=== PATIENT | female | born 1935 | race Caucasian/White ===

== ENCOUNTER 2017-06-10 17:16 | Inpatient (IN) | payer OTHER ==
[~2017-06-10] VITALS: Ht 152.4 cm; Wt 54.2 kg
[2017-06-10] VITALS (12 sets, daily range): BP systolic 97–134; BP diastolic 58–81; PULSE 54–106; TEMP 36.2–37.1; O2SAT 97–98; Ht 152.4 cm; Wt 54.2 kg
[2017-06-10] MEDS ORDERED: ALUMINUM/MAGNESIUM/SIMETH (MAALOX MAX) 30 ML UDC PO PRN (18:30)
[2017-06-10] MEDS ORDERED: OXYCODONE HCL IR 5 MG TAB (IMMEDIATE RELEASE) PO PRN (18:30)
[2017-06-10] MEDS ORDERED: ACETAMINOPHEN 325 MG TAB PO PRN (18:30)
[2017-06-10] MEDS ORDERED: NITROGLYCERIN 0.4 MG SL PER TAB CHARGE SL PRN (18:30)
[2017-06-10 19:19] LABS: HEMATOCRIT 32.4 % (37-47); HEMOGLOBIN 9.9 g/dL (12.0-16.0); MEAN CELL VOLUME 91.8 fL (80-100); MEAN CORPUSCULAR HGB CONC 30.6 g/dl (32-36); MEAN PLATELET VOLUME 11.1 fL (7.4-10.4); PLATELET COUNT 283 K/uL (130-400); RED CELL DISTRIBUTION WIDTH CV 23.9 % (11.5-14.5); RED CELL DISTRIBUTION WIDTH SD 79.6 fL (36.4-46.3); WHITE BLOOD COUNT 9.52 K/uL (4.8-10.8)
--- NOTE | 2017-06-10 19:28 | HISTORY & PHYSICAL EXAMINATION ---
DATE OF ADMISSION: 06/10/2017 CHIEF COMPLAINT: Not feeling well, end-stage renal disease requiring dialysis. HISTORY OF PRESENT ILLNESS: This is an 82-year-old female with past medical history significant for chronic kidney disease stage IV, paroxysmal atrial fibrillation, chronic combined systolic and diastolic heart failure, hypertension, history of branch retinal vein occlusion, history of anemia, GERD, history of malignant neoplasm of colon, iron deficiency anemia, mitral and aortic incompetence, history of neutropenia, history of peripheral vascular disease, history of restless leg syndrome, history of hypothyroidism, osteoporosis, hyperlipidemia who was directly admitted by nephrology for dialysis. The patient recently 3 weeks ago was in [facility] and had a tunneled catheter placed and had dialysis 2 sessions. After that, the tunneled catheter was removed. As per family and patient they do not know why the dialysis was stopped and after going home she was not feeling well, still weak and tired, poor appetite, not feeling well and nephrology again decided to restart the dialysis and the dialysis catheter was again replaced and she was directly admitted for reinitiating of dialysis. She also has a bruise in her left upper extremity from the recent fistula placement. The patient denies any headaches. No blurred visions, some dizziness. No nausea, no vomiting, no chest pain, no shortness of breath, no cough, no fever, no chills, no abdominal pain. Constipated. Otherwise, feeling weak and tired and not walking much at home because of weakness and she lives with her son and family. Currently resting comfortably . ALLERGIES: CLARITHROMYCIN, PENICILLIN, SULFA ANTIBIOTICS. PAST MEDICAL HISTORY: As mentioned above. PAST SURGICAL HISTORY: Biopsy of the breast, colonoscopy with biopsy, tunneled catheter insertion, laparoscopic cholecystectomy, partial removal of colon, removal of ruptured appendix, cataract surgery, left carotid endarterectomy, total hysterectomy. The patient also has a right axillary to right femoral bypass and fem-fem bypass surgery. MEDICATIONS: The patient is on Toprol-XL 50 mg b.i.d., Colace 100 mg p.o. b.i.d., oxycodone 5 mg every 4 hours p.r.n., Tylenol 325 mg as needed, potassium chloride 20 mEq p.o. daily, Bumex 2 mg p.o. b.i.d., multivitamin with minerals 1 tablet daily, ferrous sulfate 325 mg p.o. b.i.d., cholecalciferol 5000 units p.o. daily, nitroglycerin 0.4 mg sublingual p.r.n., levothyroxine 112 mcg p.o. daily, amiodarone 200 mg p.o. daily, Lipitor 80 mg p.o. daily, oxygen 1 liter as directed at bedtime, Eliquis 2.5 mg p.o. b.i.d., vitamin B6 250 mg p.o. daily, calcitetrol 0.25 mcg p.o. daily, Requip 0.5 mg p.o. at bedtime, aspirin 81 mg p.o. daily. FAMILY HISTORY: Significant for father had throat cancer. Mother had diabetes. Sister has breast cancer and leukemia. Brother had leukemia. SOCIAL HISTORY: . Former smoker, quit in 1992. No alcohol use. No drug use. Currently lives with her son and family. REVIEW OF SYMPTOMS: As per HPI. Rest of review of systems negative. PHYSICAL EXAMINATION: GENERAL: Old and frail, not in distress. The physical exam reveals alert and oriented x3, not in distress. VITAL SIGNS: Currently unavailable. HEENT: No pallor, no icterus. NECK: No JVD, no neck masses, no carotid bruits. CARDIOVASCULAR: S1, S2 heard, regular rate and rhythm, no murmur, no gallop. RESPIRATORY SYSTEM: Clear to auscultation bilaterally. No wheezing, mild bibasilar crackles. ABDOMEN: Soft, bowel sounds present. Nontender. No distention. CENTRAL NERVOUS SYSTEM: Cranial nerves II-XII grossly intact. Nonfocal. EXTREMITIES: Trace edema. No erythema seen. LABORATORIES: Unavailable at this time. ASSESSMENT AND PLAN: This is an 82-year-old female who presents with not feeling well and requiring dialysis. 1. Chronic end-stage renal disease requiring dialysis. The patient was recently in [place] for 2 session of dialysis, but tunneled catheter was removed and since discharged not feeling well, weak and tired, poor appetite . Nephrology direct admitted for reinitiating dialysis. The patient already had tunneled catheter replaced, has a fistula placed in the left upper extremity which is bruised. Plan is to reinitiate dialysis tonight. Follow the labs. As per nephrology to continue home medication of Bumex 2 mg b.i.d. and also potassium chloride 20 mEq p.o. daily and follow the labs . 2. History of atrial fibrillation, rate controlled. Continue Toprol-XL 50 mg p.o. b.i.d., amiodarone 200 mg p.o. daily and Eliquis 2.5 mg p.o. b.i.d. Monitor on tele floor. 3. History of hypertension. Continue Toprol-XL and diuretics. Monitor the blood pressure. 4. History of hyperlipidemia. Continue statin. 5. History of hypothyroidism. Continue Synthroid. 6. History of restless legs syndrome. Continue Requip. 7. History of chronic combined systolic and diastolic heart failure. The patient is on Bumex 2 mg b.i.d., which we will continue. The patient is also getting dialysis. We will consulted cardiology for further optimizing her medical management. 8. Gastroesophageal reflux disease, proton pump inhibitor. 9. Anemia most likely anemia of chronic kidney disease . on iron supplements. We will follow the labs. 10. Deep vein thrombosis prophylaxis, SCDs and TEDs and eliquis 11. Disposition: Close monitor in tele floor. PT and OT prior to discharge. Social service to help with discharge planning. Level 1 full code. MTDD
--- NOTE | 2017-06-10 19:31 | DIAGNOSTIC IMAGING REPORT ---
CHEST ONE VIEW PORTABLE CLINICAL HISTORY: sob COMPARISON STUDY: No previous studies for comparison. FINDINGS: The heart is enlarged. There is a right sided dual-lumen central venous catheter.[ There is radiographic evidence of congestive failure/fluid overload. There are bilateral pleural effusions right greater than left. Right basilar airspace opacities likely representing compressive atelectasis. IMPRESSION: Cardiomegaly and radiographic evidence of congestive failure/fluid overload. Bilateral pleural effusions right greater than left. Electronically signed by: Jayant Velarde M.D. 06/10/2017 7:29 PM Dictated Date/Time: 06/10/2017 7:28 PM
[2017-06-10 19:41] LABS: CALCIUM 8.8 mg/dl (8.5-10.1); CREATININE 2.2 mg/dl (0.60-1.20); POTASSIUM 3.7 mmol/L (3.5-5.1)
[2017-06-10] MEDS ORDERED: HEPARIN SOD 5000 UNIT/0.5 ML CARP SQ SCH (21:00)
[2017-06-10] MEDS: METOPROLOL SUCC 50MG EXT REL TAB PO SCH (22:19)
[2017-06-10] MEDS: APIXABAN 2.5 MG TAB PO SCH (22:19)
[2017-06-10] MEDS: ROPINIROLE HCL 0.25 MG TAB PO SCH (22:19)
[2017-06-11] VITALS (21 sets, daily range): BP systolic 84–112; BP diastolic 54–73; PULSE 51–75; TEMP 36.3–37; O2SAT 93–98
[2017-06-11 06:29] LABS: BASO % 0.5 %; BASO ABS # 0.04 K/uL (0-0.2); EOS % 2.6 %; EOS ABS # 0.19 K/uL (0-0.5); HEMATOCRIT 28.5 % (37-47); HEMOGLOBIN 8.7 g/dL (12.0-16.0); IG# 0.02 K/uL (0.00-0.02); LYMPH % 11.2 %; LYMPH ABS # 0.83 K/uL (1.2-3.4); MEAN CELL VOLUME 92.2 fL (80-100); MEAN CORPUSCULAR HEMOGLOBIN 28.2 pg (25-34); MEAN CORPUSCULAR HGB CONC 30.5 g/dl (32-36); MEAN PLATELET VOLUME 10.3 fL (7.4-10.4); MONO % 8.6 %; MONO ABS # 0.64 K/uL (0.11-0.59); NEUT % 76.8 %; NEUT ABS # 5.69 K/uL (1.4-6.5); PLATELET COUNT 197 K/uL (130-400); RED CELL DISTRIBUTION WIDTH CV 23.8 % (11.5-14.5); RED CELL DISTRIBUTION WIDTH SD 79.3 fL (36.4-46.3); WHITE BLOOD COUNT 7.41 K/uL (4.8-10.8)
[2017-06-11 06:57] LABS: CALCIUM 8.4 mg/dl (8.5-10.1); CREATININE 1.58 mg/dl (0.60-1.20); POTASSIUM 3.5 mmol/L (3.5-5.1)
[2017-06-11] MEDS: LEVOTHYROXINE 112 MCG TAB PO SCH (07:40)
[2017-06-11] MEDS: FERROUS SULFATE 325 MG TAB PO SCH ×2 (07:41→17:45)
--- NOTE | 2017-06-11 08:51 | Progress Note ---
Internal Med Progress Note Date of Service: Jun 11, 2017. Provider Documentation: SUBJECTIVE: Seen and examined at bedside Had dialysis yesterday and planned for dialysis today as well Denies chest pain, SOB, dizziness Nausea resolved BP on lower side this morning No other complaints OBJECTIVE: Vital Signs-as noted below Physical Exam: General Appearance:Moderately built and nourished, no apparent distress Head: normocephalic, Atraumatic Eyes: normal inspection, EOMI, PERRL Neck: supple, Trachea midline Respiratory/Chest: Normal breath sounds, CTA Cardiovascular: S1, S2, No murmur Abdomen/GI:Soft, Non tender, Bowel sounds present Extremities/Musculoskelatal:normal inspection, Trace edema Neurologic/Psych:AAOX3, grossly no focal neurological deficits Skin: normal color, warm Lab data as noted below. ASSESSMENT & PLAN: Patient is an 82-year-old female who presents with not feeling well and requiring dialysis. Patient is a direct admit on recommendations from Nephrology for reinitiation of Dialysis Chronic ESRD: Volume overload status: Dialysis as per Nephrology Continue Bumex 2 mg b.i.d, potassium chloride 20 mEq p.o. Monitor electrolytes Nephrology on board H/O atrial fibrillation: Sinus Bradycardia Rate controlled Continue amiodarone 200 mg daily Metoprolol on hold secondary to bradycardia On Eliquis for anticoagulation HTN: Continue diuretics Metoprolol on hold HLP: Continue statin. Hypothyroidism: Continue Synthroid Restless legs syndrome: Continue Requip H/O chronic combined systolic and diastolic heart failure: on Bumex Also volume status being managed through dialysis Cardiology consulted PVD Non specific ST-T wave changes Could not get cardiac cath in the past secondary to severe PVD Denies chest pain Continue ASA, stains GERD: Continue PPI Anemia OF chronic kidney disease: continue Iron supplements DVT Px: On eliquis Code Status: Full code Disposition: PT/OT Social service consulted Vital Signs: Date Time Temp Pulse Resp B/P (MAP) Pulse Ox O2 Delivery O2 Flow Rate FiO2 06/11/17 08:15 55 84/56 (65) 06/11/17 08:00 93 Nasal Cannula 1.0 06/11/17 07:07 36.7 53 16 93/57 (69) 96 Nasal Cannula 2.0 06/11/17 04:00 Nasal Cannula 2.0 06/11/17 03:58 36.4 51 17 99/62 (74) 97 Nasal Cannula 2.0 06/11/17 00:01 Nasal Cannula 2.0 06/11/17 00:00 36.6 51 16 90/54 (66) 98 Room Air 06/10/17 21:47 36.2 57 116/75 (89) 06/10/17 21:45 61 113/58 06/10/17 21:30 56 117/66 06/10/17 21:15 55 115/59 06/10/17 21:00 54 114/67 06/10/17 20:45 76 122/80 06/10/17 20:30 79 129/80 06/10/17 20:15 81 123/74 06/10/17 20:00 97 Nasal Cannula 2.0 06/10/17 20:00 75 111/63 06/10/17 19:44 36.6 76 134/81 (98) 06/10/17 19:18 36.6 74 22 106/72 (83) 97 Nasal Cannula 2.0 06/10/17 18:17 37.1 106 18 97/66 98 Nasal Cannula 2.0 Lab Results: Results Past 24 Hours Test 06/10/17 19:06 06/11/17 06:04 Range/Units White Blood Count 9.52 7.41 4.8-10.8 K/uL Red Blood Count 3.53 3.09 4.2-5.4 M/uL Hemoglobin 9.9 8.7 12.0-16.0 g/dL Hematocrit 32.4 28.5 37-47 % Mean Corpuscular Volume 91.8 92.2 80-100 fL Mean Corpuscular Hemoglobin 28.0 28.2 25-34 pg Mean Corpuscular Hemoglobin Concent 30.6 30.5 32-36 g/dl RDW Standard Deviation 79.6 79.3 36.4-46.3 fL RDW Coefficient of Variation 23.9 23.8 11.5-14.5 % Platelet Count 283 197 130-400 K/uL Mean Platelet Volume 11.1 10.3 7.4-10.4 fL Sodium Level 136 140 136-145 mmol/L Potassium Level 3.7 3.5 3.5-5.1 mmol/L Chloride Level 101 104 98-107 mmol/L Carbon Dioxide Level 27 27 21-32 mmol/L Anion Gap 8.0 9.0 3-11 mmol/L Blood Urea Nitrogen 42 28 7-18 mg/dl Creatinine 2.20 1.58 0.60-1.20 mg/dl Est Creatinine Clear Calc Drug Dose 16.0 22.1 ml/min Estimated GFR () 23.6 35.2 Estimated GFR (Non- 20.4 30.4 BUN/Creatinine Ratio 19.0 17.4 10-20 Random Glucose 102 80 70-99 mg/dl Calcium Level 8.8 8.4 8.5-10.1 mg/dl Chemistry Specimen Hemolysis Neutrophils (%) (Auto) 76.8 % Lymphocytes (%) (Auto) 11.2 % Monocytes (%) (Auto) 8.6 % Eosinophils (%) (Auto) 2.6 % Basophils (%) (Auto) 0.5 % Neutrophils # (Auto) 5.69 1.4-6.5 K/uL Lymphocytes # (Auto) 0.83 1.2-3.4 K/uL Monocytes # (Auto) 0.64 0.11-0.59 K/uL Eosinophils # (Auto) 0.19 0-0.5 K/uL Basophils # (Auto) 0.04 0-0.2 K/uL Immature Granulocyte % (Auto) 0.3 % Immature Granulocyte # (Auto) 0.02 0.00-0.02 K/uL Polychromasia 1+ Anisocytosis PRESENT Ovalocytes 1+ Schistocytes OCCASIONAL Magnesium Level 2.1 1.8-2.4 mg/dl
--- NOTE | 2017-06-11 09:49 | NEPHROLOGY CONSULTATION ---
DATE OF CONSULTATION: 06/11/2017 ATTENDING OF RECORD: Dr. Oakley. REASON FOR CONSULTATION: End-stage renal disease with volume overload. HISTORY OF PRESENT ILLNESS: This is an 82-year-old female who follows closely with [facility] Cardiology with paroxysmal aFib as well as systolic and diastolic heart failure who was recently admitted to [facility] and had 2 dialysis treatments and subsequently had the dialysis catheter removed and discharged. The patient after discharge slowly started to gain fluid, become more short of breath, was weak and tired with poor appetite. The patient was also having worsening pain with walking and there was a concern that her bypass to her legs may be compromised. Decided to start outpatient dialysis; however, given her rales at the right base and her propensity to become short of breath rather quickly, decided to bring her in to the hospital and started dialysis with fluid removal last night. The patient had her first 2-hour treatment last night with a low blood flow, catheter working well and tolerated the 500 mL fluid removal, currently getting her second dialysis treatment this morning, lying flat and is comfortable, going for 1 liter UF for this treatment. PAST MEDICAL HISTORY: CKD stage IV, paroxysmal aFib, systolic and diastolic heart failure, history of colon cancer, iron deficiency anemia, peripheral vascular disease, hypothyroidism, and hyperlipidemia. PAST SURGICAL HISTORY: Cholecystectomy, tunneled dialysis catheter, appendectomy, cataract surgery, left CEA, bypass to the legs, right femoral with fem-fem bypass surgery. MEDICATIONS: Reviewed. FAMILY HISTORY: Significant for cancer. SOCIAL HISTORY: No alcohol, no drugs. Former smoker, quit in 1992. Lives with family. REVIEW OF SYSTEMS: Positive fatigue, positive decreased appetite. Positive constipation. Positive shortness of breath. Positive 5-pound weight gain. No itching. No chest pain. Positive nausea, no vomiting. All other review of systems otherwise negative. PHYSICAL EXAMINATION: VITAL SIGNS: Temperature 36.7, pulse 55, respiratory rate 16, blood pressure 84/56, satting 93% on 1 liter. GENERAL: Awake, alert, oriented x3. EYES: No scleral icterus. ENT: Moist mucous membranes. NECK: Supple. PULMONARY: Right-sided rales. CARDIAC: Regular rate and rhythm. ABDOMEN: Bowel sounds positive, soft, nontender. EXTREMITIES: Mild edema. NEUROLOGICALLY: Nonfocal. DERM: No rash or ulcers noted. LABORATORY DATA: White count 7.4, H&H 8.7 and 28.5, platelet count is 197. Sodium level is 140, potassium 3.5, chloride is 104, bicarbonate is 27, BUN is 28, creatinine is 1.58, calcium is 8.4, mag is 2.1. IMAGING DATA: Chest x-ray shows cardiomegaly with radiographic evidence of congestive heart failure, fluid overload; bilateral pleural effusions, right greater than left. IMPRESSION AND PLAN: 1. Chronic kidney disease stage IV with recurrent recalcitrant volume overload, who started to develop uremic signs and symptoms despite creatinine in the low 2's. Given her propensity to become volume overloaded quickly and failing outpatient diuretic therapy multiple times, decided between her, her family and myself to initiate dialysis secondary to uremic symptoms and recalcitrant volume overload. Will attempt to control her volume status through a fluid restriction, Bumex and dialysis, currently on Bumex 2 mg p.o. b.i.d. Continues on the Potassium 20 mEq daily. 2. Anemia of renal failure. The patient does have significant iron deficiency anemia, not yet on Procrit. Will go ahead and give IV Venofer to help raise hemoglobin levels. 3. Renal osteodystrophy. We will follow phosphorous levels and consider initiating phosphate binders, if phosphorus levels are elevated. Continue the calcitriol and vitamin D for now. Appreciate consultation.
[2017-06-11] MEDS ORDERED: IRON SUCROSE INJ 100 MG in SYRINGE 0 ML IV SCH (10:15)
--- NOTE | 2017-06-11 11:44 | CARDIOLOGY CONSULTATION ---
DATE OF CONSULTATION: 06/11/2017 DATE OF CONSULTATION: 06/11/2017 REFERRING PHYSICIAN: Dr. Cartwright, Dr. Jones. INDICATIONS: Ongoing cardiac care. Acute renal failure. HISTORY OF PRESENT ILLNESS: The patient is an 82-year-old female with complex cardiac history issues as follows: 1. History of atherosclerotic peripheral vascular disease status post right axillary femoral bypass and fem-fem bypass surgery. 2. History of left carotid endarterectomy 2015. 3. Past paroxysmal, now persistent atrial fibrillation. 4. 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 5. Chronic/end-stage renal insufficiency with volume overload. 6. Hypertension. 7. Hyperlipidemia. The patient is referred now after hospitalization with progressive difficulties with acute volume overload with chronic systolic and diastolic heart failure, end-stage renal disease, inability to be managed with oral or IV medications. The patient had undergone prior transient dialysis in April at [facility] with improvement in symptoms. Attempts were made once again due to manage medically with once again lapse into acute volume overload and symptomatic diastolic heart failure. She is referred now for initiation of dialysis. The patient at the time of examination is currently undergoing dialysis, had received a course of dialysis evening prior with improvement in symptoms, feels less dyspneic, slept well last night. Notes no chest pains. Notes not tachypalpitations. Notes no dizziness or lightheadedness. Notes no overt bleeding difficulties other than mild hemorrhoidal irritation. The patient notes no dysuria with minimal urine outputs. Notes no headache or visual changes. Notes no acute neurologic deficits. Notes no worsening claudication. ALLERGIES: PENICILLIN. MEDICATIONS PRIOR TO HOSPITALIZATION: Amiodarone 200 mg p.o. daily, Eliquis 2.5 mg twice per day, aspirin 81 mg per day, atorvastatin 80 mg p.o. daily, Bumex 2 mg b.i.d., ferrous sulfate 325 b.i.d., levothyroxine 112 mcg p.o. daily, calcitriol and cholecalciferol supplements, Colace b.i.d., metoprolol succinate 50 mg b.i.d., multivitamin per day, oxycodone p.r.n. pain, potassium chloride 20 mEq daily, vitamin B6 and Requip 0.5 mg at bedtime. PAST SURGICAL HISTORY: Notable for AV access insertion 06/06/2017, prior past breast biopsy, laparoscopic cholecystectomy, partial colectomy for colon carcinoma, appendectomy, cataract extraction, left carotid endarterectomy in December 2015, remote hysterectomy, prior right axillary fem and fem-fem bypass graft 2012. FAMILY HISTORY: Noncontributory. SOCIAL HISTORY: The patient is a nonsmoker since 1992. Uses no significant alcoholic beverages. PHYSICAL EXAMINATION: GENERAL: The patient is currently on dialysis. VITAL SIGNS: During examination revealed a heart rate of 58, blood pressure 112/73. HEAD, EYES, EARS, NOSE, AND THROAT: Normocephalic, atraumatic. Nares without discharge. Throat was clear. NECK: Without distinct jugular venous distention. LUNGS: Reveal diminished breath sounds predominantly at the bases. CARDIOVASCULAR: Regular. There is no S3 gallop. ABDOMEN: Soft. EXTREMITIES: Reveal 1-2+ lower extremity edema. NEUROLOGIC: The patient is answering questions appropriately. LABORATORY DATA: White cell count 7.4, hemoglobin is 8.7. Platelet count 197. EKG on presentation revealed sinus rhythm with a rate of 74 with QT corrected of 521. IMPRESSION: An 82-year-old female with a history of diffuse vascular disease as outlined, presumed ischemic heart disease with the patient unable to undergo diagnostic cardiac catheterization due to lack of vascular access, mild left ventricular dysfunction, presents now with worsening end-stage renal disease and acute volume overload and unable to be managed without dialysis. The patient is initiating dialysis for management volume status and is tolerating well initially. We will repeat EKG today. Consideration will be made for reduction of amiodarone dosing in the future. This is being used for control of past paroxysmal atrial fibrillation with combination of metoprolol. QT was elevated on initial presentation. We will repeat study today. All other medications will be continued as planned. The patient on minimal antihypertensives with blood pressures sometimes marginal. Overall, patient appears to be tolerating dialysis well at current time. We will follow patient in the hospital.
[2017-06-11] MEDS: AMIODARONE 200 MG TAB PO SCH (13:24)
[2017-06-11] MEDS: CALCITRIOL 0.25 MCG CAP PO SCH (13:24)
[2017-06-11] MEDS: APIXABAN 2.5 MG TAB PO SCH ×2 (13:24→21:57)
[2017-06-11] MEDS: PYRIDOXINE HCL 50 MG TAB PO SCH (13:24)
[2017-06-11] MEDS: ASPIRIN 81 MG ECTAB PO SCH (13:24)
[2017-06-11] MEDS: CHOLECALCIFEROL 1000 INTER.UNIT TAB PO SCH (13:25)
[2017-06-11] MEDS: POTASSIUM CHLORIDE 20 MEQ TABCR PO SCH (13:26)
[2017-06-11] MEDS: ATORVASTATIN 40 MG TAB PO SCH (13:26)
[2017-06-11] MEDS: CEROVITE ADV FORMULA TAB PO SCH (13:26)
[2017-06-11] MEDS: BUMETANIDE 1 MG TAB PO SCH ×2 (13:27→17:45)
[2017-06-11] MEDS: METOPROLOL SUCC 50MG EXT REL TAB PO SCH ×2 (13:27→22:00)
[2017-06-11] MEDS: DOCUSATE SODIUM 100 MG CAP PO PRN ×2 (13:36→17:48)
[2017-06-11] MEDS: POLYETHYLENE (MIRALAX) 17 GM PACK PO PRN (13:37)
[2017-06-11] MEDS: ONDANSETRON INJ 2 MG/ML 2 ML VIAL IV PRN (17:49)
[2017-06-11] MEDS: ROPINIROLE HCL 0.25 MG TAB PO SCH (21:57)
[2017-06-12] VITALS (22 sets, daily range): BP systolic 84–116; BP diastolic 48–71; PULSE 52–73; TEMP 36.3–37.3; O2SAT 88–99
[2017-06-12] MEDS: LEVOTHYROXINE 112 MCG TAB PO SCH (06:11)
[2017-06-12 06:14] LABS: BASO % 0.5 %; BASO ABS # 0.04 K/uL (0-0.2); EOS % 1.3 %; EOS ABS # 0.11 K/uL (0-0.5); HEMATOCRIT 28.6 % (37-47); HEMOGLOBIN 8.7 g/dL (12.0-16.0); IG# 0.03 K/uL (0.00-0.02); LYMPH % 11.7 %; LYMPH ABS # 0.96 K/uL (1.2-3.4); MEAN CELL VOLUME 92.6 fL (80-100); MEAN CORPUSCULAR HEMOGLOBIN 28.2 pg (25-34); MEAN CORPUSCULAR HGB CONC 30.4 g/dl (32-36); MEAN PLATELET VOLUME 10.7 fL (7.4-10.4); MONO % 10.6 %; MONO ABS # 0.87 K/uL (0.11-0.59); NEUT % 75.5 %; NEUT ABS # 6.22 K/uL (1.4-6.5); NUCLEATED RED BLOOD CELL ABS 0.22 K/uL (0-0); PLATELET COUNT 198 K/uL (130-400); RED CELL DISTRIBUTION WIDTH CV 23.9 % (11.5-14.5); RED CELL DISTRIBUTION WIDTH SD 80.3 fL (36.4-46.3); WHITE BLOOD COUNT 8.23 K/uL (4.8-10.8)
[2017-06-12 06:47] LABS: CALCIUM 8.1 mg/dl (8.5-10.1); CREATININE 1.85 mg/dl (0.60-1.20)
[2017-06-12] MEDS: FERROUS SULFATE 325 MG TAB PO SCH ×2 (07:54→17:07)
[2017-06-12] MEDS: CALCITRIOL 0.25 MCG CAP PO SCH (07:54)
[2017-06-12] MEDS: CEROVITE ADV FORMULA TAB PO SCH (07:54)
[2017-06-12] MEDS: CHOLECALCIFEROL 1000 INTER.UNIT TAB PO SCH (07:54)
[2017-06-12] MEDS: ASPIRIN 81 MG ECTAB PO SCH (07:55)
[2017-06-12] MEDS: APIXABAN 2.5 MG TAB PO SCH ×2 (07:55→20:49)
[2017-06-12] MEDS: PYRIDOXINE HCL 50 MG TAB PO SCH (07:55)
[2017-06-12] MEDS: AMIODARONE 200 MG TAB PO SCH (07:55)
[2017-06-12] MEDS: ATORVASTATIN 40 MG TAB PO SCH (07:55)
[2017-06-12] MEDS: POTASSIUM CHLORIDE 20 MEQ TABCR PO SCH (07:55)
[2017-06-12] MEDS: METOPROLOL SUCC 50MG EXT REL TAB PO SCH (07:56)
[2017-06-12] MEDS ORDERED: IRON SUCROSE INJ 100 MG in SYRINGE 0 ML IV ONE (08:00)
[2017-06-12] MEDS: DOCUSATE SODIUM 100 MG CAP PO PRN (08:08)
--- NOTE | 2017-06-12 08:28 | Progress Note ---
Internal Med Progress Note Date of Service: Jun 12, 2017. Provider Documentation: SUBJECTIVE: Seen and examined at bedside Complains of LUE pain at the AV fistula site Planned for dialysis today Denies chest pain, SOB, dizziness No other complaints OBJECTIVE: Vital Signs-as noted below Physical Exam: General Appearance:Moderately built and nourished, no apparent distress Head: normocephalic, Atraumatic Eyes: normal inspection, EOMI, PERRL Neck: supple, Trachea midline Respiratory/Chest: Normal breath sounds, CTA Cardiovascular: S1, S2, No murmur Abdomen/GI:Soft, Non tender, Bowel sounds present Extremities/Musculoskelatal:normal inspection, Trace edema , LUE ecchymosis, AV fistula Neurologic/Psych:AAOX3, grossly no focal neurological deficits Skin: normal color, warm Lab data as noted below. ASSESSMENT & PLAN: Patient is an 82-year-old female who presents with not feeling well and requiring dialysis. Patient is a direct admit on recommendations from Nephrology for reinitiation of Dialysis Chronic ESRD: Volume overload status: Dialysis as per Nephrology Continue Bumex 2 mg b.i.d, potassium chloride 20 mEq daily Monitor electrolytes Appreciate Nephrology help Needs outpatient dialysis set up prior to discharge H/O atrial fibrillation: Sinus Bradycardia Rate controlled Continue amiodarone 200 mg daily Metoprolol dose decreased to 25mg BID secondary to bradycardia On Eliquis for anticoagulation Cardiology on board HTN: BP on lower side Continue diuretics, BB HLP: Continue statin. Hypothyroidism: Continue Synthroid Restless legs syndrome: Continue Requip H/O chronic combined systolic and diastolic heart failure: on Bumex Also volume status being managed through dialysis PVD Presumed Ischemic Heart disease Non specific ST-T wave changes Could not get cardiac cath in the past secondary to severe PVD Denies chest pain Continue ASA, stains, BB GERD: Continue PPI Anemia OF chronic kidney disease: continue Iron supplements Received IV Venofer DVT Px: On eliquis Code Status: Full code Disposition: PT/OT Social service consulted Vital Signs: Date Time Temp Pulse Resp B/P (MAP) Pulse Ox O2 Delivery O2 Flow Rate FiO2 06/12/17 07:49 36.3 56 16 88/56 (67) 98 Room Air 06/12/17 04:00 Nasal Cannula 1.0 06/12/17 03:39 37.3 53 16 99/63 (75) 97 06/12/17 00:01 Nasal Cannula 1.0 06/11/17 23:45 37.0 74 16 97/67 (77) 94 06/11/17 20:06 37.0 54 20 96/65 (75) 95 Nasal Cannula 1.0 06/11/17 20:00 Nasal Cannula 1.0 06/11/17 16:00 Nasal Cannula 1.0 06/11/17 15:44 36.9 67 22 102/70 (81) 94 Nasal Cannula 1.0 06/11/17 13:29 75 101/72 (82) 06/11/17 12:00 Nasal Cannula 1.0 06/11/17 11:46 59 110/72 06/11/17 11:43 36.3 59 110/72 (85) 06/11/17 11:15 60 108/68 06/11/17 11:01 58 96/62 06/11/17 10:46 58 112/73 06/11/17 10:32 57 108/70 06/11/17 10:15 57 102/68 06/11/17 10:00 56 104/63 06/11/17 09:45 54 100/59 Lab Results: Results Past 24 Hours Test 06/12/17 05:47 Range/Units White Blood Count 8.23 4.8-10.8 K/uL Red Blood Count 3.09 4.2-5.4 M/uL Hemoglobin 8.7 12.0-16.0 g/dL Hematocrit 28.6 37-47 % Mean Corpuscular Volume 92.6 80-100 fL Mean Corpuscular Hemoglobin 28.2 25-34 pg Mean Corpuscular Hemoglobin Concent 30.4 32-36 g/dl Platelet Count 198 130-400 K/uL Mean Platelet Volume 10.7 7.4-10.4 fL Neutrophils (%) (Auto) 75.5 % Lymphocytes (%) (Auto) 11.7 % Monocytes (%) (Auto) 10.6 % Eosinophils (%) (Auto) 1.3 % Basophils (%) (Auto) 0.5 % Neutrophils # (Auto) 6.22 1.4-6.5 K/uL Lymphocytes # (Auto) 0.96 1.2-3.4 K/uL Monocytes # (Auto) 0.87 0.11-0.59 K/uL Eosinophils # (Auto) 0.11 0-0.5 K/uL Basophils # (Auto) 0.04 0-0.2 K/uL RDW Standard Deviation 80.3 36.4-46.3 fL RDW Coefficient of Variation 23.9 11.5-14.5 % Immature Granulocyte % (Auto) 0.4 % Immature Granulocyte # (Auto) 0.03 0.00-0.02 K/uL Nucleated RBC Absolute Count (auto) 0.22 0-0 K/uL Nucleated Red Blood Cells % 2.7 % Polychromasia 1+ Anisocytosis PRESENT Sodium Level 135 136-145 mmol/L Potassium Level 4.0 3.5-5.1 mmol/L Chloride Level 103 98-107 mmol/L Carbon Dioxide Level 27 21-32 mmol/L Anion Gap 5.0 3-11 mmol/L Blood Urea Nitrogen 21 7-18 mg/dl Creatinine 1.85 0.60-1.20 mg/dl Est Creatinine Clear Calc Drug Dose 19.3 ml/min Estimated GFR () 29.1 Estimated GFR (Non- 25.1 BUN/Creatinine Ratio 11.4 10-20 Random Glucose 85 70-99 mg/dl Calcium Level 8.1 8.5-10.1 mg/dl Magnesium Level 2.0 1.8-2.4 mg/dl
[2017-06-12] MEDS: BUMETANIDE 1 MG TAB PO SCH ×2 (09:00→17:07)
--- NOTE | 2017-06-12 09:16 | Nephrology Progress Note ---
Nephrology Progress Note Date of Service: Jun 12, 2017. Subjective 82 yo female with recalcitrant volume overload requiring dialysis. removed 500cc the first treatment and 1 liter the second treatment. difficult with her bradycardia-not getting beta blockers and also with her low blood pressures. pt still tired with decreased appetite. feels better after having a bm. was constipated. Objective Date Time Temp Pulse Resp B/P (MAP) Pulse Ox O2 Delivery O2 Flow Rate FiO2 06/12/17 07:49 36.3 56 16 88/56 (67) 98 Room Air 06/12/17 04:00 Nasal Cannula 1.0 06/12/17 03:39 37.3 53 16 99/63 (75) 97 06/12/17 00:01 Nasal Cannula 1.0 06/11/17 23:45 37.0 74 16 97/67 (77) 94 06/11/17 20:06 37.0 54 20 96/65 (75) 95 Nasal Cannula 1.0 06/11/17 20:00 Nasal Cannula 1.0 06/11/17 16:00 Nasal Cannula 1.0 06/11/17 15:44 36.9 67 22 102/70 (81) 94 Nasal Cannula 1.0 06/11/17 13:29 75 101/72 (82) 06/11/17 12:00 Nasal Cannula 1.0 06/11/17 11:46 59 110/72 06/11/17 11:43 36.3 59 110/72 (85) 06/11/17 11:15 60 108/68 06/11/17 11:01 58 96/62 06/11/17 10:46 58 112/73 06/11/17 10:32 57 108/70 06/11/17 10:15 57 102/68 06/11/17 10:00 56 104/63 06/11/17 09:45 54 100/59 06/11/17 09:30 56 104/64 06/11/17 09:18 56 102/62 Physical Exam: General-aaox3 Eyes-no scleral icterus ENT-mmm Neck-supple Lungs-right basilar rales Heart-rrr Abdomen-bs+ s/nt/nd Extremities-no c/c/e Neuro-nonfocal Current Inpatient Medications Medications (Trade) Dose Ordered Sig/Lashae Route Start Time Stop Time Status Last Admin Dose Admin Acetaminophen (Tylenol Tab) 650 mg Q4H PRN PO 06/10/17 18:30 07/10/17 18:29 06/12/17 08:08 650 MG Al Hydrox/Mg Hydrox/Simethicone (Maalox Max Susp) 15 ml Q4H PRN PO 06/10/17 18:30 07/10/17 18:29 Ondansetron HCl (Zofran Inj) 4 mg Q6H PRN IV 06/10/17 18:30 07/10/17 18:29 06/11/17 17:49 4 MG Nitroglycerin (Nitrostat Tab) 0.4 mg UD PRN SL 06/10/17 18:30 07/10/17 18:29 Polyethylene (Miralax Powder Packet) 17 gm DAILY PRN PO 06/10/17 18:30 07/10/17 18:29 06/11/17 13:37 17 GM Metoprolol Succinate (Toprol Xl Tab) 50 mg BID PO 06/10/17 21:00 07/10/17 20:59 06/11/17 13:27 50 MG Docusate Sodium (coLACE CAP) 100 mg BID PRN PO 06/10/17 18:30 07/10/17 18:29 06/12/17 08:08 100 MG Oxycodone HCl (Roxicodone Immediate Rel Tab) 5 mg Q4 PRN PO 06/10/17 18:30 06/24/17 18:29 06/10/17 22:19 5 MG Bumetanide (Bumex Tab) 2 mg BID17 PO 06/11/17 09:00 07/11/17 08:59 06/11/17 17:45 2 MG Potassium Chloride (Klor-Con Tab) 20 meq QAM PO 06/11/17 09:00 07/11/17 08:59 06/12/17 07:55 20 MEQ Multivitamins/ Minerals (Multivitamin W/ Minerals Tab) 1 tab QAM PO 06/11/17 09:00 07/11/17 08:59 06/12/17 07:54 1 TAB Ferrous Sulfate (Feosol Tab) 325 mg BIDM PO 06/11/17 07:30 07/11/17 07:29 06/12/17 07:54 325 MG Cholecalciferol (Vitamin D Tab) 5,000 inter.unit QAM PO 06/11/17 09:00 07/11/17 08:59 06/12/17 07:54 5,000 INTER.UNIT Levothyroxine Sodium (Synthroid Tab) 112 mcg DAILYBB PO 06/11/17 06:00 07/11/17 05:59 06/12/17 06:11 112 MCG Amiodarone HCl (Cordarone Tab) 200 mg QAM PO 06/11/17 09:00 07/11/17 08:59 06/12/17 07:55 200 MG Atorvastatin Calcium (Lipitor Tab) 80 mg QAM PO 06/11/17 09:00 07/11/17 08:59 06/12/17 07:55 80 MG Apixaban (Eliquis Tab) 2.5 mg BID PO 06/10/17 21:00 07/10/17 20:59 06/12/17 07:55 2.5 MG Pyridoxine HCl (Vitamin B-6 Tab) 50 mg QAM PO 06/11/17 09:00 07/11/17 08:59 06/12/17 07:55 50 MG Calcitriol (Rocaltrol Cap) 0.25 mcg QAM PO 06/11/17 09:00 07/11/17 08:59 06/12/17 07:54 0.25 MCG Ropinirole HCl (Requip Tab) 0.5 mg HS PO 06/10/17 21:00 07/10/17 20:59 06/11/17 21:57 0.5 MG Aspirin (Ecotrin Tab) 81 mg QAM PO 06/11/17 09:00 07/11/17 08:59 06/12/17 07:55 81 MG Last 24 Hours Test 06/12/17 05:47 White Blood Count 8.23 K/uL Red Blood Count 3.09 M/uL Hemoglobin 8.7 g/dL Hematocrit 28.6 % Mean Corpuscular Volume 92.6 fL Mean Corpuscular Hemoglobin 28.2 pg Mean Corpuscular Hemoglobin Concent 30.4 g/dl Platelet Count 198 K/uL Mean Platelet Volume 10.7 fL Neutrophils (%) (Auto) 75.5 % Lymphocytes (%) (Auto) 11.7 % Monocytes (%) (Auto) 10.6 % Eosinophils (%) (Auto) 1.3 % Basophils (%) (Auto) 0.5 % Neutrophils # (Auto) 6.22 K/uL Lymphocytes # (Auto) 0.96 K/uL Monocytes # (Auto) 0.87 K/uL Eosinophils # (Auto) 0.11 K/uL Basophils # (Auto) 0.04 K/uL RDW Standard Deviation 80.3 fL RDW Coefficient of Variation 23.9 % Immature Granulocyte % (Auto) 0.4 % Immature Granulocyte # (Auto) 0.03 K/uL Nucleated RBC Absolute Count (auto) 0.22 K/uL Nucleated Red Blood Cells % 2.7 % Polychromasia 1+ Anisocytosis PRESENT Sodium Level 135 mmol/L Potassium Level 4.0 mmol/L Chloride Level 103 mmol/L Carbon Dioxide Level 27 mmol/L Anion Gap 5.0 mmol/L Blood Urea Nitrogen 21 mg/dl Creatinine 1.85 mg/dl Est Creatinine Clear Calc Drug Dose 19.3 ml/min Estimated GFR () 29.1 Estimated GFR (Non- 25.1 BUN/Creatinine Ratio 11.4 Random Glucose 85 mg/dl Calcium Level 8.1 mg/dl Magnesium Level 2.0 mg/dl Assessment & Plan CKD stage 4 who has now progressed to ESRD secondary to volume overload issues. continue dialysis and will attempt albumin with dialysis to see if able to remove fluid better. arranging for [facility] dialysis unit. Anemia-has significant iron deficiency and giving iv venofer prior to initiating procrit.
[2017-06-12] MEDS: ALBUMIN HUMAN 25% 12.5 GM/50 ML VIAL IV SCH ×2 (10:35→11:30)
--- NOTE | 2017-06-12 10:36 | Cardiology Follow-Up ---
Subjective General Date of Service: Jun 12, 2017. Chief Complaint: SOB Pt evaluation today including: conversation w/ patient, physical exam, chart review, lab review, review of studies, review of inpatient medication list History of Present Illness Patient currently getting dialysis. Having issues with asymptomatic hypotension. SOB improved this AM at rest. Still dyspneic with minimal exertion. No chest pain. No dizziness, syncope or near syncope. Allergies Coded Allergies: Penicillins (Verified Allergy, Intermediate, ARM EDEMA, 06/10/17) Social History Smoking Status: Former Smoker Hx Tobacco Use In Past Year?: No Hx Alcohol Use - Type And Amou: No Hx Substance Use - Type And Am: No Review of Systems Respiratory: + dyspnea on exertion, No cough, No wheezing, No dyspnea at rest, No hemoptysis Cardiac: No chest pain, No orthopnea, No PND, No edema, No palpitations Physical Exam Vital Signs Last Vital Signs Documentation Date Time Temp Pulse Resp B/P (MAP) Pulse Ox O2 Delivery O2 Flow Rate FiO2 06/12/17 07:49 36.3 56 16 88/56 (67) 98 Room Air 06/12/17 04:00 1.0 Physical Exam Constitutional: General Apperance: cachectic Level of Distress: NAD, acutely ill, chronically ill Psychiatric: Mental Status: active & alert Orientation: to time, to place, to person Head: normocephalic Eyes: Pupils: PERRLA Neck: supple Lungs: Auscultation: no rales/crackles, deminished air movement Cardiovascular: Heart Auscultation: RRR, no murmurs Abdomen: Bowel Sounds: normal Inspection & Palpation: soft Extremities: no edema Assessment and Plan Assessment and Plan 82 year old female 1. Acute on chronic systolic heart failure, complicated by chronic end stage renal disease -patient admitted to initiate chronic dialysis to aid with volume status. 2. Presumed ischemic cardiomyopathy with recent attempt at diagnostic cardiac cath was unable to be completed due to diffuse vascular disease 3. Paroxysmal atrial fib, currently maintaining NSR. On amiodarone. On Eliquis. Prolonged QT noted on admission EKG. Repeat. May need reduction in Amiodarone dose 4. Hypotension and bradycardia - metoprolol succinate reduced from 50 mg BID to 25 mg BID with change to holding parameters. -hold bumex Case discussed with Dr. De La Rosa. Will follow. Patient seen and examined assessment and plan as above discussed in detail Beta jess reduced as above to allow better BP but will require given past atrial arrhythmias -- poorly tolerated Justo De La Rosa MD. Justo De La Rosa MD Laboratory Results Last 24 Hours Test 06/12/17 05:47 White Blood Count 8.23 K/uL Red Blood Count 3.09 M/uL Hemoglobin 8.7 g/dL Hematocrit 28.6 % Mean Corpuscular Volume 92.6 fL Mean Corpuscular Hemoglobin 28.2 pg Mean Corpuscular Hemoglobin Concent 30.4 g/dl Platelet Count 198 K/uL Mean Platelet Volume 10.7 fL Neutrophils (%) (Auto) 75.5 % Lymphocytes (%) (Auto) 11.7 % Monocytes (%) (Auto) 10.6 % Eosinophils (%) (Auto) 1.3 % Basophils (%) (Auto) 0.5 % Neutrophils # (Auto) 6.22 K/uL Lymphocytes # (Auto) 0.96 K/uL Monocytes # (Auto) 0.87 K/uL Eosinophils # (Auto) 0.11 K/uL Basophils # (Auto) 0.04 K/uL RDW Standard Deviation 80.3 fL RDW Coefficient of Variation 23.9 % Immature Granulocyte % (Auto) 0.4 % Immature Granulocyte # (Auto) 0.03 K/uL Nucleated RBC Absolute Count (auto) 0.22 K/uL Nucleated Red Blood Cells % 2.7 % Polychromasia 1+ Anisocytosis PRESENT Sodium Level 135 mmol/L Potassium Level 4.0 mmol/L Chloride Level 103 mmol/L Carbon Dioxide Level 27 mmol/L Anion Gap 5.0 mmol/L Blood Urea Nitrogen 21 mg/dl Creatinine 1.85 mg/dl Est Creatinine Clear Calc Drug Dose 19.3 ml/min Estimated GFR () 29.1 Estimated GFR (Non- 25.1 BUN/Creatinine Ratio 11.4 Random Glucose 85 mg/dl Calcium Level 8.1 mg/dl Magnesium Level 2.0 mg/dl
[2017-06-12] MEDS: ONDANSETRON INJ 2 MG/ML 2 ML VIAL IV PRN (11:53)
[2017-06-12] MEDS: METOPROLOL SUCC 25MG EXT REL TAB PO SCH (20:49)
[2017-06-12] MEDS: ROPINIROLE HCL 0.25 MG TAB PO SCH (20:50)
[2017-06-13] VITALS (25 sets, daily range): BP systolic 85–125; BP diastolic 43–75; PULSE 54–66; TEMP 36.3–37; O2SAT 94–98
[2017-06-13] MEDS: LEVOTHYROXINE 112 MCG TAB PO SCH (05:31)
[2017-06-13 06:34] LABS: HEMATOCRIT 29.7 % (37-47); HEMOGLOBIN 8.9 g/dL (12.0-16.0); MEAN CELL VOLUME 93.1 fL (80-100); MEAN CORPUSCULAR HEMOGLOBIN 27.9 pg (25-34); NUCLEATED RED BLOOD CELL ABS 0.27 K/uL (0-0); PLATELET COUNT 200 K/uL (130-400); RED CELL DISTRIBUTION WIDTH CV 23.7 % (11.5-14.5); RED CELL DISTRIBUTION WIDTH SD 79.3 fL (36.4-46.3); WHITE BLOOD COUNT 8.83 K/uL (4.8-10.8)
[2017-06-13 07:08] LABS: CALCIUM 8.4 mg/dl (8.5-10.1); CREATININE 1.9 mg/dl (0.60-1.20); POTASSIUM 4.3 mmol/L (3.5-5.1)
[2017-06-13] MEDS: ONDANSETRON INJ 2 MG/ML 2 ML VIAL IV PRN (07:40)
[2017-06-13] MEDS: BUMETANIDE 1 MG TAB PO SCH ×2 (09:00→16:31)
[2017-06-13] MEDS: METOPROLOL SUCC 25MG EXT REL TAB PO SCH ×2 (09:00→20:51)
[2017-06-13] MEDS: FERROUS SULFATE 325 MG TAB PO SCH ×2 (09:07→16:31)
[2017-06-13] MEDS: AMIODARONE 200 MG TAB PO SCH (09:07)
[2017-06-13] MEDS: ATORVASTATIN 40 MG TAB PO SCH (09:07)
[2017-06-13] MEDS: APIXABAN 2.5 MG TAB PO SCH ×2 (09:07→20:51)
[2017-06-13] MEDS: ASPIRIN 81 MG ECTAB PO SCH (09:07)
[2017-06-13] MEDS: CEROVITE ADV FORMULA TAB PO SCH (09:07)
[2017-06-13] MEDS: CHOLECALCIFEROL 1000 INTER.UNIT TAB PO SCH (09:07)
[2017-06-13] MEDS: PYRIDOXINE HCL 50 MG TAB PO SCH (09:07)
[2017-06-13] MEDS: CALCITRIOL 0.25 MCG CAP PO SCH (09:07)
[2017-06-13] MEDS: POTASSIUM CHLORIDE 20 MEQ TABCR PO SCH (09:08)
[2017-06-13] MEDS ORDERED: IRON SUCROSE INJ 100 MG in SYRINGE 0 ML IV SCH (10:00)
[2017-06-13] MEDS ORDERED: ALBUMIN HUMAN 25% 12.5 GM/50 ML VIAL IV SCH (10:00)
--- NOTE | 2017-06-13 10:03 | Progress Note ---
Internal Med Progress Note Date of Service: Jun 13, 2017. Provider Documentation: SUBJECTIVE: Seen and examined at bedside Reports nausea this morning Planned for dialysis today LUE pain at the AV fistula site better Denies chest pain, SOB, dizziness No other complaints OBJECTIVE: Vital Signs-as noted below Physical Exam: General Appearance:Moderately built and nourished, no apparent distress Head: normocephalic, Atraumatic Eyes: normal inspection, EOMI, PERRL Neck: supple, Trachea midline Respiratory/Chest: Normal breath sounds, Basal Rales Cardiovascular: S1, S2, No murmur Abdomen/GI:Soft, Non tender, Bowel sounds present Extremities/Musculoskelatal:normal inspection, Trace edema , LUE ecchymosis, AV fistula Neurologic/Psych:AAOX3, grossly no focal neurological deficits Skin: normal color, warm Lab data as noted below. ASSESSMENT & PLAN: Patient is an 82-year-old female who presents with not feeling well and requiring dialysis. Patient is a direct admit on recommendations from Nephrology for reinitiation of Dialysis Chronic ESRD: Volume overload status: Dialysis as per Nephrology Continue Bumex 2 mg b.i.d, potassium chloride 20 mEq daily Monitor electrolytes Appreciate Nephrology help Needs outpatient dialysis set up prior to discharge Planned for dialysis today H/O atrial fibrillation: Sinus Bradycardia Rate controlled Continue amiodarone 200 mg daily Metoprolol dose decreased to 25mg BID secondary to bradycardia On Eliquis for anticoagulation Cardiology on board HTN: BP on lower side Continue diuretics, BB HLP: Continue statin. Hypothyroidism: Continue Synthroid Restless legs syndrome: Continue Requip H/O chronic combined systolic and diastolic heart failure: on Bumex Also volume status being managed through dialysis PVD Presumed Ischemic Heart disease Non specific ST-T wave changes Could not get cardiac cath in the past secondary to severe PVD Denies chest pain Continue ASA, stains, BB GERD: Continue PPI Anemia OF chronic kidney disease: continue Iron supplements Received IV Venofer DVT Px: On eliquis Code Status: Full code Disposition: PT/OT Social service consulted Vital Signs: Date Time Temp Pulse Resp B/P (MAP) Pulse Ox O2 Delivery O2 Flow Rate FiO2 06/13/17 11:05 36.5 61 16 96/66 (76) 96 Nasal Cannula 1.0 06/13/17 08:00 Room Air 06/13/17 07:43 36.5 61 18 91/67 (75) 94 Room Air 06/13/17 04:15 Nasal Cannula 1.0 06/13/17 03:17 36.5 54 18 110/75 (87) 98 06/13/17 00:30 Nasal Cannula 1.0 06/13/17 00:10 36.3 57 16 105/66 (79) 95 06/12/17 20:45 36.3 73 20 92/61 (71) 88 Room Air 06/12/17 20:00 Room Air 06/12/17 16:27 36.8 60 20 94/63 (73) 98 Nasal Cannula 1.0 06/12/17 16:00 98 Nasal Cannula 1.0 06/12/17 13:30 61 116/69 06/12/17 13:18 36.8 61 116/69 (85) 06/12/17 13:15 64 102/55 06/12/17 13:00 61 105/64 06/12/17 12:45 61 107/68 06/12/17 12:30 60 106/63 06/12/17 12:19 59 105/71 06/12/17 12:03 59 99/68 06/12/17 12:00 Room Air 06/12/17 12:00 59 100/67 06/12/17 11:52 36.7 57 18 94/64 (74) 99 Nasal Cannula 06/12/17 11:48 59 100/67 06/12/17 11:33 67 94/64 06/12/17 11:15 52 92/48 Lab Results: Results Past 24 Hours Test 06/13/17 06:03 Range/Units White Blood Count 8.83 4.8-10.8 K/uL Red Blood Count 3.19 4.2-5.4 M/uL Hemoglobin 8.9 12.0-16.0 g/dL Hematocrit 29.7 37-47 % Mean Corpuscular Volume 93.1 80-100 fL Mean Corpuscular Hemoglobin 27.9 25-34 pg Mean Corpuscular Hemoglobin Concent 30.0 32-36 g/dl RDW Standard Deviation 79.3 36.4-46.3 fL RDW Coefficient of Variation 23.7 11.5-14.5 % Platelet Count 200 130-400 K/uL Mean Platelet Volume 11.0 7.4-10.4 fL Nucleated RBC Absolute Count (auto) 0.27 0-0 K/uL Nucleated Red Blood Cells % 3.0 % Sodium Level 132 136-145 mmol/L Potassium Level 4.3 3.5-5.1 mmol/L Chloride Level 101 98-107 mmol/L Carbon Dioxide Level 25 21-32 mmol/L Anion Gap 6.0 3-11 mmol/L Blood Urea Nitrogen 14 7-18 mg/dl Creatinine 1.90 0.60-1.20 mg/dl Est Creatinine Clear Calc Drug Dose 18.5 ml/min Estimated GFR () 28.2 Estimated GFR (Non- 24.3 BUN/Creatinine Ratio 7.5 10-20 Random Glucose 88 70-99 mg/dl Calcium Level 8.4 8.5-10.1 mg/dl Magnesium Level 2.1 1.8-2.4 mg/dl
--- NOTE | 2017-06-13 10:46 | Cardiology Follow-Up ---
Subjective General Date of Service: Jun 13, 2017. Chief Complaint: SOB Pt evaluation today including: conversation w/ patient, physical exam, chart review, lab review, review of studies, review of inpatient medication list History of Present Illness Patient feeling poorly this AM. Noted significant nausea and dry heaving earlier today after breakfast. Symptoms improved with Zofran administration. No chest pain or SOB currently. Notes feeling significantly short of breath last night while trying to sleep. Reports "gasping for air". She did not report to nurse. No treatment provided. Symptoms currently at baseline. Allergies Coded Allergies: Penicillins (Verified Allergy, Intermediate, ARM EDEMA, 06/10/17) Social History Smoking Status: Former Smoker Hx Tobacco Use In Past Year?: No Hx Alcohol Use - Type And Amou: No Hx Substance Use - Type And Am: No Review of Systems Respiratory: + cough, + shortness of breath, + dyspnea on exertion, No sputum, No wheezing, No hemoptysis Cardiac: + orthopnea, No chest pain, No PND, No edema, No palpitations Physical Exam Vital Signs Last Vital Signs Documentation Date Time Temp Pulse Resp B/P (MAP) Pulse Ox O2 Delivery O2 Flow Rate FiO2 06/13/17 08:00 Room Air 06/13/17 07:43 36.5 61 18 91/67 (75) 94 06/13/17 04:15 1.0 Physical Exam Constitutional: General Apperance: cachectic Level of Distress: NAD, acutely ill, chronically ill Psychiatric: Mental Status: active & alert Orientation: to time, to place, to person Head: normocephalic Eyes: Pupils: PERRLA Neck: supple Lungs: Auscultation: deminished air movement, wet rales/crackles Cardiovascular: Heart Auscultation: RRR, no murmurs Abdomen: Bowel Sounds: normal Inspection & Palpation: soft Extremities: no edema Assessment and Plan Assessment and Plan 82 year old female 1. Acute on chronic systolic heart failure, complicated by chronic end stage renal disease -patient admitted to initiate chronic dialysis to aid with volume status. -Still receiving PO bumex intermittently. -plans to repeat dialysis today 2. Presumed ischemic cardiomyopathy with recent attempt at diagnostic cardiac cath was unable to be completed due to diffuse vascular disease 3. Paroxysmal atrial fib, currently maintaining NSR. On amiodarone. On Eliquis. Prolonged QT stable. Monitor. 4. Hypotension and bradycardia - metoprolol succinate reduced from 50 mg BID to 25 mg BID with change to holding parameters. -improved with reduction in beta jess. Case discussed with Dr. De La Rosa. Will follow. Patient seen and examined, better tolerance of dialysis today. No arrhythmias will continue current meds but reduce amiodarone to 100mg per day on discharge Justo De La Rosa md Laboratory Results Last 24 Hours Test 06/13/17 06:03 White Blood Count 8.83 K/uL Red Blood Count 3.19 M/uL Hemoglobin 8.9 g/dL Hematocrit 29.7 % Mean Corpuscular Volume 93.1 fL Mean Corpuscular Hemoglobin 27.9 pg Mean Corpuscular Hemoglobin Concent 30.0 g/dl RDW Standard Deviation 79.3 fL RDW Coefficient of Variation 23.7 % Platelet Count 200 K/uL Mean Platelet Volume 11.0 fL Nucleated RBC Absolute Count (auto) 0.27 K/uL Nucleated Red Blood Cells % 3.0 % Sodium Level 132 mmol/L Potassium Level 4.3 mmol/L Chloride Level 101 mmol/L Carbon Dioxide Level 25 mmol/L Anion Gap 6.0 mmol/L Blood Urea Nitrogen 14 mg/dl Creatinine 1.90 mg/dl Est Creatinine Clear Calc Drug Dose 18.5 ml/min Estimated GFR () 28.2 Estimated GFR (Non- 24.3 BUN/Creatinine Ratio 7.5 Random Glucose 88 mg/dl Calcium Level 8.4 mg/dl Magnesium Level 2.1 mg/dl
--- NOTE | 2017-06-13 13:50 | Dialysis Progress Note ---
Nephrology Dialysis Note Date of Service: Jun 13, 2017. Subjective 82 yo female with recalcitrant volume overload requiring dialysis. removing about a liter with each dialysis treatment. continues to have nausea and did have dry heaves this morning after eating dry cheerios. last night, pt had significant sob. seen on dialysis today. Objective Date Time Temp Pulse Resp B/P (MAP) Pulse Ox O2 Delivery O2 Flow Rate FiO2 06/13/17 13:30 61 120/72 06/13/17 13:17 61 113/72 06/13/17 13:05 61 108/60 06/13/17 12:45 61 110/54 06/13/17 12:30 62 107/66 06/13/17 12:15 63 125/74 06/13/17 12:06 60 121/70 06/13/17 12:00 Room Air 06/13/17 11:55 36.6 63 113/66 (82) 06/13/17 11:05 36.5 61 16 96/66 (76) 96 Nasal Cannula 1.0 06/13/17 08:00 Room Air 06/13/17 07:43 36.5 61 18 91/67 (75) 94 Room Air 06/13/17 04:15 Nasal Cannula 1.0 06/13/17 03:17 36.5 54 18 110/75 (87) 98 06/13/17 00:30 Nasal Cannula 1.0 06/13/17 00:10 36.3 57 16 105/66 (79) 95 06/12/17 20:45 36.3 73 20 92/61 (71) 88 Room Air 06/12/17 20:00 Room Air 06/12/17 16:27 36.8 60 20 94/63 (73) 98 Nasal Cannula 1.0 06/12/17 16:00 98 Nasal Cannula 1.0 Physical Exam: General-aaox3 Eyes-no scleral icterus ENT-mmm Neck-supple Lungs-decreased breath sounds at right base which appear better Heart-regular Abdomen-bs+ s/nt/nd Extremities-no c/c/e Neuro-nonfocal Current Inpatient Medications Medications (Trade) Dose Ordered Sig/Lashae Route Start Time Stop Time Status Last Admin Dose Admin Acetaminophen (Tylenol Tab) 650 mg Q4H PRN PO 06/10/17 18:30 07/10/17 18:29 06/12/17 08:08 650 MG Al Hydrox/Mg Hydrox/Simethicone (Maalox Max Susp) 15 ml Q4H PRN PO 06/10/17 18:30 07/10/17 18:29 Ondansetron HCl (Zofran Inj) 4 mg Q6H PRN IV 06/10/17 18:30 07/10/17 18:29 06/13/17 07:40 4 MG Nitroglycerin (Nitrostat Tab) 0.4 mg UD PRN SL 06/10/17 18:30 07/10/17 18:29 Polyethylene (Miralax Powder Packet) 17 gm DAILY PRN PO 06/10/17 18:30 07/10/17 18:29 06/11/17 13:37 17 GM Docusate Sodium (coLACE CAP) 100 mg BID PRN PO 06/10/17 18:30 07/10/17 18:29 06/12/17 08:08 100 MG Oxycodone HCl (Roxicodone Immediate Rel Tab) 5 mg Q4 PRN PO 06/10/17 18:30 06/24/17 18:29 06/10/17 22:19 5 MG Bumetanide (Bumex Tab) 2 mg BID17 PO 06/11/17 09:00 07/11/17 08:59 06/12/17 17:07 2 MG Potassium Chloride (Klor-Con Tab) 20 meq QAM PO 06/11/17 09:00 07/11/17 08:59 06/13/17 09:08 20 MEQ Multivitamins/ Minerals (Multivitamin W/ Minerals Tab) 1 tab QAM PO 06/11/17 09:00 07/11/17 08:59 06/13/17 09:07 1 TAB Ferrous Sulfate (Feosol Tab) 325 mg BIDM PO 06/11/17 07:30 07/11/17 07:29 06/13/17 09:07 325 MG Cholecalciferol (Vitamin D Tab) 5,000 inter.unit QAM PO 06/11/17 09:00 07/11/17 08:59 06/13/17 09:07 5,000 INTER.UNIT Levothyroxine Sodium (Synthroid Tab) 112 mcg DAILYBB PO 06/11/17 06:00 07/11/17 05:59 06/13/17 05:31 112 MCG Amiodarone HCl (Cordarone Tab) 200 mg QAM PO 06/11/17 09:00 07/11/17 08:59 06/13/17 09:07 200 MG Atorvastatin Calcium (Lipitor Tab) 80 mg QAM PO 06/11/17 09:00 07/11/17 08:59 06/13/17 09:07 80 MG Apixaban (Eliquis Tab) 2.5 mg BID PO 06/10/17 21:00 07/10/17 20:59 06/13/17 09:07 2.5 MG Pyridoxine HCl (Vitamin B-6 Tab) 50 mg QAM PO 06/11/17 09:00 07/11/17 08:59 06/13/17 09:07 50 MG Calcitriol (Rocaltrol Cap) 0.25 mcg QAM PO 06/11/17 09:00 07/11/17 08:59 06/13/17 09:07 0.25 MCG Ropinirole HCl (Requip Tab) 0.5 mg HS PO 06/10/17 21:00 07/10/17 20:59 06/12/17 20:50 0.5 MG Aspirin (Ecotrin Tab) 81 mg QAM PO 06/11/17 09:00 07/11/17 08:59 06/13/17 09:07 81 MG Metoprolol Succinate (Toprol Xl Tab) 25 mg BID PO 06/12/17 21:00 07/10/17 20:59 06/12/17 20:49 25 MG Albumin Human (Albumin 25%) 25 gm TODAY@1000 IV 06/13/17 10:00 06/13/17 23:59 06/13/17 12:40 25 GM Iron Sucrose 100 mg/Syringe 5 ml @ 1 mls/min TODAY@1000 IV 06/13/17 10:00 06/13/17 23:59 06/13/17 12:40 1 MLS/MIN Last 24 Hours Test 06/13/17 06:03 White Blood Count 8.83 K/uL Red Blood Count 3.19 M/uL Hemoglobin 8.9 g/dL Hematocrit 29.7 % Mean Corpuscular Volume 93.1 fL Mean Corpuscular Hemoglobin 27.9 pg Mean Corpuscular Hemoglobin Concent 30.0 g/dl RDW Standard Deviation 79.3 fL RDW Coefficient of Variation 23.7 % Platelet Count 200 K/uL Mean Platelet Volume 11.0 fL Nucleated RBC Absolute Count (auto) 0.27 K/uL Nucleated Red Blood Cells % 3.0 % Sodium Level 132 mmol/L Potassium Level 4.3 mmol/L Chloride Level 101 mmol/L Carbon Dioxide Level 25 mmol/L Anion Gap 6.0 mmol/L Blood Urea Nitrogen 14 mg/dl Creatinine 1.90 mg/dl Est Creatinine Clear Calc Drug Dose 18.5 ml/min Estimated GFR () 28.2 Estimated GFR (Non- 24.3 BUN/Creatinine Ratio 7.5 Random Glucose 88 mg/dl Calcium Level 8.4 mg/dl Magnesium Level 2.1 mg/dl Assessment & Plan CKD stage 4 who has now progressed to ESRD secondary to volume overload issues. seen on dialysis today. bp is very good today. using albumin to help optimize fluid removal. will plan on dialysis again tomorrow. hoping with dialysis to help optimize her pulmonary function. Anemia-has significant iron deficiency and giving iv venofer yesterday and again today. hg of 8.9.
[2017-06-13] MEDS: ROPINIROLE HCL 0.25 MG TAB PO SCH (20:52)
[2017-06-14] VITALS (19 sets, daily range): BP systolic 100–118; BP diastolic 61–76; PULSE 60–80; TEMP 36.3–36.9; O2SAT 93–97
[2017-06-14] MEDS: LEVOTHYROXINE 112 MCG TAB PO SCH (05:48)
[2017-06-14 06:13] LABS: HEMATOCRIT 28.3 % (37-47); HEMOGLOBIN 8.7 g/dL (12.0-16.0)
[2017-06-14 06:51] LABS: CALCIUM 8.6 mg/dl (8.5-10.1); CREATININE 1.95 mg/dl (0.60-1.20); POTASSIUM 3.9 mmol/L (3.5-5.1)
[2017-06-14] MEDS ORDERED: IRON SUCROSE INJ 100 MG in SYRINGE 0 ML IV SCH (07:00)
--- NOTE | 2017-06-14 07:13 | Nephrology Progress Note ---
Nephrology Progress Note Date of Service: Jun 14, 2017. Subjective 82 yo female with recalcitrant volume overload requiring dialysis. breathing better this morning. continues to have intermittent nausea but overall feeling better. Objective Date Time Temp Pulse Resp B/P (MAP) Pulse Ox O2 Delivery O2 Flow Rate FiO2 06/14/17 04:20 36.6 60 20 103/61 (75) 97 Nasal Cannula 1.0 06/14/17 04:03 Nasal Cannula 1.0 06/14/17 00:10 Nasal Cannula 1.0 06/13/17 23:16 36.3 58 20 99/60 (73) 97 Nasal Cannula 1.0 06/13/17 20:15 37.0 59 16 85/43 (57) 95 Nasal Cannula 06/13/17 20:00 95 Nasal Cannula 1.0 06/13/17 16:00 97 Nasal Cannula 1.0 06/13/17 15:54 36.8 66 16 94/57 (69) 97 Nasal Cannula 06/13/17 15:04 36.5 63 124/73 (90) 06/13/17 15:03 63 116/71 06/13/17 14:45 62 110/69 06/13/17 14:30 61 116/72 06/13/17 14:17 63 121/73 06/13/17 14:00 61 121/70 06/13/17 13:45 64 118/65 06/13/17 13:30 61 120/72 06/13/17 13:17 61 113/72 06/13/17 13:05 61 108/60 06/13/17 12:45 61 110/54 06/13/17 12:30 62 107/66 06/13/17 12:15 63 125/74 06/13/17 12:06 60 121/70 06/13/17 12:00 Room Air 06/13/17 11:55 36.6 63 113/66 (82) 06/13/17 11:05 36.5 61 16 96/66 (76) 96 Nasal Cannula 1.0 06/13/17 08:00 Room Air 06/13/17 07:43 36.5 61 18 91/67 (75) 94 Room Air Physical Exam: General-aaox3 Eyes-no scleral icterus ENT-mmm Neck-supple Lungs-more clear Heart-regular Abdomen-bs+ s/nt/nd Extremities-no c/c/e, left arm with significant swelling and bruising Neuro-nonfocal Current Inpatient Medications Medications (Trade) Dose Ordered Sig/Lashae Route Start Time Stop Time Status Last Admin Dose Admin Acetaminophen (Tylenol Tab) 650 mg Q4H PRN PO 06/10/17 18:30 07/10/17 18:29 06/12/17 08:08 650 MG Al Hydrox/Mg Hydrox/Simethicone (Maalox Max Susp) 15 ml Q4H PRN PO 06/10/17 18:30 07/10/17 18:29 Ondansetron HCl (Zofran Inj) 4 mg Q6H PRN IV 06/10/17 18:30 07/10/17 18:29 06/13/17 07:40 4 MG Nitroglycerin (Nitrostat Tab) 0.4 mg UD PRN SL 06/10/17 18:30 07/10/17 18:29 Polyethylene (Miralax Powder Packet) 17 gm DAILY PRN PO 06/10/17 18:30 07/10/17 18:29 06/11/17 13:37 17 GM Docusate Sodium (coLACE CAP) 100 mg BID PRN PO 06/10/17 18:30 07/10/17 18:29 06/12/17 08:08 100 MG Oxycodone HCl (Roxicodone Immediate Rel Tab) 5 mg Q4 PRN PO 06/10/17 18:30 06/24/17 18:29 06/10/17 22:19 5 MG Bumetanide (Bumex Tab) 2 mg BID17 PO 06/11/17 09:00 07/11/17 08:59 06/13/17 16:31 2 MG Potassium Chloride (Klor-Con Tab) 20 meq QAM PO 06/11/17 09:00 07/11/17 08:59 06/13/17 09:08 20 MEQ Multivitamins/ Minerals (Multivitamin W/ Minerals Tab) 1 tab QAM PO 06/11/17 09:00 07/11/17 08:59 06/13/17 09:07 1 TAB Ferrous Sulfate (Feosol Tab) 325 mg BIDM PO 06/11/17 07:30 07/11/17 07:29 06/13/17 16:31 325 MG Cholecalciferol (Vitamin D Tab) 5,000 inter.unit QAM PO 06/11/17 09:00 07/11/17 08:59 06/13/17 09:07 5,000 INTER.UNIT Levothyroxine Sodium (Synthroid Tab) 112 mcg DAILYBB PO 06/11/17 06:00 07/11/17 05:59 06/14/17 05:48 112 MCG Amiodarone HCl (Cordarone Tab) 200 mg QAM PO 06/11/17 09:00 07/11/17 08:59 06/13/17 09:07 200 MG Atorvastatin Calcium (Lipitor Tab) 80 mg QAM PO 06/11/17 09:00 07/11/17 08:59 06/13/17 09:07 80 MG Apixaban (Eliquis Tab) 2.5 mg BID PO 06/10/17 21:00 07/10/17 20:59 06/13/17 20:51 2.5 MG Pyridoxine HCl (Vitamin B-6 Tab) 50 mg QAM PO 06/11/17 09:00 07/11/17 08:59 06/13/17 09:07 50 MG Calcitriol (Rocaltrol Cap) 0.25 mcg QAM PO 06/11/17 09:00 07/11/17 08:59 06/13/17 09:07 0.25 MCG Ropinirole HCl (Requip Tab) 0.5 mg HS PO 06/10/17 21:00 07/10/17 20:59 06/13/17 20:52 0.5 MG Aspirin (Ecotrin Tab) 81 mg QAM PO 06/11/17 09:00 07/11/17 08:59 06/13/17 09:07 81 MG Metoprolol Succinate (Toprol Xl Tab) 25 mg BID PO 06/12/17 21:00 07/10/17 20:59 06/12/17 20:49 25 MG Iron Sucrose 100 mg/Syringe 5 ml @ 1 mls/min TODAY@0700 IV 06/14/17 07:00 06/14/17 23:59 Albumin Human (Albumin 25%) 25 gm TODAY@0600 IV 06/14/17 06:00 06/14/17 23:59 Last 24 Hours Test 06/14/17 06:02 Hemoglobin 8.7 g/dL Hematocrit 28.3 % Sodium Level 135 mmol/L Potassium Level 3.9 mmol/L Chloride Level 101 mmol/L Carbon Dioxide Level 29 mmol/L Anion Gap 5.0 mmol/L Blood Urea Nitrogen 11 mg/dl Creatinine 1.95 mg/dl Est Creatinine Clear Calc Drug Dose 17.7 ml/min Estimated GFR () 27.3 Estimated GFR (Non- 23.5 BUN/Creatinine Ratio 5.7 Random Glucose 81 mg/dl Calcium Level 8.6 mg/dl Assessment & Plan ESRD-for dialysis again today with albumin. trying to optimize lung function and improve volume status as bp tolerates. Anemia-has significant iron deficiency and giving iv venofer on dialysis to help improve hg levels. Access: pt with fistula recently placed, hard to hear bruit or thrill although significant swelling in arm. would like to obtain us of the vascular access to better assess the situation. may not be viable. for now, use the tunneled line.
[2017-06-14] MEDS: CEROVITE ADV FORMULA TAB PO SCH (08:42)
[2017-06-14] MEDS: CHOLECALCIFEROL 1000 INTER.UNIT TAB PO SCH (08:43)
[2017-06-14] MEDS: FERROUS SULFATE 325 MG TAB PO SCH ×2 (08:43→18:00)
[2017-06-14] MEDS: ASPIRIN 81 MG ECTAB PO SCH (08:43)
[2017-06-14] MEDS: ATORVASTATIN 40 MG TAB PO SCH (08:43)
[2017-06-14] MEDS: APIXABAN 2.5 MG TAB PO SCH ×2 (08:44→21:22)
[2017-06-14] MEDS: CALCITRIOL 0.25 MCG CAP PO SCH (08:44)
[2017-06-14] MEDS: PYRIDOXINE HCL 50 MG TAB PO SCH (08:44)
[2017-06-14] MEDS: BUMETANIDE 1 MG TAB PO SCH ×2 (08:44→18:00)
[2017-06-14] MEDS: METOPROLOL SUCC 25MG EXT REL TAB PO SCH ×2 (08:44→21:22)
[2017-06-14] MEDS: POTASSIUM CHLORIDE 20 MEQ TABCR PO SCH (08:44)
[2017-06-14] MEDS: AMIODARONE 200 MG TAB PO SCH (08:45)
[2017-06-14] MEDS: ALBUMIN HUMAN 25% 12.5 GM/50 ML VIAL IV SCH ×2 (10:25→11:28)
--- NOTE | 2017-06-14 12:12 | Cardiology Follow-Up ---
Subjective General Date of Service: Jun 14, 2017. Chief Complaint: SOB Pt evaluation today including: conversation w/ patient, physical exam, chart review, lab review, review of studies, review of inpatient medication list History of Present Illness Patient feeling better this AM. Less SOB. Cough improving. Denies chest pain. No dizziness. Tolerating dialysis. BP improved. Chronic orthopnea noted. No edema. Allergies Coded Allergies: Penicillins (Verified Allergy, Intermediate, ARM EDEMA, 06/10/17) Social History Smoking Status: Former Smoker Hx Tobacco Use In Past Year?: No Hx Alcohol Use - Type And Amou: No Hx Substance Use - Type And Am: No Review of Systems Respiratory: + shortness of breath, + dyspnea on exertion, No cough, No sputum , No wheezing, No dyspnea at rest Cardiac: + orthopnea, No chest pain, No PND, No edema, No palpitations Physical Exam Vital Signs Last Vital Signs Documentation Date Time Temp Pulse Resp B/P (MAP) Pulse Ox O2 Delivery O2 Flow Rate FiO2 06/14/17 11:30 69 111/72 06/14/17 09:50 36.5 06/14/17 08:00 Nasal Cannula 1.0 06/14/17 07:21 20 97 Physical Exam Constitutional: General Apperance: cachectic Level of Distress: NAD, acutely ill, chronically ill Psychiatric: Mental Status: active & alert Orientation: to time, to place, to person Head: normocephalic Eyes: Pupils: PERRLA Neck: supple Lungs: Auscultation: deminished air movement, wet rales/crackles Cardiovascular: Heart Auscultation: RRR, no murmurs Abdomen: Bowel Sounds: normal Inspection & Palpation: soft Extremities: no edema Assessment and Plan Assessment and Plan 82 year old female 1. Acute on chronic systolic heart failure, complicated by chronic end stage renal disease -patient admitted to initiate chronic dialysis to aid with volume status. -Still receiving PO bumex intermittently. -plans to repeat dialysis today 2. Presumed ischemic cardiomyopathy with recent attempt at diagnostic cardiac cath was unable to be completed due to diffuse vascular disease 3. Paroxysmal atrial fib, currently maintaining NSR. On amiodarone. On Eliquis. Prolonged QT stable. Monitor. 4. Hypotension and bradycardia - metoprolol succinate reduced from 50 mg BID to 25 mg BID with change to holding parameters. -improved with reduction in beta jess. Cardiac signs/symptoms improving. Continue current medications. Will sign off. Please notify iron setter provider with any additional questions or concerns. Case discussed with Dr. Florez. Laboratory Results Last 24 Hours Test 06/14/17 06:02 Hemoglobin 8.7 g/dL Hematocrit 28.3 % Sodium Level 135 mmol/L Potassium Level 3.9 mmol/L Chloride Level 101 mmol/L Carbon Dioxide Level 29 mmol/L Anion Gap 5.0 mmol/L Blood Urea Nitrogen 11 mg/dl Creatinine 1.95 mg/dl Est Creatinine Clear Calc Drug Dose 17.7 ml/min Estimated GFR () 27.3 Estimated GFR (Non- 23.5 BUN/Creatinine Ratio 5.7 Random Glucose 81 mg/dl Calcium Level 8.6 mg/dl
--- NOTE | 2017-06-14 16:46 | Progress Note ---
Internal Med Progress Note Date of Service: Jun 14, 2017. Provider Documentation: SUBJECTIVE: Seen and examined at bedside Feels today Got dialysis today LUE pain at the AV fistula site better Denies chest pain, SOB, dizziness No other complaints Family at bedside OBJECTIVE: Vital Signs-as noted below Physical Exam: General Appearance:Moderately built and nourished, no apparent distress Head: normocephalic, Atraumatic Eyes: normal inspection, EOMI, PERRL Neck: supple, Trachea midline Respiratory/Chest: Normal breath sounds, Basal Rales Cardiovascular: S1, S2, No murmur Abdomen/GI:Soft, Non tender, Bowel sounds present Extremities/Musculoskelatal:normal inspection, Trace edema , LUE ecchymosis, AV fistula Neurologic/Psych:AAOX3, grossly no focal neurological deficits Skin: normal color, warm Lab data as noted below. ASSESSMENT & PLAN: Patient is an 82-year-old female who presents with not feeling well and requiring dialysis. Patient is a direct admit on recommendations from Nephrology for reinitiation of Dialysis Chronic ESRD: Volume overload status: Dialysis as per Nephrology Continue Bumex 2 mg b.i.d, potassium chloride 20 mEq daily Monitor electrolytes Appreciate Nephrology help Needs outpatient dialysis set up prior to discharge Dialysis per Nephrology Left Upper Extremity Hematoma: At AV fistula site Likely present prior to admission Venous Doppler:No definite patent fistula identified. Large complex lesion of the left arm superficial to the brachial artery measures up to 6.1 cm suggesting hematoma. Patent brachial artery. Will discuss with Vascular Surgery Hb stable H/O atrial fibrillation: Sinus Bradycardia Rate controlled Continue amiodarone 200 mg daily Metoprolol dose decreased to 25mg BID secondary to bradycardia On Eliquis for anticoagulation Appreciate Cardiology Input HTN: Stable Continue diuretics, BB HLP: Continue statin. Hypothyroidism: Continue Synthroid Restless legs syndrome: Continue Requip H/O chronic combined systolic and diastolic heart failure: on Bumex Also volume status being managed through dialysis PVD Presumed Ischemic Heart disease Non specific ST-T wave changes Could not get cardiac cath in the past secondary to severe PVD Denies chest pain Continue ASA, stains, BB GERD: Continue PPI Anemia OF chronic kidney disease: continue Iron supplements Received IV Venofer DVT Px: On eliquis Code Status: Full code Disposition: PT/OT Social service consulted Vital Signs: Date Time Temp Pulse Resp B/P (MAP) Pulse Ox O2 Delivery O2 Flow Rate FiO2 06/14/17 16:14 36.7 72 18 100/68 (79) 93 Nasal Cannula 1.0 06/14/17 16:00 93 Nasal Cannula 1.0 06/14/17 13:25 36.9 74 16 112/74 (87) 96 Room Air 1.0 06/14/17 12:40 36.6 69 114/74 (87) 06/14/17 12:30 70 108/72 06/14/17 12:15 71 106/71 06/14/17 12:00 70 110/69 06/14/17 11:45 71 110/70 06/14/17 11:30 69 111/72 06/14/17 11:15 68 108/72 06/14/17 11:00 69 107/71 06/14/17 10:45 68 102/64 06/14/17 10:30 66 101/66 06/14/17 10:15 66 101/67 06/14/17 10:00 65 110/71 06/14/17 09:50 36.5 67 100/69 (79) 06/14/17 08:00 Nasal Cannula 1.0 06/14/17 07:21 36.9 64 20 118/76 (90) 97 Nasal Cannula 1.0 06/14/17 04:20 36.6 60 20 103/61 (75) 97 Nasal Cannula 1.0 06/14/17 04:03 Nasal Cannula 1.0 06/14/17 00:10 Nasal Cannula 1.0 06/13/17 23:16 36.3 58 20 99/60 (73) 97 Nasal Cannula 1.0 06/13/17 20:15 37.0 59 16 85/43 (57) 95 Nasal Cannula 06/13/17 20:00 95 Nasal Cannula 1.0 Lab Results: Results Past 24 Hours Test 06/14/17 06:02 Range/Units Hemoglobin 8.7 12.0-16.0 g/dL Hematocrit 28.3 37-47 % Sodium Level 135 136-145 mmol/L Potassium Level 3.9 3.5-5.1 mmol/L Chloride Level 101 98-107 mmol/L Carbon Dioxide Level 29 21-32 mmol/L Anion Gap 5.0 3-11 mmol/L Blood Urea Nitrogen 11 7-18 mg/dl Creatinine 1.95 0.60-1.20 mg/dl Est Creatinine Clear Calc Drug Dose 17.7 ml/min Estimated GFR () 27.3 Estimated GFR (Non- 23.5 BUN/Creatinine Ratio 5.7 10-20 Random Glucose 81 70-99 mg/dl Calcium Level 8.6 8.5-10.1 mg/dl
--- NOTE | 2017-06-14 18:44 | DIAGNOSTIC IMAGING REPORT ---
DUPLEX HEMODIALYSIS ACCESS HISTORY: 82 years-old Female no bruit or thrill end-stage renal disease with recent placement of a fistula within the left arm. Patient now presents with left arm swelling. COMPARISON: None available TECHNIQUE: Multiple real-time sonographic images of the left upper extremity vascular structures were obtained assessing grayscale appearance, color and spectral flow FINDINGS: The brachial artery is patent with normal phasic waveforms and normal velocities. Peak systolic velocity of the brachial artery measures 72 cm/s with triphasic waveforms. There is a heterogeneous ovoid complex lesion of the arm measuring 6.1 x 2.5 x 4.7 cm nicely seen on images 8 and 9 suggesting a hematoma superficial to the brachial artery. The radial and ulnar arteries are patent. Portions of the visualized basilic vein appear patent proximal to the large complex lesion as above. Visualized brachial vein also appears patent. No definite patent fistula identified. IMPRESSION: 1. No definite patent fistula identified. 2. Large complex lesion of the left arm superficial to the brachial artery measures up to 6.1 cm suggesting hematoma. 3. Patent brachial artery. The above report was generated using voice recognition software. It may contain grammatical, syntax or spelling errors. Electronically signed by: Fausto Copeland M.D. 06/14/2017 6:43 PM Dictated Date/Time: 06/14/2017 6:36 PM
[2017-06-14] MEDS: ROPINIROLE HCL 0.25 MG TAB PO SCH (21:22)
[2017-06-15] VITALS (20 sets, daily range): BP systolic 89–119; BP diastolic 56–74; PULSE 62–72; TEMP 36.3–36.9; O2SAT 94–97
[2017-06-15] MEDS: LEVOTHYROXINE 112 MCG TAB PO SCH (05:45)
[2017-06-15 06:56] LABS: HEMATOCRIT 28.6 % (37-47); HEMOGLOBIN 8.4 g/dL (12.0-16.0)
[2017-06-15 07:32] LABS: CREATININE 1.74 mg/dl (0.60-1.20)
[2017-06-15] MEDS: FERROUS SULFATE 325 MG TAB PO SCH ×2 (07:46→16:35)
[2017-06-15] MEDS: CEROVITE ADV FORMULA TAB PO SCH (07:46)
[2017-06-15] MEDS: ASPIRIN 81 MG ECTAB PO SCH ×2 (07:46→08:22)
[2017-06-15] MEDS: ATORVASTATIN 40 MG TAB PO SCH (07:47)
[2017-06-15] MEDS: CHOLECALCIFEROL 1000 INTER.UNIT TAB PO SCH (07:47)
[2017-06-15] MEDS: PYRIDOXINE HCL 50 MG TAB PO SCH (07:47)
[2017-06-15] MEDS: CALCITRIOL 0.25 MCG CAP PO SCH (07:47)
[2017-06-15] MEDS: POTASSIUM CHLORIDE 20 MEQ TABCR PO SCH (07:48)
[2017-06-15] MEDS: APIXABAN 2.5 MG TAB PO SCH ×3 (07:49→20:20)
[2017-06-15] MEDS: AMIODARONE 200 MG TAB PO SCH (07:49)
[2017-06-15] MEDS: BUMETANIDE 1 MG TAB PO SCH ×2 (09:00→16:36)
[2017-06-15] MEDS: METOPROLOL SUCC 25MG EXT REL TAB PO SCH ×2 (09:00→20:20)
--- NOTE | 2017-06-15 09:31 | Progress Note ---
Internal Med Progress Note Date of Service: Jun 15, 2017. Provider Documentation: SUBJECTIVE: Seen and examined at bedside Planned to get dialysis today LUE pain and swelling at the AV fistula site improving Denies chest pain, SOB, dizziness No other complaints OBJECTIVE: Vital Signs-as noted below Physical Exam: General Appearance:Moderately built and nourished, no apparent distress Head: normocephalic, Atraumatic Eyes: normal inspection, EOMI, PERRL Neck: supple, Trachea midline Respiratory/Chest: Decreased breath sounds, Basal Rales Cardiovascular: S1, S2, No murmur Abdomen/GI:Soft, Non tender, Bowel sounds present Extremities/Musculoskelatal:normal inspection, Trace edema , LUE ecchymosis, swelling, AV fistula Neurologic/Psych:AAOX3, grossly no focal neurological deficits Skin: normal color, warm Lab data as noted below. ASSESSMENT & PLAN: Patient is an 82-year-old female who presents with not feeling well and requiring dialysis. Patient is a direct admit on recommendations from Nephrology for reinitiation of Dialysis Chronic ESRD: Volume overload status: Chronic Oxygen dependency: on 1L at baseline Dialysis as per Nephrology Continue Bumex 2 mg b.i.d, potassium chloride 20 mEq daily Monitor electrolytes Appreciate Nephrology help Needs outpatient dialysis set up prior to discharge Dialysis per Nephrology Left Upper Extremity Hematoma: At AV fistula site Likely present prior to admission (Patient reports swelling about 8 days ago and feels swelling has improved) Venous Doppler:No definite patent fistula identified. Large complex lesion of the left arm superficial to the brachial artery measures up to 6.1 cm suggesting hematoma. Patent brachial artery. Discussed with patient regarding hematoma and being on Aspirin and eliquis Given her comorbidities and Hb being stable, will continue Aspirin, Eliquis for now Patient agreed on current management and is aware of risk for bleeding Closely monitor Hemoglobin Will discuss with Vascular Surgery Will plan to hold eliquis/Aspirin starting tomorrow for possible vascular intervention H/O atrial fibrillation: Bradycardia improved with BB adjustment Rate controlled Continue amiodarone 200 mg daily Metoprolol dose decreased to 25mg BID secondary to bradycardia On Eliquis for anticoagulation Appreciate Cardiology Input HTN: Stable Continue diuretics, BB HLP: Continue statin. Hypothyroidism: Continue Synthroid Restless legs syndrome: Continue Requip H/O chronic combined systolic and diastolic heart failure: on Bumex Also volume status being managed through dialysis PVD Presumed Ischemic Heart disease Non specific ST-T wave changes Could not get cardiac cath in the past secondary to severe PVD Denies chest pain Continue ASA, stains, BB GERD: Continue PPI Anemia OF chronic kidney disease: continue Iron supplements Received IV Venofer DVT Px: On eliquis Code Status: Full code Disposition: PT/OT Social service consulted Vital Signs: Date Time Temp Pulse Resp B/P (MAP) Pulse Ox O2 Delivery O2 Flow Rate FiO2 06/15/17 08:00 Nasal Cannula 1.0 06/15/17 07:05 36.5 62 20 108/70 (83) 97 Nasal Cannula 1.0 06/15/17 04:00 Nasal Cannula 1.0 06/15/17 03:23 36.3 62 16 97/60 (72) 97 06/15/17 00:18 36.5 65 16 99/65 (76) 95 06/15/17 00:00 Nasal Cannula 1.0 06/14/17 20:00 Nasal Cannula 1.0 06/14/17 19:15 36.3 80 18 101/69 (80) 93 Room Air 06/14/17 16:14 36.7 72 18 100/68 (79) 93 Nasal Cannula 1.0 06/14/17 16:00 93 Nasal Cannula 1.0 06/14/17 13:25 36.9 74 16 112/74 (87) 96 Room Air 1.0 06/14/17 12:40 36.6 69 114/74 (87) 06/14/17 12:30 70 108/72 06/14/17 12:15 71 106/71 06/14/17 12:00 70 110/69 06/14/17 11:45 71 110/70 06/14/17 11:30 69 111/72 06/14/17 11:15 68 108/72 06/14/17 11:00 69 107/71 06/14/17 10:45 68 102/64 06/14/17 10:30 66 101/66 06/14/17 10:15 66 101/67 06/14/17 10:00 65 110/71 06/14/17 09:50 36.5 67 100/69 (79) Lab Results: Results Past 24 Hours Test 06/15/17 06:07 Range/Units Hemoglobin 8.4 12.0-16.0 g/dL Hematocrit 28.6 37-47 % Sodium Level 137 136-145 mmol/L Potassium Level 4.0 3.5-5.1 mmol/L Chloride Level 102 98-107 mmol/L Carbon Dioxide Level 27 21-32 mmol/L Anion Gap 8.0 3-11 mmol/L Blood Urea Nitrogen 10 7-18 mg/dl Creatinine 1.74 0.60-1.20 mg/dl Est Creatinine Clear Calc Drug Dose 20.0 ml/min Estimated GFR () 31.3 Estimated GFR (Non- 27.0 BUN/Creatinine Ratio 5.8 10-20 Random Glucose 85 70-99 mg/dl Calcium Level 9.0 8.5-10.1 mg/dl
[2017-06-15] MEDS ORDERED: IRON SUCROSE INJ 100 MG in SYRINGE 0 ML IV SCH (10:00)
[2017-06-15] MEDS: ALBUMIN HUMAN 25% 12.5 GM/50 ML VIAL IV SCH ×2 (12:03→12:59)
--- NOTE | 2017-06-15 14:34 | Dialysis Progress Note ---
Nephrology Dialysis Note Date of Service: Jun 15, 2017. Subjective seen on rounds at 1410. 6th dialysis tx in a row; for another 1L UF; tolerating well so far. feels breathing at baseline (on 1L 02NC chronically ); no pain; no n/v/edema except LUE Objective Date Time Temp Pulse Resp B/P (MAP) Pulse Ox O2 Delivery O2 Flow Rate FiO2 06/15/17 14:15 70 111/68 06/15/17 14:00 71 106/65 06/15/17 13:45 70 112/69 06/15/17 13:30 69 109/71 06/15/17 13:15 69 102/65 06/15/17 13:00 68 111/64 06/15/17 12:45 68 106/67 06/15/17 12:30 67 101/68 06/15/17 12:15 67 103/67 06/15/17 12:00 68 105/65 06/15/17 11:49 36.9 72 108/69 (82) 06/15/17 11:40 Nasal Cannula 1.0 06/15/17 08:00 Nasal Cannula 1.0 06/15/17 07:05 36.5 62 20 108/70 (83) 97 Nasal Cannula 1.0 06/15/17 04:00 Nasal Cannula 1.0 06/15/17 03:23 36.3 62 16 97/60 (72) 97 06/15/17 00:18 36.5 65 16 99/65 (76) 95 06/15/17 00:00 Nasal Cannula 1.0 06/14/17 20:00 Nasal Cannula 1.0 06/14/17 19:15 36.3 80 18 101/69 (80) 93 Room Air 06/14/17 16:14 36.7 72 18 100/68 (79) 93 Nasal Cannula 1.0 06/14/17 16:00 93 Nasal Cannula 1.0 Physical Exam: General-aaox3, on 1L 02NC Eyes-no scleral icterus ENT-mmm Neck-supple Lungs-diminished but somewhat clear Heart-regular RR Abdomen-bs+ s/nt/nd Extremities-no c/c/e, left arm with extensive swelling and bruising, avf w/o t/b Neuro-tao, fluent speech Current Inpatient Medications Medications (Trade) Dose Ordered Sig/Lashae Route Start Time Stop Time Status Last Admin Dose Admin Acetaminophen (Tylenol Tab) 650 mg Q4H PRN PO 06/10/17 18:30 07/10/17 18:29 06/12/17 08:08 650 MG Al Hydrox/Mg Hydrox/Simethicone (Maalox Max Susp) 15 ml Q4H PRN PO 06/10/17 18:30 07/10/17 18:29 Ondansetron HCl (Zofran Inj) 4 mg Q6H PRN IV 06/10/17 18:30 07/10/17 18:29 06/13/17 07:40 4 MG Nitroglycerin (Nitrostat Tab) 0.4 mg UD PRN SL 06/10/17 18:30 07/10/17 18:29 Polyethylene (Miralax Powder Packet) 17 gm DAILY PRN PO 06/10/17 18:30 07/10/17 18:29 06/11/17 13:37 17 GM Docusate Sodium (coLACE CAP) 100 mg BID PRN PO 06/10/17 18:30 07/10/17 18:29 06/12/17 08:08 100 MG Oxycodone HCl (Roxicodone Immediate Rel Tab) 5 mg Q4 PRN PO 06/10/17 18:30 06/24/17 18:29 06/10/17 22:19 5 MG Bumetanide (Bumex Tab) 2 mg BID17 PO 06/11/17 09:00 07/11/17 08:59 06/14/17 18:00 2 MG Potassium Chloride (Klor-Con Tab) 20 meq QAM PO 06/11/17 09:00 07/11/17 08:59 06/15/17 07:48 20 MEQ Multivitamins/ Minerals (Multivitamin W/ Minerals Tab) 1 tab QAM PO 06/11/17 09:00 07/11/17 08:59 06/15/17 07:46 1 TAB Ferrous Sulfate (Feosol Tab) 325 mg BIDM PO 06/11/17 07:30 07/11/17 07:29 06/15/17 07:46 325 MG Cholecalciferol (Vitamin D Tab) 5,000 inter.unit QAM PO 06/11/17 09:00 07/11/17 08:59 06/15/17 07:47 5,000 INTER.UNIT Levothyroxine Sodium (Synthroid Tab) 112 mcg DAILYBB PO 06/11/17 06:00 07/11/17 05:59 06/15/17 05:45 112 MCG Amiodarone HCl (Cordarone Tab) 200 mg QAM PO 06/11/17 09:00 07/11/17 08:59 06/15/17 07:49 200 MG Atorvastatin Calcium (Lipitor Tab) 80 mg QAM PO 06/11/17 09:00 07/11/17 08:59 06/15/17 07:47 80 MG Apixaban (Eliquis Tab) 2.5 mg BID PO 06/10/17 21:00 07/10/17 20:59 06/15/17 08:22 2.5 MG Pyridoxine HCl (Vitamin B-6 Tab) 50 mg QAM PO 06/11/17 09:00 07/11/17 08:59 06/15/17 07:47 50 MG Calcitriol (Rocaltrol Cap) 0.25 mcg QAM PO 06/11/17 09:00 07/11/17 08:59 06/15/17 07:47 0.25 MCG Ropinirole HCl (Requip Tab) 0.5 mg HS PO 06/10/17 21:00 07/10/17 20:59 06/14/17 21:22 0.5 MG Aspirin (Ecotrin Tab) 81 mg QAM PO 06/11/17 09:00 07/11/17 08:59 06/15/17 08:22 81 MG Metoprolol Succinate (Toprol Xl Tab) 25 mg BID PO 06/12/17 21:00 07/10/17 20:59 06/14/17 21:22 25 MG Iron Sucrose 100 mg/Syringe 5 ml @ 1 mls/min TODAY@1000 IV 06/15/17 10:00 06/15/17 18:00 06/15/17 14:17 1 MLS/MIN Albumin Human (Albumin 25%) 12.5 gm 0800,0900 IV 06/15/17 08:00 06/15/17 18:00 06/15/17 12:59 12.5 GM Last 24 Hours Test 06/15/17 06:07 Hemoglobin 8.4 g/dL Hematocrit 28.6 % Sodium Level 137 mmol/L Potassium Level 4.0 mmol/L Chloride Level 102 mmol/L Carbon Dioxide Level 27 mmol/L Anion Gap 8.0 mmol/L Blood Urea Nitrogen 10 mg/dl Creatinine 1.74 mg/dl Est Creatinine Clear Calc Drug Dose 20.0 ml/min Estimated GFR () 31.3 Estimated GFR (Non- 27.0 BUN/Creatinine Ratio 5.8 Random Glucose 85 mg/dl Calcium Level 9.0 mg/dl Assessment & Plan 82 yo female with recalcitrant volume overload requiring daily dialysis and new AVF w/o t/b ESRD-for dialysis again today with albumin. trying to optimize lung function and improve volume status as bp tolerates. plan next HD tentatively for 06/17 Anemia-has significant iron deficiency and giving iv venofer on dialysis to help improve hg levels. will give epo w/ next tx Access: pt with fistula recently placed at [facility], hard to hear bruit or thrill although significant swelling in arm. u/s of vasc access shows no patency and 6 cm perifistular hematoma; will formally consult vascular on 06/17 (dr Moore already aware). use [facility] for HD access.
[2017-06-15 16:07] LABS: HEMATOCRIT 29.7 % (37-47); HEMOGLOBIN 8.8 g/dL (12.0-16.0)
[2017-06-15] MEDS: ROPINIROLE HCL 0.25 MG TAB PO SCH (20:20)
[2017-06-16 03:33] VITALS: BP 92/55; PULSE 58; TEMP 36.2; O2SAT 96
[2017-06-16] MEDS: LEVOTHYROXINE 112 MCG TAB PO SCH (05:56)
[2017-06-16 06:58] LABS: CALCIUM 8.9 mg/dl (8.5-10.1); CREATININE 1.92 mg/dl (0.60-1.20)
[2017-06-16 08:28] VITALS: BP 92/57; PULSE 64; TEMP 36.6; O2SAT 97
[2017-06-16 08:49] VITALS: BP 90/51; PULSE 63; TEMP 36.6; O2SAT 97
[2017-06-16] MEDS: METOPROLOL SUCC 25MG EXT REL TAB PO SCH ×2 (08:50→21:27)
[2017-06-16] MEDS: PYRIDOXINE HCL 50 MG TAB PO SCH (08:50)
[2017-06-16] MEDS: BUMETANIDE 1 MG TAB PO SCH ×2 (08:51→17:06)
[2017-06-16] MEDS: FERROUS SULFATE 325 MG TAB PO SCH ×2 (08:51→17:06)
[2017-06-16] MEDS: CEROVITE ADV FORMULA TAB PO SCH (08:51)
[2017-06-16] MEDS: CALCITRIOL 0.25 MCG CAP PO SCH (08:51)
[2017-06-16] MEDS: APIXABAN 2.5 MG TAB PO SCH (08:52)
[2017-06-16] MEDS: ASPIRIN 81 MG ECTAB PO SCH (08:52)
[2017-06-16] MEDS: CHOLECALCIFEROL 1000 INTER.UNIT TAB PO SCH (08:53)
[2017-06-16] MEDS: ATORVASTATIN 40 MG TAB PO SCH (08:53)
[2017-06-16] MEDS: AMIODARONE 200 MG TAB PO SCH ×2 (08:53→10:03)
[2017-06-16] MEDS: POTASSIUM CHLORIDE 20 MEQ TABCR PO SCH (08:53)
[2017-06-16] MEDS: DOCUSATE SODIUM 100 MG CAP PO PRN (09:01)
--- NOTE | 2017-06-16 10:33 | Progress Note ---
Internal Med Progress Note Date of Service: Jun 16, 2017. Provider Documentation: SUBJECTIVE: Seen and examined at bedside Planned to get dialysis tomorrow Doing well this morning LUE pain and swelling at the AV fistula site improving Denies chest pain, SOB, dizziness No new complaints Will hold eliquis tonight OBJECTIVE: Vital Signs-as noted below Physical Exam: General Appearance:Moderately built and nourished, no apparent distress Head: normocephalic, Atraumatic Eyes: normal inspection, EOMI, PERRL Neck: supple, Trachea midline Respiratory/Chest: Decreased breath sounds, Basal Rales Cardiovascular: S1, S2, No murmur Abdomen/GI:Soft, Non tender, Bowel sounds present Extremities/Musculoskelatal:normal inspection, Trace edema , LUE ecchymosis, swelling, AV fistula Neurologic/Psych:AAOX3, grossly no focal neurological deficits Skin: normal color, warm Lab data as noted below. ASSESSMENT & PLAN: Patient is an 82-year-old female who presents with not feeling well and requiring dialysis. Patient is a direct admit on recommendations from Nephrology for reinitiation of Dialysis Chronic ESRD: Volume overload status: Chronic Oxygen dependency: on 1L at baseline Dialysis as per Nephrology Continue Bumex 2 mg b.i.d, potassium chloride 20 mEq daily Monitor electrolytes Appreciate Nephrology help Needs outpatient dialysis set up prior to discharge Dialysis per Nephrology Left Upper Extremity Hematoma: At AV fistula site Likely present prior to admission (Patient reports swelling about 8 days ago and feels swelling has improved) Venous Doppler:No definite patent fistula identified. Large complex lesion of the left arm superficial to the brachial artery measures up to 6.1 cm suggesting hematoma. Patent brachial artery. Hold eliquis tonight Monitor Hb Consult Vascular Surgery H/O atrial fibrillation: Bradycardia improved with BB adjustment Rate controlled Continue amiodarone 200 mg daily Metoprolol dose decreased to 25mg BID secondary to bradycardia On Eliquis for anticoagulation Appreciate Cardiology Input HTN: Stable Continue diuretics, BB HLP: Continue statin. Hypothyroidism: Continue Synthroid Restless legs syndrome: Continue Requip H/O chronic combined systolic and diastolic heart failure: on Bumex Also volume status being managed through dialysis PVD Presumed Ischemic Heart disease Non specific ST-T wave changes Could not get cardiac cath in the past secondary to severe PVD Denies chest pain Continue ASA, stains, BB GERD: Continue PPI Anemia OF chronic kidney disease: continue Iron supplements Received IV Venofer DVT Px: On eliquis SCDs Code Status: Full code Disposition: PT/OT Social service consulted Vital Signs: Date Time Temp Pulse Resp B/P (MAP) Pulse Ox O2 Delivery O2 Flow Rate FiO2 06/16/17 08:49 36.6 63 16 90/51 (64) 97 Nasal Cannula 1.0 06/16/17 08:28 36.6 64 20 92/57 (69) 97 Nasal Cannula 1.0 06/16/17 08:00 Nasal Cannula 1.0 06/16/17 04:00 Nasal Cannula 1.0 06/16/17 03:33 36.2 58 16 92/55 (67) 96 06/16/17 00:00 Nasal Cannula 1.0 06/15/17 23:45 36.3 62 18 102/65 (77) 94 06/15/17 20:26 36.6 71 18 102/69 (80) 97 Nasal Cannula 1.0 06/15/17 20:00 Nasal Cannula 1.0 06/15/17 16:20 36.6 70 18 89/56 (67) 97 Nasal Cannula 1.0 06/15/17 16:00 Nasal Cannula 1.0 06/15/17 15:11 36.7 71 117/73 (88) 06/15/17 14:45 69 119/74 06/15/17 14:30 70 106/72 06/15/17 14:15 70 111/68 06/15/17 14:00 71 106/65 06/15/17 13:45 70 112/69 06/15/17 13:30 69 109/71 06/15/17 13:15 69 102/65 06/15/17 13:00 68 111/64 06/15/17 12:45 68 106/67 06/15/17 12:30 67 101/68 06/15/17 12:15 67 103/67 06/15/17 12:00 68 105/65 06/15/17 11:49 36.9 72 108/69 (82) 06/15/17 11:40 Nasal Cannula 1.0 Lab Results: Results Past 24 Hours Test 06/15/17 16:00 06/16/17 06:11 Range/Units Hemoglobin 8.8 12.0-16.0 g/dL Hematocrit 29.7 31.0 37-47 % Sodium Level 135 136-145 mmol/L Potassium Level 4.0 3.5-5.1 mmol/L Chloride Level 101 98-107 mmol/L Carbon Dioxide Level 28 21-32 mmol/L Anion Gap 6.0 3-11 mmol/L Blood Urea Nitrogen 10 7-18 mg/dl Creatinine 1.92 0.60-1.20 mg/dl Est Creatinine Clear Calc Drug Dose 17.9 ml/min Estimated GFR () 27.8 Estimated GFR (Non- 24.0 BUN/Creatinine Ratio 5.0 10-20 Random Glucose 101 70-99 mg/dl Calcium Level 8.9 8.5-10.1 mg/dl
[2017-06-16 11:28] VITALS: BP 112/75; PULSE 64; TEMP 36.5; O2SAT 97
[2017-06-16 14:49] LABS: HEMOGLOBIN 8.9 g/dL (12.0-16.0)
[2017-06-16 16:17] VITALS: BP 114/75; PULSE 64; TEMP 36.7; O2SAT 97
[2017-06-16 19:27] VITALS: BP 110/73; PULSE 64; TEMP 36.5; O2SAT 96
[2017-06-16] MEDS: ROPINIROLE HCL 0.25 MG TAB PO SCH (21:27)
[2017-06-17] VITALS (23 sets, daily range): BP systolic 81–122; BP diastolic 50–78; PULSE 59–72; TEMP 36.2–36.7; O2SAT 91–99
[2017-06-17] MEDS: LEVOTHYROXINE 112 MCG TAB PO SCH (06:25)
[2017-06-17 07:07] LABS: HEMATOCRIT 29.2 % (37-47); MEAN CORPUSCULAR HEMOGLOBIN 30.5 pg (25-34); MEAN CORPUSCULAR HGB CONC 30.8 g/dl (32-36); MEAN PLATELET VOLUME 10.9 fL (7.4-10.4); NUCLEATED RED BLOOD CELL ABS 0.04 K/uL (0-0); PLATELET COUNT 193 K/uL (130-400); RED CELL DISTRIBUTION WIDTH CV 26.6 % (11.5-14.5); RED CELL DISTRIBUTION WIDTH SD 84.4 fL (36.4-46.3); WHITE BLOOD COUNT 6.59 K/uL (4.8-10.8)
--- NOTE | 2017-06-17 07:33 | Nephrology Progress Note ---
Nephrology Progress Note Date of Service: Jun 17, 2017. Subjective 82 yo female with recalcitrant volume overload requiring dialysis. pts volume status has improved. has significant bruising from the fistula placement about ten days ago. us shows no patent fistula. Objective Date Time Temp Pulse Resp B/P (MAP) Pulse Ox O2 Delivery O2 Flow Rate FiO2 06/17/17 04:00 Nasal Cannula 1.0 06/17/17 03:42 36.2 59 18 105/62 (76) 94 06/17/17 00:14 36.3 63 16 93/60 (71) 91 Room Air 06/17/17 00:00 Nasal Cannula 1.0 06/16/17 20:00 Nasal Cannula 1.0 06/16/17 19:27 36.5 64 16 110/73 (85) 96 Nasal Cannula 1.0 06/16/17 16:17 36.7 64 18 114/75 (88) 97 Nasal Cannula 1.0 06/16/17 16:00 Nasal Cannula 1.0 06/16/17 12:00 Nasal Cannula 1.0 06/16/17 11:28 36.5 64 20 112/75 (87) 97 Nasal Cannula 1.0 06/16/17 08:49 36.6 63 16 90/51 (64) 97 Nasal Cannula 1.0 06/16/17 08:28 36.6 64 20 92/57 (69) 97 Nasal Cannula 1.0 06/16/17 08:00 Nasal Cannula 1.0 Physical Exam: General-aaox3 Eyes-no scleral icterus ENT-mmm Neck-supple Lungs-mild decrease at the right base Heart-regular Abdomen-bs+ s/nt/nd Extremities-no c/c/e, left arm with bruising-no bruit or thrill-hematoma resolving Neuro-nonfocal Current Inpatient Medications Medications (Trade) Dose Ordered Sig/Lashae Route Start Time Stop Time Status Last Admin Dose Admin Acetaminophen (Tylenol Tab) 650 mg Q4H PRN PO 06/10/17 18:30 07/10/17 18:29 06/12/17 08:08 650 MG Al Hydrox/Mg Hydrox/Simethicone (Maalox Max Susp) 15 ml Q4H PRN PO 06/10/17 18:30 07/10/17 18:29 Ondansetron HCl (Zofran Inj) 4 mg Q6H PRN IV 06/10/17 18:30 07/10/17 18:29 06/13/17 07:40 4 MG Nitroglycerin (Nitrostat Tab) 0.4 mg UD PRN SL 06/10/17 18:30 07/10/17 18:29 Polyethylene (Miralax Powder Packet) 17 gm DAILY PRN PO 06/10/17 18:30 07/10/17 18:29 06/11/17 13:37 17 GM Docusate Sodium (coLACE CAP) 100 mg BID PRN PO 06/10/17 18:30 07/10/17 18:29 06/16/17 09:01 100 MG Oxycodone HCl (Roxicodone Immediate Rel Tab) 5 mg Q4 PRN PO 06/10/17 18:30 06/24/17 18:29 06/10/17 22:19 5 MG Bumetanide (Bumex Tab) 2 mg BID17 PO 06/11/17 09:00 07/11/17 08:59 06/16/17 17:06 2 MG Potassium Chloride (Klor-Con Tab) 20 meq QAM PO 06/11/17 09:00 07/11/17 08:59 06/16/17 08:53 20 MEQ Multivitamins/ Minerals (Multivitamin W/ Minerals Tab) 1 tab QAM PO 06/11/17 09:00 07/11/17 08:59 06/16/17 08:51 1 TAB Ferrous Sulfate (Feosol Tab) 325 mg BIDM PO 06/11/17 07:30 07/11/17 07:29 06/16/17 17:06 325 MG Cholecalciferol (Vitamin D Tab) 5,000 inter.unit QAM PO 06/11/17 09:00 07/11/17 08:59 06/16/17 08:53 5,000 INTER.UNIT Levothyroxine Sodium (Synthroid Tab) 112 mcg DAILYBB PO 06/11/17 06:00 07/11/17 05:59 06/17/17 06:25 112 MCG Amiodarone HCl (Cordarone Tab) 200 mg QAM PO 06/11/17 09:00 07/11/17 08:59 06/16/17 10:03 200 MG Atorvastatin Calcium (Lipitor Tab) 80 mg QAM PO 06/11/17 09:00 2/15/18 08:59 06/16/17 08:53 80 MG Apixaban (Eliquis Tab) 2.5 mg BID PO 06/10/17 21:00 07/10/17 20:59 Future Hold 06/16/17 08:52 2.5 MG Pyridoxine HCl (Vitamin B-6 Tab) 50 mg QAM PO 06/11/17 09:00 07/11/17 08:59 06/16/17 08:50 50 MG Calcitriol (Rocaltrol Cap) 0.25 mcg QAM PO 06/11/17 09:00 07/11/17 08:59 06/16/17 08:51 0.25 MCG Ropinirole HCl (Requip Tab) 0.5 mg HS PO 06/10/17 21:00 07/10/17 20:59 06/16/17 21:27 0.5 MG Aspirin (Ecotrin Tab) 81 mg QAM PO 06/11/17 09:00 07/11/17 08:59 Future Hold 06/16/17 08:52 81 MG Metoprolol Succinate (Toprol Xl Tab) 25 mg BID PO 06/12/17 21:00 07/10/17 20:59 06/16/17 21:27 25 MG Heparin Sodium (Porcine) (Heparin Iv Bolus) 1,000 unit TODAY@0800 IV 06/17/17 08:00 06/17/17 18:00 Heparin Sodium (Porcine) (Heparin Iv Bolus) 400 unit TODAY@0800,0900,1000 IV 06/17/17 08:00 06/17/17 18:00 Iron Sucrose 100 mg/Syringe 5 ml @ 1 mls/min TODAY@0800 IV 06/17/17 08:00 06/17/17 18:00 Albumin Human (Albumin 25%) 12.5 gm TODAY@0800,0930 IV 06/17/17 08:00 06/17/17 18:00 Last 24 Hours Test 06/17/17 06:36 White Blood Count 6.59 K/uL Red Blood Count 2.95 M/uL Hemoglobin 9.0 g/dL Hematocrit 29.2 % Mean Corpuscular Volume 99.0 fL Mean Corpuscular Hemoglobin 30.5 pg Mean Corpuscular Hemoglobin Concent 30.8 g/dl RDW Standard Deviation 84.4 fL RDW Coefficient of Variation 26.6 % Platelet Count 193 K/uL Mean Platelet Volume 10.9 fL Nucleated RBC Absolute Count (auto) 0.04 K/uL Nucleated Red Blood Cells % 0.7 % Assessment & Plan ESRD-for dialysis again today with albumin. continue uf of about one liter per treatment. Anemia-has significant iron deficiency and giving iv venofer on dialysis to help improve hg levels. no procrit yet. Access: using tunneled line. us of fistula shows no patent fistula. will likely need new fistula placed. pt also with hx of bypasses to her legs and was having pain in her legs. outpt vascular surgeon was hoping to evaluate the bypasses for any stenoses. now that she is on dialysis, able to pursue further imaging if warranted. consulting irma for his expert opinion.
[2017-06-17 07:40] LABS: CALCIUM 9.4 mg/dl (8.5-10.1); CREATININE 2.87 mg/dl (0.60-1.20); POTASSIUM 4.3 mmol/L (3.5-5.1)
[2017-06-17] MEDS ORDERED: IRON SUCROSE INJ 100 MG in SYRINGE 0 ML IV SCH (08:00)
[2017-06-17] MEDS ORDERED: HEPARIN SOD (PORCINE) 1000 UNIT/ML 10 ML VIAL IV SCH (08:00)
[2017-06-17] MEDS: CALCITRIOL 0.25 MCG CAP PO SCH (08:13)
[2017-06-17] MEDS: PYRIDOXINE HCL 50 MG TAB PO SCH (08:14)
[2017-06-17] MEDS: ATORVASTATIN 40 MG TAB PO SCH (08:14)
[2017-06-17] MEDS: CEROVITE ADV FORMULA TAB PO SCH (08:14)
[2017-06-17] MEDS: AMIODARONE 200 MG TAB PO SCH (08:15)
[2017-06-17] MEDS: POTASSIUM CHLORIDE 20 MEQ TABCR PO SCH (08:16)
[2017-06-17] MEDS: CHOLECALCIFEROL 1000 INTER.UNIT TAB PO SCH (08:16)
[2017-06-17] MEDS: FERROUS SULFATE 325 MG TAB PO SCH ×2 (08:17→17:53)
[2017-06-17] MEDS: BUMETANIDE 1 MG TAB PO SCH ×2 (08:17→17:53)
[2017-06-17] MEDS: HEPARIN SOD (PORCINE) 1000 UNIT/ML 10 ML VIAL IV SCH ×3 (09:00→11:00)
[2017-06-17] MEDS: ALBUMIN HUMAN 25% 12.5 GM/50 ML VIAL IV SCH ×2 (09:08→10:20)
--- NOTE | 2017-06-17 09:54 | Progress Note ---
Internal Med Progress Note Date of Service: Jun 17, 2017. Provider Documentation: SUBJECTIVE: Seen and examined at bedside Currently getting dialysis Denies LUE pain Denies chest pain, SOB, dizziness No new complaints Discussed with Vascular surgery, plan to resume Aspirin, Eliquis OBJECTIVE: Vital Signs-as noted below Physical Exam: General Appearance:Moderately built and nourished, no apparent distress Head: normocephalic, Atraumatic Eyes: normal inspection, EOMI, PERRL Neck: supple, Trachea midline Respiratory/Chest: Decreased breath sounds, CTA Cardiovascular: S1, S2, No murmur Abdomen/GI:Soft, Non tender, Bowel sounds present Extremities/Musculoskelatal:normal inspection, Trace edema , LUE ecchymosis, swelling, AV fistula, decreased pedal pulses Neurologic/Psych:AAOX3, grossly no focal neurological deficits Skin: normal color, warm Lab data as noted below. ASSESSMENT & PLAN: Patient is an 82-year-old female who presents with not feeling well and requiring dialysis. Patient is a direct admit on recommendations from Nephrology for reinitiation of Dialysis Chronic ESRD: Volume overload status: Chronic Oxygen dependency: on 1L at baseline Dialysis as per Nephrology Continue Bumex 2 mg b.i.d, potassium chloride 20 mEq daily Monitor electrolytes Appreciate Nephrology help Needs outpatient dialysis set up prior to discharge Dialysis per Nephrology Left Upper Extremity Hematoma: At AV fistula site Likely present prior to admission (Patient reports swelling about 8 days ago and feels swelling/pain has improved) Venous Doppler:No definite patent fistula identified. Large complex lesion of the left arm superficial to the brachial artery measures up to 6.1 cm suggesting hematoma. Patent brachial artery. Resume eliquis as discussed with Vascular surgery, no plan for immediate intervention Planned for CTA today to assess bypasses of her legs for any stenoses Monitor Hb:9.0 today Consulted Vascular Surgery Need to hold eliquis, Aspirin if planned for intervention: either new AV fistula placement or intervention of Bypasses of legs H/O atrial fibrillation: Bradycardia improved with BB adjustment Rate controlled Continue amiodarone 200 mg daily Metoprolol dose decreased to 25mg BID secondary to bradycardia On Eliquis for anticoagulation Appreciate Cardiology Input HTN: Stable Continue diuretics, BB HLP: Continue statin. Hypothyroidism: Continue Synthroid Restless legs syndrome: Continue Requip H/O chronic combined systolic and diastolic heart failure: on Bumex Also volume status being managed through dialysis PVD Presumed Ischemic Heart disease Non specific ST-T wave changes Could not get cardiac cath in the past secondary to severe PVD Denies chest pain Continue ASA, stains, BB GERD: Continue PPI Anemia OF chronic kidney disease: continue Iron supplements Received IV Venofer DVT Px: On eliquis Code Status: Full code Disposition: PT/OT Social service consulted Vital Signs: Date Time Temp Pulse Resp B/P (MAP) Pulse Ox O2 Delivery O2 Flow Rate FiO2 06/17/17 09:30 63 93/61 06/17/17 09:15 61 81/50 06/17/17 09:00 62 96/63 06/17/17 08:43 36.5 72 95/62 (73) 06/17/17 07:08 36.4 62 20 116/74 (88) 98 Nasal Cannula 1.0 06/17/17 07:00 Nasal Cannula 1.0 06/17/17 04:00 Nasal Cannula 1.0 06/17/17 03:42 36.2 59 18 105/62 (76) 94 06/17/17 00:14 36.3 63 16 93/60 (71) 91 Room Air 06/17/17 00:00 Nasal Cannula 1.0 06/16/17 20:00 Nasal Cannula 1.0 06/16/17 19:27 36.5 64 16 110/73 (85) 96 Nasal Cannula 1.0 06/16/17 16:17 36.7 64 18 114/75 (88) 97 Nasal Cannula 1.0 06/16/17 16:00 Nasal Cannula 1.0 06/16/17 12:00 Nasal Cannula 1.0 06/16/17 11:28 36.5 64 20 112/75 (87) 97 Nasal Cannula 1.0 Lab Results: Results Past 24 Hours Test 06/17/17 06:36 06/17/17 10:00 Range/Units White Blood Count 6.59 4.8-10.8 K/uL Red Blood Count 2.95 4.2-5.4 M/uL Hemoglobin 9.0 12.0-16.0 g/dL Hematocrit 29.2 37-47 % Mean Corpuscular Volume 99.0 80-100 fL Mean Corpuscular Hemoglobin 30.5 25-34 pg Mean Corpuscular Hemoglobin Concent 30.8 32-36 g/dl RDW Standard Deviation 84.4 36.4-46.3 fL RDW Coefficient of Variation 26.6 11.5-14.5 % Platelet Count 193 130-400 K/uL Mean Platelet Volume 10.9 7.4-10.4 fL Nucleated RBC Absolute Count (auto) 0.04 0-0 K/uL Nucleated Red Blood Cells % 0.7 % Sodium Level 137 136-145 mmol/L Potassium Level 4.3 3.5-5.1 mmol/L Chloride Level 102 98-107 mmol/L Carbon Dioxide Level 30 21-32 mmol/L Anion Gap 5.0 3-11 mmol/L Blood Urea Nitrogen 17 7-18 mg/dl Creatinine 2.87 0.60-1.20 mg/dl Est Creatinine Clear Calc Drug Dose 12.0 ml/min Estimated GFR () 17.1 Estimated GFR (Non- 14.8 BUN/Creatinine Ratio 6.0 10-20 Random Glucose 87 70-99 mg/dl Calcium Level 9.4 8.5-10.1 mg/dl
[2017-06-17] MEDS ORDERED: APIXABAN 2.5 MG TAB PO ONE (10:30)
[2017-06-17] MEDS ORDERED: ASPIRIN 81 MG ECTAB PO ONE (10:30)
--- NOTE | 2017-06-17 10:53 | Surgery Consultation ---
Consultation Date of Service Jun 17, 2017. Chief Complaint LUE hematoma, BLE PAD History of Present Illness The patient is a 82 year old female with multiple medical problems, recently started on HD through R IJ permcath, seen in consultation today for LUE hematoma as well as hx of PAD. Pt underwent LUE AVF creation and permcath insertion at [facility] 10 days ago. Pt states her L arm became swollen shortly after and worsened for a few days before stabilizing. Per dialysis staff, no thrill or bruit noted. Imaging demonstrates large hematoma without active bleeding. Pt also with vascular surgical hx of R [place] [facility] [place] States she sees a [facility] surgeon, Dr Maynard, who advised her that there are concerns related to the inflow of her bypass and recommended she have angiography done, however, pt had severe CKD and wsa not yet on HD at the time. Pt and daughter in law state they were told that the pt' s bypass could "block up," so they are concerned about it. Pt admits some calf claudication, but denies rest pain or open wounds. Admits BLE numbness occasionally. Denies KAT, fever, chills, chest pain, SOB,abd pain, N/V, other complaints. Vitals Vital Signs Past 12 Hours Date Time Temp Pulse Resp B/P (MAP) Pulse Ox O2 Delivery O2 Flow Rate FiO2 06/17/17 10:30 63 113/72 06/17/17 10:15 64 117/75 06/17/17 10:00 65 119/70 06/17/17 09:45 69 103/53 06/17/17 09:30 63 93/61 06/17/17 09:15 61 81/50 06/17/17 09:00 62 96/63 06/17/17 08:43 36.5 72 95/62 (73) 06/17/17 07:08 36.4 62 20 116/74 (88) 98 Nasal Cannula 1.0 06/17/17 07:00 Nasal Cannula 1.0 06/17/17 04:00 Nasal Cannula 1.0 06/17/17 03:42 36.2 59 18 105/62 (76) 94 06/17/17 00:14 36.3 63 16 93/60 (71) 91 Room Air 06/17/17 00:00 Nasal Cannula 1.0 Allergies Coded Allergies: Penicillins (Verified Allergy, Intermediate, ARM EDEMA, 06/10/17) Problem List Medical Problems: (1) ESRD needing dialysis Surgical / Medical History Hx Cardiac Surgery: Yes (CARD CATH) Hx Abdominal Surgery: Yes (GREGORY,COLON,APPY,GB) Hx Cancer Surgery: Yes (COLON) Hx Thoracic Surgery: No Hx Orthopedic: Yes (BILATERAL WRIST) Hx Urinary Tract Surgery: No Past Medical/Surgical History: Cancer, Hypertension, Kidney Disease Family History + HTN Social History Smoking Status: Former Smoker Hx Tobacco Use In Past Year?: No Hx Alcohol Use - Type & Amnt: No Hx Substance Use -Type & Amnt: No Review of Systems Constitutional: + malaise, No chills, No fever Skin: No change in color Eyes: No visual changes ENMT: No sore throat Respiratory: No cough, No BERG, No hemoptysis, No short of breath Cardiovascular: + intermittent claudication, No chest pain, No palpitations, No syncope, No edema Gastrointestinal: No abdominal pain, No nausea, No vomiting Genitourinary - Female: No dysuria Neurologic: + numbness, No dizziness, No lethargy Physical Exam Constitutional: General Apperance: well-nourished, well-developed, cachectic Level of Distress: NAD, chronically ill Psychiatric: Mental Status: active & alert, normal mood, normal affect Orientation: to time, to place, to person Memory: recent memory normal (sometimes vague), remote memory normal Head: normocephalic, atraumatic Eyes: Pupils: PERRLA ENMT: hearing grossly normal Neck: supple, trachea midline Lungs: Respiratory effort: no dyspnea Auscultation: no rhonchi, deminished air movement, decreased breath sounds, wet rales/crackles Cardiovascular: Apical Impulse: not displaced Heart Auscultation: RRR, no rubs, no gallops Peripheral Pulses: Pulses: full and equal, in all extremities except if noted Bruits: none appreciated Carotid Pulse: normal on the left, normal on the right Brachial Pulses: normal on the left, normal on the right Radial Pulse: normal on the left, normal on the right Femoral Pulse: decreased on the left, decreased on the right Posterior Tibialis Pulse: absent on the left, absent on the right Dorsalis Pedis Pulse: absent on the left, absent on the right Abdomen: Bowel Sounds: normal Inspection & Palpation: soft, non-distended, no tenderness, guarding & rebound Musculoskeletal: normal strength (5/5 throughout), normal tone Extremities: Upper Right: no cyanosis, no edema, no varicosities Upper Left: no cyanosis, no varicosities, pertinent finding (+ edema, ecchymosis, firm hematoma, mildly tender. No erythema or warmth noted. Incision intact.) Lower Right: no cyanosis, no edema, no varicosities Lower Left: no cyanosis, no edema, no varicosities Neurologic: Cranial Nerves: grossly intact Sensation: grossly intact Assessment and Plan ASSESSMENT and PLAN: LUE hematoma, failed AVF hx of ax-bifemoral bypass, possibly stenosed, with claudication Pt with complicated medical hx and increasing frailty. Discussed wtih Dr Moore, recommends CTA chest, abd, runoff, to determine whether her bypass is at urgent risk. If it is, pt may require intervention during this hospitalization. If not, will recommend pt follow up with her regular vasc surgeon at [place], as she has [employer] insurance.
[2017-06-17] MEDS: METOPROLOL SUCC 25MG EXT REL TAB PO SCH ×2 (13:35→20:07)
[2017-06-17] MEDS ORDERED: HEPARIN SOD 5000 UNIT/0.5 ML CARP SQ SCH (14:00)
[2017-06-17 16:01] LABS: INR 1.2 (0.9-1.1)
[2017-06-17] MEDS: ROPINIROLE HCL 0.25 MG TAB PO SCH (20:06)
[2017-06-17] MEDS: APIXABAN 2.5 MG TAB PO SCH (20:07)
[2017-06-18] VITALS (7 sets, daily range): BP systolic 93–117; BP diastolic 59–75; PULSE 52–60; TEMP 36.2–36.7; O2SAT 97–99
[2017-06-18] MEDS: LEVOTHYROXINE 112 MCG TAB PO SCH (05:39)
[2017-06-18 07:47] LABS: HEMOGLOBIN 9.5 g/dL (12.0-16.0); MEAN CELL VOLUME 99.1 fL (80-100); MEAN CORPUSCULAR HEMOGLOBIN 29.4 pg (25-34); MEAN CORPUSCULAR HGB CONC 29.7 g/dl (32-36); MEAN PLATELET VOLUME 10.8 fL (7.4-10.4); PLATELET COUNT 201 K/uL (130-400); RED CELL DISTRIBUTION WIDTH CV 27.3 % (11.5-14.5); RED CELL DISTRIBUTION WIDTH SD 85.5 fL (36.4-46.3); WHITE BLOOD COUNT 7.96 K/uL (4.8-10.8)
[2017-06-18] MEDS: BUMETANIDE 1 MG TAB PO SCH ×2 (08:04→19:54)
[2017-06-18] MEDS: FERROUS SULFATE 325 MG TAB PO SCH ×2 (08:04→19:54)
[2017-06-18] MEDS: AMIODARONE 200 MG TAB PO SCH (08:05)
[2017-06-18] MEDS: ASPIRIN 81 MG ECTAB PO SCH (08:06)
[2017-06-18] MEDS: POTASSIUM CHLORIDE 20 MEQ TABCR PO SCH (08:07)
[2017-06-18] MEDS: ATORVASTATIN 40 MG TAB PO SCH (08:07)
[2017-06-18] MEDS: METOPROLOL SUCC 25MG EXT REL TAB PO SCH ×2 (08:08→19:53)
[2017-06-18] MEDS: CALCITRIOL 0.25 MCG CAP PO SCH (08:08)
[2017-06-18] MEDS: CEROVITE ADV FORMULA TAB PO SCH (08:08)
[2017-06-18] MEDS: CHOLECALCIFEROL 1000 INTER.UNIT TAB PO SCH (08:09)
[2017-06-18] MEDS: APIXABAN 2.5 MG TAB PO SCH ×2 (08:09→19:53)
[2017-06-18] MEDS: PYRIDOXINE HCL 50 MG TAB PO SCH (08:10)
[2017-06-18] MEDS: POLYETHYLENE (MIRALAX) 17 GM PACK PO PRN (08:17)
[2017-06-18 08:22] LABS: CALCIUM 9.7 mg/dl (8.5-10.1); CREATININE 2.24 mg/dl (0.60-1.20); POTASSIUM 3.8 mmol/L (3.5-5.1)
--- NOTE | 2017-06-18 14:51 | DIAGNOSTIC IMAGING REPORT ---
CT ANGIOGRAM OF THE CHEST COMBO CLINICAL HISTORY: End-stage renal disease. Severe atherosclerosis. COMPARISON STUDY: Chest x-ray dated 06/10/2017. TECHNIQUE: Before and following the IV administration of 93 cc of Optiray 320, CT angiogram of the chest was performed from the thoracic inlet to the upper abdomen utilizing the dissection protocol. Images are reviewed in the axial, sagittal, and coronal planes. 3-D MIPS images are created and assessed. IV contrast was administered without complication. A dose lowering technique was utilized adhering to the principles of ALARA. FINDINGS: Thyroid: Atrophic. Thoracic aorta: There is advanced atherosclerotic calcification of the thoracic aorta. The thoracic aorta is normal in caliber and widely patent. The arch demonstrates standard 3-vessel anatomy. No dissection is seen. 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 The remainder of the left subclavian artery is otherwise patent. The innominate artery, the right subclavian artery, and both common carotid arteries are patent as imaged. A right axillary artery bypass is identified in the right chest wall and patent to the level of the upper abdomen. Pulmonary vasculature: The pulmonary trunk is normal in caliber. There are no central filling defects identified in the pulmonary vessels to suggest pulmonary embolus. Note that this examination was not specifically protocoled to assess for pulmonary emboli. Heart: The heart is normal in size and configuration, and without pericardial effusion. Lungs and pleural spaces: Advanced emphysema is identified. By apical scarring is observed. There are moderate pleural effusions, right larger than left with associated atelectasis. Intralobular septal thickening is present throughout both lungs. There are scattered foci of groundglass change. Mediastinum: There is abnormal soft tissue density throughout the mediastinum, likely representing lymphadenopathy. Jazmyn: Clear. Axillae: There is no axillary lymphadenopathy. Upper abdomen: There is a small hiatal hernia. Partially visualized upper abdominal viscera is otherwise normal as imaged. Skeletal structures: The skeletal structures are osteopenic. No lytic or blastic bony lesions are seen. Soft tissues: There is body wall edema. IMPRESSION: 1. The thoracic aorta is normal in caliber and widely patent. No dissection is seen. 2. 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 Note that this places the patient at risk for subclavian steal phenomenon. 3. A right axillary artery bypass is present within the right chest wall soft tissues. This is patent into the upper abdomen. 4. Cardiomegaly with evidence of congestive failure. 5. There are moderate pleural effusions, right larger than left with associated atelectasis. 6. Scattered ground glass opacities likely represent interstitial edema. Clinical correlation will be required. 7. There is nonspecific mediastinal lymphadenopathy. No hilar or axillary adenopathy is seen. 8. Advanced emphysema. 9. Additional findings as above. Electronically signed by: Zachary Bryant M.D. 06/18/2017 2:50 PM Dictated Date/Time: 06/18/2017 2:41 PM
--- NOTE | 2017-06-18 15:01 | DIAGNOSTIC IMAGING REPORT ---
ANGIO AA JUICE LE RUNOFF HISTORY: 82 years-old Female presents with bilateral lower extremity occlusive disease and history of prior bifemoral bypass COMPARISON: CTA of the chest 06/18/2017 TECHNIQUE: CTA of the abdomen and pelvis with bilateral lower extremity runoff was obtained both with and without the use of 93 mL Optiray 320 IV contrast. 3-D coronal and sagittal MIPS were obtained from the axial data set and submitted for review. All measurements were obtained according to NASCET criteria. A dose lowering technique was used consistent with the principals of GLO. FINDINGS: CTA: Patent right axillary artery bypass graft kidney contains with bilateral femoral arterial bypass grafts which are patent. There is moderate mixed plaquing throughout the superficial femoral arteries bilaterally without evidence of occlusion or high-grade narrowing. Extensive mixed plaquing involves the bilateral popliteal arteries which appears to cause high-grade stenosis as seen on image 735 series 10 on the right. There is diminished flow within the bilateral feet peroneal trunks and lower extremity arteries below the level of the knees. Flow within the bilateral lower extremities is seen to level of the tibioperoneal trunks without significant flow identified distally. Extensive atherosclerotic plaquing limits evaluation. Extensive atherosclerotic plaquing of the abdominal aorta with infrarenal abdominal aortic occlusion. There is also occlusion involving the proximal portions of the bilateral iliac arteries with reconstitution of flow seen near the bifurcation of the extradural an ill internal iliac arteries bilaterally. There is moderate to severe narrowing involving segment of the external iliac arteries bilaterally, left greater the right nicely seen on image 290 series 10 on the left. There is high-grade luminal narrowing involving the origin of the celiac trunk and superior mesenteric arteries secondary to extensive atherosclerotic plaquing. Less than 50% stenosis involves the origin of the left renal artery with severe stenosis involving the origin of the right renal artery. There is diminished flow within the proximal portion of the inferior mesenteric artery within the first 2 cm of vessel with the remainder of the vessel well opacified. CT ABDOMEN AND PELVIS: Moderate to extensive multichamber cardiac enlargement with coronary arterial disease is partially imaged. [id number] left and moderate right pleural effusions with bibasilar consolidative opacities suggesting compressive atelectasis. Interlobular septal thickening is also noted suggesting pulmonary edema. No pneumatosis or pneumoperitoneum identified. Prior cholecystectomy. Liver, spleen, pancreas and right adrenal gland are unremarkable. Thickening of the left adrenal gland suggests hyperplasia. There is heterogeneous enhancement about the left kidney. No renal calculi or hydronephrosis. Severe right renal atrophy with multiple low attenuating lesions suggesting renal cysts. Mild wall thickening of the bladder suggesting partial distention or cystitis. Prior hysterectomy. Mild abdominal and pelvic ascites. No adnexal mass lesions identified. There is no bulky adenopathy identified. There is no bowel obstruction or focal bowel wall thickening identified. Moderate stool volume of the distal colon. Mild diffuse body wall edema. No focal soft tissue abnormality identified within the lower extremities. The bones appear intact. Degenerative changes are noted about the knees. The bones appear mildly demineralized. Multilevel discogenic degenerative changes and facet arthropathy of the spine. IMPRESSION: 1. Patent right axillary bifemoral arterial bypass graft with patency of the bilateral superficial femoral and popliteal arteries. There is no significant arterial flow identified below the level of the popliteal arteries bilaterally. Evaluation of the arteries within the lower extremities below the level of the knee are limited secondary to extensive calcific plaquing. If of further clinical concern, consider duplex arterial study of the lower extremities. 2. Extensive atherosclerotic vascular disease with occlusion of the infrarenal abdominal aorta and common iliac arteries bilaterally. Reconstitution of flow seen within the bilateral external and iliac arteries. High-grade luminal narrowing involves the left greater than right external iliac arteries and right popliteal artery as above. 3. Extensive atherosclerotic plaquing at the origin of the celiac trunk and superior mesenteric artery also results in high-grade stenosis. 4. Severe stenosis with extensive mixed plaquing at the origin of the right renal artery with severe right renal atrophy, likely secondary to long-standing renal arterial stenosis. 5. Moderate mixed plaquing involves the bilateral superficial femoral arteries without high-grade stenosis. 6. Cardiomegaly with small to moderate left and moderate right pleural effusions with pulmonary edema and probable bibasilar atelectasis. 7. Additional findings as above. The above report was generated using voice recognition software. It may contain grammatical, syntax or spelling errors. Electronically signed by: Fausto Copeland M.D. 06/18/2017 3:00 PM Dictated Date/Time: 06/18/2017 2:41 PM
--- NOTE | 2017-06-18 17:14 | Progress Note ---
Medicine Progress Note Date & Time of Visit: Jun 18, 2017 at 17:14. Subjective Patient reports feeling constipated with the iron and complains of generalized abdominal discomfort. No overnight events noted. No other complaints. Tolerating PO. Feels her breathing and being weak are the greatest limiting factors for her now. Objective Last 8 Hrs Date Time Temp Pulse Resp B/P (MAP) Pulse Ox O2 Delivery O2 Flow Rate FiO2 06/18/17 16:28 36.6 59 18 114/74 (87) 97 Nasal Cannula 1.0 06/18/17 16:00 Nasal Cannula 1.0 06/18/17 12:00 Nasal Cannula 1.0 06/18/17 11:13 36.7 58 20 117/75 (89) 98 Nasal Cannula 1.0 Physical Exam: GENERAL: Patient is in no acute distress. HEENT: No acute trauma, normocephalic, mucous membranes moist, no nasal congestion, no scleral icterus. NECK: No stridor, trachea is midline. LUNGS: Crackles in bases bilaterally, no wheeze, no rhonchi, breath sounds equal. HEART: Without murmurs gallops or rubs, irregularly irregular. + VICKIE ABDOMEN: Soft, nontender, bowel sounds positive EXTREMITIES: No cyanosis or edema, full range of motion of all the joints without pain or difficulty, no signs for acute trauma. NEUROLOGIC: Oriented x 3, no acute motor or sensory deficits, no focal weakness. SKIN: No rash, no jaundice, no diaphoresis. Ecchymosis, and swelling in the left upper arm adjacent to the incision from recent AVF surgery Laboratory Results: Last 24 Hours Test 06/18/17 07:32 White Blood Count 7.96 K/uL Red Blood Count 3.23 M/uL Hemoglobin 9.5 g/dL Hematocrit 32.0 % Mean Corpuscular Volume 99.1 fL Mean Corpuscular Hemoglobin 29.4 pg Mean Corpuscular Hemoglobin Concent 29.7 g/dl RDW Standard Deviation 85.5 fL RDW Coefficient of Variation 27.3 % Platelet Count 201 K/uL Mean Platelet Volume 10.8 fL Sodium Level 134 mmol/L Potassium Level 3.8 mmol/L Chloride Level 102 mmol/L Carbon Dioxide Level 23 mmol/L Anion Gap 9.0 mmol/L Blood Urea Nitrogen 13 mg/dl Creatinine 2.24 mg/dl Est Creatinine Clear Calc Drug Dose 14.1 ml/min Estimated GFR () 23.1 Estimated GFR (Non- 19.9 BUN/Creatinine Ratio 6.0 Random Glucose 85 mg/dl Calcium Level 9.7 mg/dl Magnesium Level 2.1 mg/dl Assessment & Plan ESRD: chronic -presented with volume overload -Continue Bumex 2 mg b.i.d, potassium chloride 20 mEq daily -Monitor electrolytes -Nephrology consulted-dialysis as per Nephrology -outpatient dialysis set up prior to discharge -has right dialysis catheter and LUE failed/thrombosed fistula 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 Large complex lesion of the left arm superficial to the brachial artery measures up to 6.1 cm suggesting hematoma. Patent brachial artery. -resumed eliquis as discussed with Vascular surgery, no plan for immediate intervention -CTA done today to assess bypasses of her legs for any stenoses which appear patent -Monitor Hb -Vascular Surgery consulted -would need to hold eliquis, aspirin if plans for intervention ATRIAL FIBRILLATION: -is rate controlled -continued on amiodarone 200 mg daily -Metoprolol dose decreased to 25mg BID secondary to bradycardia -On Eliquis for anticoagulation -Cardiology consulted, appreciate input HTN: -controlled -continue diuretics, BB HYPOTHYROIDISM: -continue Synthroid RESTLESS LEGS SYNDROME: -continue Requip 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 Current Inpatient Medications: Current Inpatient Medications Medications (Trade) Dose Ordered Sig/Lashae Route Start Time Stop Time Status Last Admin Dose Admin Acetaminophen (Tylenol Tab) 650 mg Q4H PRN PO 06/10/17 18:30 07/10/17 18:29 06/12/17 08:08 650 MG Al Hydrox/Mg Hydrox/Simethicone (Maalox Max Susp) 15 ml Q4H PRN PO 06/10/17 18:30 07/10/17 18:29 Ondansetron HCl (Zofran Inj) 4 mg Q6H PRN IV 06/10/17 18:30 07/10/17 18:29 06/13/17 07:40 4 MG Nitroglycerin (Nitrostat Tab) 0.4 mg UD PRN SL 06/10/17 18:30 07/10/17 18:29 Polyethylene (Miralax Powder Packet) 17 gm DAILY PRN PO 06/10/17 18:30 07/10/17 18:29 06/18/17 08:17 17 GM Docusate Sodium (coLACE CAP) 100 mg BID PRN PO 06/10/17 18:30 07/10/17 18:29 06/16/17 09:01 100 MG Oxycodone HCl (Roxicodone Immediate Rel Tab) 5 mg Q4 PRN PO 06/10/17 18:30 06/24/17 18:29 06/10/17 22:19 5 MG Bumetanide (Bumex Tab) 2 mg BID17 PO 06/11/17 09:00 07/11/17 08:59 06/18/17 08:04 2 MG Potassium Chloride (Klor-Con Tab) 20 meq QAM PO 06/11/17 09:00 07/11/17 08:59 06/18/17 08:07 20 MEQ Multivitamins/ Minerals (Multivitamin W/ Minerals Tab) 1 tab QAM PO 06/11/17 09:00 07/11/17 08:59 06/18/17 08:08 1 TAB Ferrous Sulfate (Feosol Tab) 325 mg BIDM PO 06/11/17 07:30 07/11/17 07:29 06/18/17 08:04 325 MG Cholecalciferol (Vitamin D Tab) 5,000 inter.unit QAM PO 06/11/17 09:00 07/11/17 08:59 06/18/17 08:09 5,000 INTER.UNIT Levothyroxine Sodium (Synthroid Tab) 112 mcg DAILYBB PO 06/11/17 06:00 07/11/17 05:59 06/18/17 05:39 112 MCG Amiodarone HCl (Cordarone Tab) 200 mg QAM PO 06/11/17 09:00 07/11/17 08:59 06/18/17 08:05 200 MG Atorvastatin Calcium (Lipitor Tab) 80 mg QAM PO 06/11/17 09:00 07/11/17 08:59 06/18/17 08:07 80 MG Apixaban (Eliquis Tab) 2.5 mg BID PO 06/10/17 21:00 07/10/17 20:59 Future hold 06/18/17 08:09 2.5 MG Pyridoxine HCl (Vitamin B-6 Tab) 50 mg QAM PO 06/11/17 09:00 07/11/17 08:59 06/18/17 08:10 50 MG Calcitriol (Rocaltrol Cap) 0.25 mcg QAM PO 06/11/17 09:00 07/11/17 08:59 06/18/17 08:08 0.25 MCG Ropinirole HCl (Requip Tab) 0.5 mg HS PO 06/10/17 21:00 07/10/17 20:59 06/17/17 20:06 0.5 MG Aspirin (Ecotrin Tab) 81 mg QAM PO 06/11/17 09:00 07/11/17 08:59 Future hold 06/18/17 08:06 81 MG Metoprolol Succinate (Toprol Xl Tab) 25 mg BID PO 06/12/17 21:00 07/10/17 20:59 06/18/17 08:08 25 MG
[2017-06-18] MEDS: ROPINIROLE HCL 0.25 MG TAB PO SCH (19:53)
[2017-06-18] MEDS ORDERED: SIMETHICONE 80 MG CHEW PO ONE (21:46)
[2017-06-18] MEDS ORDERED: SIMETHICONE 80 MG CHEW PO PRN (22:00)
[2017-06-19] VITALS (20 sets, daily range): BP systolic 82–128; BP diastolic 42–77; PULSE 53–63; TEMP 36.3–36.9; O2SAT 91–100
[2017-06-19] MEDS: LEVOTHYROXINE 112 MCG TAB PO SCH (06:05)
[2017-06-19 07:52] LABS: CREATININE 2.7 mg/dl (0.60-1.20)
--- NOTE | 2017-06-19 08:18 | Nephrology Progress Note ---
Nephrology Progress Note Date of Service: Jun 19, 2017. Subjective 82 yo female with recalcitrant volume overload requiring dialysis. had appropriate dialysis and volume status has improved. pt eating more and feels bloated. not used to eating three times a day. pt also noticed urinating better now. cta was done yesterday showing pleural effusions, emphysema, complete occlusion of left subclavian. Objective Date Time Temp Pulse Resp B/P (MAP) Pulse Ox O2 Delivery O2 Flow Rate FiO2 06/19/17 07:15 36.4 56 20 128/73 (91) 98 Nasal Cannula 1.0 06/19/17 04:00 Nasal Cannula 1.0 06/19/17 03:23 36.3 53 16 116/73 (87) 100 06/18/17 23:59 Nasal Cannula 1.0 06/18/17 23:12 36.6 55 18 107/67 (80) 99 Nasal Cannula 1.0 06/18/17 20:00 Nasal Cannula 1.0 06/18/17 19:52 36.5 58 18 108/66 (80) 99 Nasal Cannula 1.0 06/18/17 16:28 36.6 59 18 114/74 (87) 97 Nasal Cannula 1.0 06/18/17 16:00 Nasal Cannula 1.0 06/18/17 12:00 Nasal Cannula 1.0 06/18/17 11:13 36.7 58 20 117/75 (89) 98 Nasal Cannula 1.0 06/18/17 08:07 36.6 60 20 93/59 (70) 98 Nasal Cannula 1.0 Physical Exam: General-aaox3 Eyes-no scleral icterus ENT-mmm Neck-supple Lungs-cta Heart-bradycardia Abdomen-bs+ s/nt/nd Extremities-no c/c/e, resolving hematoma on recent fistula attempt Neuro-nonfocal Current Inpatient Medications Medications (Trade) Dose Ordered Sig/Lashae Route Start Time Stop Time Status Last Admin Dose Admin Acetaminophen (Tylenol Tab) 650 mg Q4H PRN PO 06/10/17 18:30 07/10/17 18:29 06/12/17 08:08 650 MG Al Hydrox/Mg Hydrox/Simethicone (Maalox Max Susp) 15 ml Q4H PRN PO 06/10/17 18:30 07/10/17 18:29 Ondansetron HCl (Zofran Inj) 4 mg Q6H PRN IV 06/10/17 18:30 07/10/17 18:29 06/13/17 07:40 4 MG Nitroglycerin (Nitrostat Tab) 0.4 mg UD PRN SL 06/10/17 18:30 07/10/17 18:29 Polyethylene (Miralax Powder Packet) 17 gm DAILY PRN PO 06/10/17 18:30 07/10/17 18:29 06/18/17 08:17 17 GM Docusate Sodium (coLACE CAP) 100 mg BID PRN PO 06/10/17 18:30 07/10/17 18:29 06/16/17 09:01 100 MG Oxycodone HCl (Roxicodone Immediate Rel Tab) 5 mg Q4 PRN PO 06/10/17 18:30 06/24/17 18:29 06/10/17 22:19 5 MG Bumetanide (Bumex Tab) 2 mg BID17 PO 06/11/17 09:00 07/11/17 08:59 06/18/17 19:54 2 MG Potassium Chloride (Klor-Con Tab) 20 meq QAM PO 06/11/17 09:00 07/11/17 08:59 06/18/17 08:07 20 MEQ Multivitamins/ Minerals (Multivitamin W/ Minerals Tab) 1 tab QAM PO 06/11/17 09:00 07/11/17 08:59 06/18/17 08:08 1 TAB Ferrous Sulfate (Feosol Tab) 325 mg BIDM PO 06/11/17 07:30 07/11/17 07:29 06/18/17 19:54 325 MG Cholecalciferol (Vitamin D Tab) 5,000 inter.unit QAM PO 06/11/17 09:00 07/11/17 08:59 06/18/17 08:09 5,000 INTER.UNIT Levothyroxine Sodium (Synthroid Tab) 112 mcg DAILYBB PO 06/11/17 06:00 07/11/17 05:59 06/19/17 06:05 112 MCG Amiodarone HCl (Cordarone Tab) 200 mg QAM PO 06/11/17 09:00 07/11/17 08:59 06/18/17 08:05 200 MG Atorvastatin Calcium (Lipitor Tab) 80 mg QAM PO 06/11/17 09:00 07/11/17 08:59 06/18/17 08:07 80 MG Apixaban (Eliquis Tab) 2.5 mg BID PO 06/10/17 21:00 07/10/17 20:59 Future hold 06/18/17 19:53 2.5 MG Pyridoxine HCl (Vitamin B-6 Tab) 50 mg QAM PO 06/11/17 09:00 07/11/17 08:59 06/18/17 08:10 50 MG Calcitriol (Rocaltrol Cap) 0.25 mcg QAM PO 06/11/17 09:00 07/11/17 08:59 06/18/17 08:08 0.25 MCG Ropinirole HCl (Requip Tab) 0.5 mg HS PO 06/10/17 21:00 07/10/17 20:59 06/18/17 19:53 0.5 MG Aspirin (Ecotrin Tab) 81 mg QAM PO 06/11/17 09:00 07/11/17 08:59 Future hold 06/18/17 08:06 81 MG Metoprolol Succinate (Toprol Xl Tab) 25 mg BID PO 06/12/17 21:00 07/10/17 20:59 06/18/17 08:08 25 MG Simethicone (Mylicon Chew Tab) 80 mg Q6H PRN PO 06/18/17 22:00 07/18/17 21:59 Last 24 Hours Test 06/19/17 06:43 Creatinine 2.70 mg/dl Est Creatinine Clear Calc Drug Dose 11.7 ml/min Estimated GFR () 18.4 Estimated GFR (Non- 15.9 Assessment & Plan ESRD-for dialysis today with albumin and continue to remove about a liter of fluid on a 4k bath. Anemia-pt had iron deficiency. has recieved venofer and will give a dose of procrit today. hg levels have been trending up.now up to 9.5. Access-failed fistula attempt. appreciate vascular surgery evaluating the bypasses. will discuss further with them today.
[2017-06-19] MEDS: FERROUS SULFATE 325 MG TAB PO SCH ×2 (08:26→17:02)
[2017-06-19] MEDS: PYRIDOXINE HCL 50 MG TAB PO SCH (08:27)
[2017-06-19] MEDS: METOPROLOL SUCC 25MG EXT REL TAB PO SCH (08:27)
[2017-06-19] MEDS: CEROVITE ADV FORMULA TAB PO SCH (08:27)
[2017-06-19] MEDS: POTASSIUM CHLORIDE 20 MEQ TABCR PO SCH (08:28)
[2017-06-19] MEDS: BUMETANIDE 1 MG TAB PO SCH ×2 (08:28→17:02)
[2017-06-19] MEDS: ASPIRIN 81 MG ECTAB PO SCH (08:28)
[2017-06-19] MEDS: ATORVASTATIN 40 MG TAB PO SCH (08:28)
[2017-06-19] MEDS: CALCITRIOL 0.25 MCG CAP PO SCH (08:29)
[2017-06-19] MEDS: CHOLECALCIFEROL 1000 INTER.UNIT TAB PO SCH (08:29)
[2017-06-19] MEDS: AMIODARONE 200 MG TAB PO SCH (08:29)
[2017-06-19] MEDS: APIXABAN 2.5 MG TAB PO SCH (08:30)
[2017-06-19] MEDS: ALBUMIN HUMAN 25% 12.5 GM/50 ML VIAL IV SCH ×2 (09:15→11:24)
[2017-06-19] MEDS ORDERED: EPOETIN ALFA 10,000 UNITS/ML VIAL IV. ONE (10:00)
--- NOTE | 2017-06-19 12:07 | Medical Consult ---
Consultation Note Date of Service Jun 19, 2017. Consultation Note Pt's CTA reviewed by Dr Moore. No indications for urgent vascular surgical intervention at this time. Recommend pt f/u with her vascular surgeon at [place] as outpt. Discussed with Dr Abreu and pt's daughter, Sunita, by phone. Please call if needed.
--- NOTE | 2017-06-19 16:30 | Discharge Instructions ---
Discharge Instructions Date of Service Jun 19, 2017. Admission Reason for Admission: End Stage Renal Disease Discharge Discharge Diagnosis / Problem: End stage renal disease, LUE fistula thrombosis and hematoma Discharge Goals Goal(s): Therapeutic intervention Activity Recommendations Activity Limitations: as noted below Lifting Limitations: gradually increase as tolerated Exercise/Sports Limitations: gradually increase as tolerated . Instructions / Follow-Up Instructions / Follow-Up Please follow up with your Primary care physician next week; we were unable to reach them to make an appointment but it would be recommended to see them within 5-7 days of discharge. Please follow up with Vascular surgery in 2 weeks for follow up Current Hospital Diet Patient's current hospital diet: Renal Diet Discharge Diet Recommended Diet: Renal Diet Pending Studies Studies pending at discharge: no Medical Emergencies . Who to Call and When: Medical Emergencies: If at any time you feel your situation is an emergency, please call 911 immediately. . Non-Emergent Contact Non-Emergency issues call your: Primary Care Provider, Pigment Pusher, Surgeon . . "Provider Documentation" section prepared by Taylor Abreu. . VTE Core Measure Inpt VTE Proph given/why not?: Other Anticoagulation
--- NOTE | 2017-06-19 19:32 | Discharge Summary ---
Discharge Summary Date of Service Jun 19, 2017. Discharge Summary Admission Date: Jun 10, 2017 at 17:16 Discharge Date: Jun 19, 2017 Discharge Disposition: Home with services Principal Diagnosis: ESRD, fluid overload, LUE AV fistula hematoma and thrombosis Pending Studies/Follow-Up: Follow up in [place] with Vascular surgery Admission Information HPI (per Admitting provider): CHIEF COMPLAINT: Not feeling well, end-stage renal disease requiring dialysis. HISTORY OF PRESENT ILLNESS: This is an 82-year-old female with past medical history significant for chronic kidney disease stage IV, paroxysmal atrial fibrillation, chronic combined systolic and diastolic heart failure, hypertension, history of branch retinal vein occlusion, history of anemia, GERD, history of malignant neoplasm of colon, iron deficiency anemia, mitral and aortic incompetence, history of neutropenia, history of peripheral vascular disease, history of restless leg syndrome, history of hypothyroidism, osteoporosis, hyperlipidemia who was directly admitted by nephrology for dialysis. The patient recently 3 weeks ago was in [facility] and had a tunneled catheter placed and had dialysis 2 sessions. After that, the tunneled catheter was removed. As per family and patient they do not know why the dialysis was stopped and after going home she was not feeling well, still weak and tired, poor appetite, not feeling well and nephrology again decided to restart the dialysis and the dialysis catheter was again replaced and she was directly admitted for reinitiating of dialysis. She also has a bruise in her left upper extremity from the recent fistula placement. The patient denies any headaches. No blurred visions, some dizziness. No nausea, no vomiting, no chest pain, no shortness of breath, no cough, no fever, no chills, no abdominal pain. Constipated. Otherwise, feeling weak and tired and not walking much at home because of weakness and she lives with her son and family. Currently resting comfortably . ALLERGIES: CLARITHROMYCIN, PENICILLIN, SULFA ANTIBIOTICS. PAST MEDICAL HISTORY: As mentioned above. PAST SURGICAL HISTORY: Biopsy of the breast, colonoscopy with biopsy, tunneled catheter insertion, laparoscopic cholecystectomy, partial removal of colon, removal of ruptured appendix, cataract surgery, left carotid endarterectomy, total hysterectomy. The patient also has a right axillary to right femoral bypass and fem-fem bypass surgery. MEDICATIONS: The patient is on Toprol-XL 50 mg b.i.d., Colace 100 mg p.o. b.i.d., oxycodone 5 mg every 4 hours p.r.n., Tylenol 325 mg as needed, potassium chloride 20 mEq p.o. daily, Bumex 2 mg p.o. b.i.d., multivitamin with minerals 1 tablet daily, ferrous sulfate 325 mg p.o. b.i.d., cholecalciferol 5000 units p.o. daily, nitroglycerin 0.4 mg sublingual p.r.n., levothyroxine 112 mcg p.o. daily, amiodarone 200 mg p.o. daily, Lipitor 80 mg p.o. daily, oxygen 1 liter as directed at bedtime, Eliquis 2.5 mg p.o. b.i.d., vitamin B6 250 mg p.o. daily, calcitetrol 0.25 mcg p.o. daily, Requip 0.5 mg p.o. at bedtime, aspirin 81 mg p.o. daily. FAMILY HISTORY: Significant for father had throat cancer. Mother had diabetes. Sister has breast cancer and leukemia. Brother had leukemia. SOCIAL HISTORY: . Former smoker, quit in 1992. No alcohol use. No drug use. Currently lives with her son and family. REVIEW OF SYMPTOMS: As per HPI. Rest of review of systems negative. PHYSICAL EXAMINATION: GENERAL: Old and frail, not in distress. The physical exam reveals alert and oriented x3, not in distress. VITAL SIGNS: Currently unavailable. HEENT: No pallor, no icterus. NECK: No JVD, no neck masses, no carotid bruits. CARDIOVASCULAR: S1, S2 heard, regular rate and rhythm, no murmur, no gallop. RESPIRATORY SYSTEM: Clear to auscultation bilaterally. No wheezing, mild bibasilar crackles. ABDOMEN: Soft, bowel sounds present. Nontender. No distention. CENTRAL NERVOUS SYSTEM: Cranial nerves II-XII grossly intact. Nonfocal. EXTREMITIES: Trace edema. No erythema seen. 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 Large complex lesion of the left arm superficial to the brachial artery measures up to 6.1 cm suggesting hematoma. Patent brachial artery. -resumed eliquis as discussed with Vascular surgery, no plan for immediate intervention -CTA done to assess bypasses of her legs for any stenoses -Monitor Hb -Vascular Surgery consulted, no urgent need for intervention, patient advised to follow up with Vascular in [facility] as outpt -would need to hold eliquis, aspirin if plans for intervention ATRIAL FIBRILLATION: -is rate controlled -continued on amiodarone 200 mg daily -Metoprolol dose decreased to 25mg BID secondary to bradycardia -On Eliquis for anticoagulation -Cardiology consulted, appreciate input HTN: -controlled -continue diuretics, BB HYPOTHYROIDISM: -continue Synthroid RESTLESS LEGS SYNDROME: -continue Requip CHRONIC CHF: combined systolic and diastolic heart failure: -on Bumex -volume status being managed through dialysis as well -clinically has crackles bilaterally on exam PVD: -with presumed Ischemic Heart disease -EKG: Non specific ST-T wave changes -could not get cardiac cath in the past secondary to severe PVD -denies chest pain -continue ASA, statin, BB GERD: -continue PPI ANEMIA OF CKD: -on Iron supplements -IV Venofer at HD per Nephro HYPERLIPIDEMIA: -continue statin. PHYSICAL EXAM ON DAY OF DISCHARGE: GENERAL: Patient is in no acute distress. HEENT: No acute trauma, normocephalic, mucous membranes moist, no nasal congestion, no scleral icterus, conjunctivae clear. NECK: No stridor, trachea is midline. LUNGS: Slightly diminished bilaterally, no wheeze, no rhonchi, breath sounds equal. HEART: Without murmurs gallops or rubs, regular rate and rhythm. ABDOMEN: Soft, nontender, bowel sounds positive, no hepatosplenomegaly EXTREMITIES: No cyanosis or edema, LUE bruising and hematoma noted. Pulses found by doppler in LE NEUROLOGIC: Oriented x 3, no acute motor or sensory deficits, no focal weakness. SKIN: No rash, no jaundice, no diaphoresis. Total time spent on discharge = 37 This includes examination of the patient, discharge planning, medication reconciliation, and communication with other providers. Discharge Instructions See patient instructions
== END 2017-06-19 19:23 | disposition home health service (06) | DRG 291 ==
LOC: C.2T 17:16
PROVIDERS: ADMIT Internal Medicine; ATTEND Internal Medicine
DX: I13.2 Hypertensive heart and chronic kidney disease with heart failure and with stage 5 chronic kidney disease, or end stage renal disease (principal); N18.6 End stage renal disease; I50.43 Acute on chronic combined systolic (congestive) and diastolic (congestive) heart failure; I97.638 Postprocedural hematoma of a circulatory system organ or structure following other circulatory system procedure; I74.2 Embolism and thrombosis of arteries of the upper extremities; T82.598A Other mechanical complication of other cardiac and vascular devices and implants, initial encounter; N25.0 Renal osteodystrophy; Z99.2 Dependence on renal dialysis; I48.0 Paroxysmal atrial fibrillation; I95.9 Hypotension, unspecified; R00.1 Bradycardia, unspecified; E78.5 Hyperlipidemia, unspecified; E03.9 Hypothyroidism, unspecified; G25.81 Restless legs syndrome; I73.9 Peripheral vascular disease, unspecified; I25.5 Ischemic cardiomyopathy; K21.9 Gastro-esophageal reflux disease without esophagitis; D63.1 Anemia in chronic kidney disease; M81.0 Age-related osteoporosis without current pathological fracture; Z86.79 Personal history of other diseases of the circulatory system; Z95.828 Presence of other vascular implants and grafts; Z85.038 Personal history of other malignant neoplasm of large intestine; Z90.49 Acquired absence of other specified parts of digestive tract; Z87.891 Personal history of nicotine dependence; Z99.81 Dependence on supplemental oxygen; Z79.01 Long term (current) use of anticoagulants; Z79.82 Long term (current) use of aspirin; Z79.899 Other long term (current) drug therapy; Z80.0 Family history of malignant neoplasm of digestive organs; Z80.3 Family history of malignant neoplasm of breast; Z80.6 Family history of leukemia; Z83.3 Family history of diabetes mellitus; Z88.0 Allergy status to penicillin; Z88.1 Allergy status to other antibiotic agents; Z88.2 Allergy status to sulfonamides

== ENCOUNTER 2017-06-30 02:42 | Inpatient (IN) | payer OTHER ==
[2017-06-30] VITALS (8 sets, daily range): BP systolic 83–106; BP diastolic 56–66; PULSE 60–65; TEMP 36.6–36.9; O2SAT 94–100; Ht 157.5 cm; Wt 52.9 kg
[~2017-06-30] VITALS: Ht 157.5 cm; Wt 52.9 kg
[2017-06-30] MEDS ORDERED: METO25TA3 PO (03:25)
[2017-06-30] MEDS ORDERED: CEFD1CAP14 PO (03:26)
[2017-06-30] MEDS ORDERED: OXYC1TAB3 PO (03:27)
[2017-06-30] MEDS ORDERED: DOCU100C31 PO (03:27)
[2017-06-30] MEDS ORDERED: ACET-1311 PO (03:28)
[2017-06-30] MEDS ORDERED: POTA20TA13 PO (03:30)
[2017-06-30] MEDS ORDERED: BUME2TAB3 PO (03:31)
[2017-06-30] MEDS ORDERED: FERR1TAB13 PO (03:32)
[2017-06-30] MEDS ORDERED: CHOLTAB11 PO (03:34)
[2017-06-30] MEDS ORDERED: NTRGSL/4 UT (03:34)
[2017-06-30] MEDS ORDERED: LEVO112T4 PO (03:36)
[2017-06-30] MEDS ORDERED: AMIO200T4 PO (03:38)
[2017-06-30] MEDS ORDERED: ATOR-26 PO (03:39)
[2017-06-30] MEDS ORDERED: APIX1TAB PO (03:40)
[2017-06-30] MEDS ORDERED: OXGN (03:40)
[2017-06-30] MEDS ORDERED: PYRI100T4 PO (03:41)
[2017-06-30] MEDS ORDERED: CALC0.2510 PO (03:42)
[2017-06-30] MEDS ORDERED: ROPI0.5T15 PO (03:43)
[2017-06-30] MEDS ORDERED: ASPI-428 PO (03:44)
[2017-06-30] MEDS ORDERED: ALBUT/IPRATROP 3MG/0.5MG NEB 3 ML VIAL INH STA (04:04)
[2017-06-30] MEDS ORDERED: ACETAMINOPHEN 325 MG TAB PO PRN (04:15)
[2017-06-30] MEDS ORDERED: OXYCODONE HCL IR 5 MG TAB (IMMEDIATE RELEASE) PO PRN (04:15)
[2017-06-30] MEDS ORDERED: ALBUT/IPRATROP 3MG/0.5MG NEB 3 ML VIAL INH PRN ×2 (04:15→13:15)
[2017-06-30] MEDS ORDERED: PROCHLORPERAZINE INJ 5 MG in SYRINGE 4 ML IV PRN (04:30)
[2017-06-30] MEDS ORDERED: METHYLPREDNISOLONE IV 40 MG in SYRINGE 0 ML IV ONE (05:00)
[2017-06-30] MEDS ORDERED: APIXABAN 2.5 MG TAB PO ONE (05:00)
[2017-06-30] MEDS ORDERED: DOXYCYCLINE IV 100 MG in DEXTROSE 5% 100ML 100 ML IV ONE (05:00)
[2017-06-30 05:38] LABS: CALCIUM 8.4 mg/dl (8.5-10.1); CREATININE 1.91 mg/dl (0.60-1.20); POTASSIUM 3.5 mmol/L (3.5-5.1)
[2017-06-30 05:48] LABS: INFLUENZA A PCR Neg for Influ A (NEG); INFLUENZA B PCR Neg for Influ B (NEG)
--- NOTE | 2017-06-30 06:03 | HISTORY & PHYSICAL EXAMINATION ---
DATE OF ADMISSION: 06/30/2017 PRIMARY CARE PHYSICIAN: Dr. Mcdowell CHIEF COMPLAINT: Shortness of breath, cough. HISTORY OF PRESENT ILLNESS: History obtained from the patient and records. Medical history significant for chronic systolic heart failure secondary to EF of 45%-49% from a 2D echo in April 2017, CAD, PVD status post surgery, HTN, end-stage renal disease on hemodialysis, colon cancer status post surgery, past tobacco abuse, chronic anemia (baseline hemoglobin of 9-10). Recent confinement last month for end-stage renal disease - dialysis subsequently initiated. A few days ago, patient was seen at PCP's office complaining of nonproductive cough. Impression was bronchitis. Patient prescribed cefdinir. Had chills, worsening cough productive of yellow sputum, increasing shortness of breath Despite 2 doses off prescribed antibiotic. No aspiration. No unusual fluid retention/weight since dialysis yesterday. Patient evaluated at [facility]. Transferred to [facility] due to pulmonary congestion on CXR and potential need for emergent dialysis. MEDICAL HISTORY: As above. A 2D echo from April 2017 showed diffuse hypokinesis, EF 45-49%, moderate RV systolic dysfunction, moderate MR, TR, moderate pulmonary hypertension. SURGERIES: She has had vascular procedures orders, bowel resection, appendectomy, cholecystectomy, cataract surgery, hysterectomy. HOME MEDICATIONS: Include metoprolol, cefdinir, docusate sodium, Percocet, acetaminophen, potassium chloride, Bumex, ferrous sulfate, cholecalciferol, nitroglycerin, levothyroxine, amiodarone, Lipitor, Eliquis, Rocaltrol, Requip, aspirin. ALLERGIES: PENICILLIN, AND SULFA. FAMILY HISTORY: Leukemia, throat cancer, breast cancer. PERSONAL AND SOCIAL HISTORY: Past tobacco abuse, no alcohol intake. Retired cook. REVIEW OF SYSTEMS: As per HPI. All 10 systems reviewed. All other ROS negative. PHYSICAL EXAMINATION: VITAL SIGNS: Blood pressure was noted to be 96/60, pulse rate 64, RR 18, temperature 36.6, sats 94 on room air. GENERAL: Noted to be hyposthenic. No respiratory distress. Occasional coughing. SKIN: Pallor, warm. HEENT: Pale palpebral conjuctivae. No ptosis. Dry mucosa. Nasal cannula in place. NECK: Supple, nontender. CHEST: Occasional wheeze. Decreased breath sounds. HEART: Regular rate and rhythm. Systolic murmur. ABDOMEN: Soft, nontender. EXTREMITIES: No edema. No tenderness. No gross deformity. NEUROLOGIC: Coherent. No gross focality. LABORATORY AND DIAGNOSTIC STUDIES: From [facility] 06/29/17 Hemoglobin 10.6, hematocrit 32, white cell count 9.4, platelets 145. Sodium 139, potassium 3.7, chloride 110, CO2 28, BUN 22, creatinine 1.6, glucose 124. Lactate was 1.2. Troponin negative. EKG, as per my interpretation, rate 60, normal sinus rhythm, left axis deviation , no ischemia. Chest x-ray read from [facility], pulmonary vascular congestion. ASSESSMENT: 1. Complicated bronchitis. Possible COPD exacerbation (Emphysematous lungs on past CT imaging. Pulmonary hypertension on 2-D echo; no previous diagnosis of chronic lung disease) No sepsis. Failed outpatient treatment. Rule out flu. 2. Chronic systolic heart failure/ESRD on HD cardiorenal syndrome some congestion on CXR done at [place] [facility] yesterday Patient denies unusual fluid retention though. 3. Hypertension, blood pressure had been on the lower side. 4. hx CAD/PVD sp surgery 5. Atrial fibrillation, normal sinus rhythm, on apixaban . 6. Colon cancer, status post surgery. 7. Chronic anemia secondary to chronic kidney disease. 8. Past tobacco abuse. PLAN: Observation GMF Flu PCR swab Doxycycline, nebs, steroids. Continue home diuretics. Nephrology consult if patient still in house by Saturday07/02/17 for dialysis management PT OT eval Outpatient PFTs, patient may benefit from home inhalers DVT prophylaxis, Apixaban. Full code. MTDD
[2017-06-30] MEDS ORDERED: MAGNESIUM SULFATE 1GM / D5W 1 GM in PREMIXED IN D5W 100 ML IV ONE (06:15)
[2017-06-30] MEDS ORDERED: IV FLUIDS COMPLETED PRN (06:45)
[2017-06-30] MEDS: LEVOTHYROXINE 112 MCG TAB PO SCH (07:11)
[2017-06-30] MEDS: CHOLECALCIFEROL 1000 INTER.UNIT TAB PO SCH (10:11)
[2017-06-30] MEDS: DOCUSATE SODIUM 100 MG CAP PO SCH ×2 (10:11→19:42)
[2017-06-30] MEDS: ASPIRIN 81 MG ECTAB PO SCH (10:11)
[2017-06-30] MEDS: FERROUS SULFATE 325 MG TAB PO SCH ×2 (10:12→19:42)
[2017-06-30] MEDS: BUMETANIDE 1 MG TAB PO SCH ×2 (10:12→17:09)
[2017-06-30] MEDS: CALCITRIOL 0.25 MCG CAP PO SCH (10:12)
[2017-06-30] MEDS: ATORVASTATIN 40 MG TAB PO SCH (10:12)
[2017-06-30] MEDS: POTASSIUM CHLORIDE 20 MEQ TABCR PO SCH (10:12)
[2017-06-30] MEDS: AMIODARONE 200 MG TAB PO SCH (10:13)
[2017-06-30] MEDS: METOPROLOL SUCC 25MG EXT REL TAB PO SCH (10:13)
[2017-06-30] MEDS ORDERED: COUGH DROP (SUGAR FREE) LOZ 24 LOZ/1 BOX LOZ ONE (10:18)
--- NOTE | 2017-06-30 12:26 | Progress Note ---
Internal Med Progress Note Date of Service: Jun 30, 2017. Provider Documentation: SUBJECTIVE: Seen and examined at bedside States feeling better SOB improved Still has cough with expectoration also reports nausea Denies chest pain, dizziness, abdominal pain OBJECTIVE: Vital Signs-as noted below Physical Exam: General Appearance:Thin, no apparent distress Head: normocephalic, Atraumatic Eyes: normal inspection, EOMI, PERRL Neck: supple, Trachea midline Respiratory/Chest: Decreased breath sounds, Rhonchi on right side Cardiovascular: S1, S2, +systolic murmur Abdomen/GI:Soft, Non tender, Bowel sounds present Extremities/Musculoskeletal:normal inspection, no edema Neurologic/Psych:AAOX3, grossly no focal neurological deficits Skin: normal color, warm Lab data as noted below. ASSESSMENT & PLAN: Complicated bronchitis Advanced COPD per prior CT Patient denies history of COPD Failed outpatient treatment Omnicef Flu screen:negative Continue Doxycycline, Prednisone, Nebs Sputum culture:pending On home oxygen 1L at baseline Will need outpatient PFTs and inhalers upon discharge check CXR in AM May need Inhalers upon DC Hypomagnesemia: Replace and monitor Chronic ESRD: Chronic Oxygen dependency: on 1L at baseline Dialysis on TTS Will consult Nephrology for HD if still hospitalized on Saturday H/O atrial fibrillation: Rate controlled Continue amiodarone, Metoprolol On Eliquis for anticoagulation HTN: Stable Continue diuretics, BB HLP: Continue statin. Hypothyroidism: Continue Synthroid Restless legs syndrome: Continue Requip H/O chronic combined systolic and diastolic heart failure: No signs of volume overload on exam on Bumex Monitor daily weight PVD Presumed Ischemic Heart disease Could not get cardiac cath in the past secondary to severe PVD Continue ASA, stains, BB Anemia OF chronic kidney disease: continue Iron supplements DVT Px: On eliquis Code Status: Full code Disposition: Expect to discharge home when stable Vital Signs: Date Time Temp Pulse Resp B/P (MAP) Pulse Ox O2 Delivery O2 Flow Rate FiO2 06/30/17 08:50 97 Nasal Cannula 1.0 06/30/17 07:15 36.7 60 18 106/64 (78) 97 Nasal Cannula 2.0 06/30/17 04:37 65 16 98 Nasal Cannula 1.0 06/30/17 04:25 36.9 64 20 83/56 (65) 100 Nasal Cannula 1.0 06/30/17 02:30 36.6 63 12 99/60 94 Nasal Cannula 1.0 Lab Results: Results Past 24 Hours Test 06/30/17 04:47 06/30/17 05:00 Range/Units Sodium Level 136 136-145 mmol/L Potassium Level 3.5 3.5-5.1 mmol/L Chloride Level 99 98-107 mmol/L Carbon Dioxide Level 28 21-32 mmol/L Anion Gap 9.0 3-11 mmol/L Blood Urea Nitrogen 26 7-18 mg/dl Creatinine 1.91 0.60-1.20 mg/dl Est Creatinine Clear Calc Drug Dose 18.3 ml/min Estimated GFR () 28.0 Estimated GFR (Non- 24.1 BUN/Creatinine Ratio 13.7 10-20 Random Glucose 100 70-99 mg/dl Calcium Level 8.4 8.5-10.1 mg/dl Magnesium Level 1.7 1.8-2.4 mg/dl Influenza Type A (RT-PCR) Neg for Influ A NEG Influenza Type B (RT-PCR) Neg for Influ B NEG Microbiology Results 06/30/17 Gram Stain, Ordered Pending 06/30/17 Sputum Culture, Ordered Pending
[2017-06-30] MEDS: DOXYCYCLINE HYCLATE 100 MG CAP PO SCH (17:09)
[2017-06-30] MEDS: BENZONATATE 100MG CAP PO PRN (17:09)
[2017-06-30] MEDS: APIXABAN 2.5 MG TAB PO SCH (19:42)
[2017-06-30] MEDS: ROPINIROLE HCL 5 MG TAB PO SCH (19:42)
[2017-06-30] MEDS ORDERED: [UNRECOGNIZED DRUG - OTHER] SCH (21:00)
[2017-07-01] MEDS: LEVOTHYROXINE 112 MCG TAB PO SCH (05:42)
[2017-07-01] MEDS: BENZONATATE 100MG CAP PO PRN ×2 (05:42→16:08)
[2017-07-01] MEDS: DOXYCYCLINE HYCLATE 100 MG CAP PO SCH ×2 (05:44→17:00)
[2017-07-01 07:13] VITALS: BP 101/66; PULSE 67; TEMP 36.6; O2SAT 92
--- NOTE | 2017-07-01 08:06 | DIAGNOSTIC IMAGING REPORT ---
CHEST 2 VIEWS ROUTINE CLINICAL HISTORY: SOB dyspnea COMPARISON STUDY: 06/10/2017 FINDINGS: Moderate stable cardiomegaly. Stable calcification mitral annulus. PermCath superior vena cava. Mild chronic prominence of pulmonary vasculature improved from the prior study. IMPRESSION: Pulmonary vascular congestion. Improvement as compared to the prior study. The above report was generated using voice recognition software. It may contain grammatical, syntax or spelling errors. Electronically signed by: Cesar Arango M.D. 07/01/2017 8:04 AM Dictated Date/Time: 07/01/2017 8:03 AM
[2017-07-01 08:14] LABS: BASO % 0.2 %; BASO ABS # 0.02 K/uL (0-0.2); EOS % 0.1 %; EOS ABS # 0.01 K/uL (0-0.5); HEMATOCRIT 33.1 % (37-47); HEMOGLOBIN 10.1 g/dL (12.0-16.0); IG# 0.04 K/uL (0.00-0.02); LYMPH % 7.1 %; LYMPH ABS # 0.76 K/uL (1.2-3.4); MEAN CELL VOLUME 100.3 fL (80-100); MEAN CORPUSCULAR HEMOGLOBIN 30.6 pg (25-34); MEAN CORPUSCULAR HGB CONC 30.5 g/dl (32-36); MEAN PLATELET VOLUME 12.3 fL (7.4-10.4); MONO % 6.5 %; NEUT % 85.7 %; NEUT ABS # 9.23 K/uL (1.4-6.5); PLATELET COUNT 175 K/uL (130-400); RED CELL DISTRIBUTION WIDTH CV 25.6 % (11.5-14.5); WHITE BLOOD COUNT 10.76 K/uL (4.8-10.8)
[2017-07-01] MEDS: CALCITRIOL 0.25 MCG CAP PO SCH (08:20)
[2017-07-01] MEDS: ATORVASTATIN 40 MG TAB PO SCH (08:20)
[2017-07-01] MEDS: ASPIRIN 81 MG ECTAB PO SCH (08:20)
[2017-07-01] MEDS: FERROUS SULFATE 325 MG TAB PO SCH ×2 (08:20→20:29)
[2017-07-01] MEDS: AMIODARONE 200 MG TAB PO SCH (08:20)
[2017-07-01] MEDS: DOCUSATE SODIUM 100 MG CAP PO SCH ×3 (08:21→20:32)
[2017-07-01] MEDS: CHOLECALCIFEROL 1000 INTER.UNIT TAB PO SCH (08:21)
[2017-07-01] MEDS: POTASSIUM CHLORIDE 20 MEQ TABCR PO SCH (08:22)
[2017-07-01] MEDS: BUMETANIDE 1 MG TAB PO SCH ×2 (08:22→17:00)
[2017-07-01] MEDS: APIXABAN 2.5 MG TAB PO SCH ×2 (08:23→20:29)
[2017-07-01] MEDS: METOPROLOL SUCC 25MG EXT REL TAB PO SCH (08:23)
[2017-07-01 08:45] LABS: CREATININE 2.43 mg/dl (0.60-1.20); POTASSIUM 3.6 mmol/L (3.5-5.1)
[2017-07-01 09:29] VITALS: BP 113/74; PULSE 64; O2SAT 99
[2017-07-01 15:08] VITALS: BP 110/71; PULSE 63; TEMP 36.7; O2SAT 96
--- NOTE | 2017-07-01 17:15 | Progress Note ---
Internal Med Progress Note Date of Service: Jul 01, 2017. Provider Documentation: SUBJECTIVE: Seen and examined at bedside Fels very nauseous this morning which improved Less cough and SOB Denies chest pain, dizziness, abdominal pain Family at bedside OBJECTIVE: Vital Signs-as noted below Physical Exam: General Appearance:Thin, no apparent distress Head: normocephalic, Atraumatic Eyes: normal inspection, EOMI, PERRL Neck: supple, Trachea midline Respiratory/Chest: Decreased breath sounds, mild Rhonchi B/L Cardiovascular: S1, S2, +systolic murmur Abdomen/GI:Soft, Non tender, Bowel sounds present Extremities/Musculoskeletal:normal inspection, no edema Neurologic/Psych:AAOX3, grossly no focal neurological deficits Skin: normal color, warm Lab data as noted below. ASSESSMENT & PLAN: Complicated bronchitis Advanced COPD per prior CT Patient denies history of COPD Failed outpatient treatment Omnicef Flu screen:negative Continue Doxycycline, Prednisone, Nebs Sputum culture:pending On home oxygen 1L at baseline Will need PFTs as outpatient Repeat CXR: Pulmonary vascular congestion. Improvement as compared to the prior study. May need Inhalers upon DC Hypomagnesemia: Replace and monitor Chronic ESRD: Chronic Oxygen dependency: on 1L at baseline Dialysis on TTS Will consult Nephrology for HD H/O atrial fibrillation: Rate controlled Continue amiodarone, Metoprolol On Eliquis for anticoagulation HTN: Stable Continue diuretics, BB HLP: Continue statin. Hypothyroidism: Continue Synthroid Restless legs syndrome: Continue Requip H/O chronic combined systolic and diastolic heart failure: No signs of volume overload on exam on Bumex Monitor daily weight PVD Presumed Ischemic Heart disease Could not get cardiac cath in the past secondary to severe PVD Continue ASA, stains, BB Anemia OF chronic kidney disease: continue Iron supplements DVT Px: On eliquis Code Status: Full code Disposition: Expect to discharge home when stable Vital Signs: Date Time Temp Pulse Resp B/P (MAP) Pulse Ox O2 Delivery O2 Flow Rate FiO2 07/01/17 16:00 Nasal Cannula 1.0 07/01/17 15:08 36.7 63 18 110/71 (84) 96 Nasal Cannula 2.0 07/01/17 09:29 64 99 07/01/17 08:00 Nasal Cannula 1.0 07/01/17 07:13 36.6 67 18 101/66 (78) 92 Room Air 07/01/17 00:08 Nasal Cannula 1.0 06/30/17 22:52 36.6 62 18 96/62 (73) 95 Nasal Cannula 1.0 06/30/17 19:45 95 Nasal Cannula 1.0 Lab Results: Results Past 24 Hours Test 07/01/17 07:26 Range/Units White Blood Count 10.76 4.8-10.8 K/uL Red Blood Count 3.30 4.2-5.4 M/uL Hemoglobin 10.1 12.0-16.0 g/dL Hematocrit 33.1 37-47 % Mean Corpuscular Volume 100.3 80-100 fL Mean Corpuscular Hemoglobin 30.6 25-34 pg Mean Corpuscular Hemoglobin Concent 30.5 32-36 g/dl Platelet Count 175 130-400 K/uL Mean Platelet Volume 12.3 7.4-10.4 fL Neutrophils (%) (Auto) 85.7 % Lymphocytes (%) (Auto) 7.1 % Monocytes (%) (Auto) 6.5 % Eosinophils (%) (Auto) 0.1 % Basophils (%) (Auto) 0.2 % Neutrophils # (Auto) 9.23 1.4-6.5 K/uL Lymphocytes # (Auto) 0.76 1.2-3.4 K/uL Monocytes # (Auto) 0.70 0.11-0.59 K/uL Eosinophils # (Auto) 0.01 0-0.5 K/uL Basophils # (Auto) 0.02 0-0.2 K/uL RDW Standard Deviation 95.0 36.4-46.3 fL RDW Coefficient of Variation 25.6 11.5-14.5 % Immature Granulocyte % (Auto) 0.4 % Immature Granulocyte # (Auto) 0.04 0.00-0.02 K/uL Large Platelets 1+ Ovalocytes 1+ Acanthocytes 1+ Sodium Level 135 136-145 mmol/L Potassium Level 3.6 3.5-5.1 mmol/L Chloride Level 99 98-107 mmol/L Carbon Dioxide Level 29 21-32 mmol/L Anion Gap 7.0 3-11 mmol/L Blood Urea Nitrogen 41 7-18 mg/dl Creatinine 2.43 0.60-1.20 mg/dl Est Creatinine Clear Calc Drug Dose 14.4 ml/min Estimated GFR () 20.9 Estimated GFR (Non- 18.0 BUN/Creatinine Ratio 17.0 10-20 Random Glucose 99 70-99 mg/dl Calcium Level 9.0 8.5-10.1 mg/dl Magnesium Level 2.1 1.8-2.4 mg/dl Microbiology Results 06/30/17 Gram Stain - Final, Complete 06/30/17 Sputum Culture - Final, Complete
[2017-07-01] MEDS: ROPINIROLE HCL 5 MG TAB PO SCH (20:30)
[2017-07-01 23:49] VITALS: BP 102/64; PULSE 61; TEMP 36.6; O2SAT 98
[2017-07-02] VITALS (20 sets, daily range): BP systolic 99–141; BP diastolic 42–85; PULSE 62–86; TEMP 36.3–37; O2SAT 90–97
[2017-07-02] MEDS: BENZONATATE 100MG CAP PO PRN (06:15)
[2017-07-02 07:22] LABS: HEMATOCRIT 35.2 % (37-47); HEMOGLOBIN 10.5 g/dL (12.0-16.0); MEAN CELL VOLUME 102.3 fL (80-100); MEAN CORPUSCULAR HEMOGLOBIN 30.5 pg (25-34); MEAN CORPUSCULAR HGB CONC 29.8 g/dl (32-36); MEAN PLATELET VOLUME 12.1 fL (7.4-10.4); PLATELET COUNT 192 K/uL (130-400); RED CELL DISTRIBUTION WIDTH CV 25.3 % (11.5-14.5); RED CELL DISTRIBUTION WIDTH SD 94.2 fL (36.4-46.3); WHITE BLOOD COUNT 11.43 K/uL (4.8-10.8)
[2017-07-02] MEDS: POTASSIUM CHLORIDE 20 MEQ TABCR PO SCH (07:49)
[2017-07-02] MEDS: APIXABAN 2.5 MG TAB PO SCH ×2 (07:50→21:10)
[2017-07-02 07:55] LABS: CALCIUM 8.9 mg/dl (8.5-10.1); CREATININE 2.51 mg/dl (0.60-1.20); POTASSIUM 3.4 mmol/L (3.5-5.1)
--- NOTE | 2017-07-02 09:42 | NEPHROLOGY CONSULTATION ---
DATE OF CONSULTATION: 07/02/2017 ATTENDING OF RECORD: Dr. Finnegan. REASON FOR CONSULTATION: End-stage renal disease. HISTORY OF PRESENT ILLNESS: This is an 82-year-old female who dialyzes on Tuesdays, , and Saturdays at the [facility] dialysis unit, who has a history of colon cancer in the past, significant coronary artery disease with a history of congestive heart failure, who was started on dialysis secondary to recalcitrant volume overload. The patient has been having a nonproductive cough, keeping her up at night. She had attempted outpatient antibiotics, but it was not getting better. The patient was diagnosed with a complicated bronchitis. Screened for flu, which was negative. On steroids of prednisone 40 mg a day and Tessalon Perles as needed and doxy. The patient continues to have decreased appetite and nonproductive cough, but is interested in going home today if possible. PAST MEDICAL HISTORY: Diffuse hypokinesis, end-stage renal disease, significant pulmonary hypertension, hypertension, history of colon cancer, and congestive heart failure. PAST SURGICAL HISTORY: Tunneled dialysis catheter, partial bowel resection, appendectomy, and cholecystectomy. FAMILY HISTORY: Significant for cancer. SOCIAL HISTORY: Past tobacco use. No alcohol. No drugs. Lives at home. REVIEW OF SYSTEMS: No fevers or chills. Positive fatigue. Positive decreased appetite. Positive nonproductive cough. Positive chronic shortness of breath. No chest pain. No nausea or vomiting. No diarrhea or constipation. All other review of systems otherwise negative. CURRENT MEDICATIONS: Prednisone 40 mg a day, Eliquis 2.5 mg p.o. b.i.d., Requip 0.5 mg at night, doxycycline 100 mg p.o. b.i.d., amiodarone 200 mg daily, aspirin 81 mg a day, Lipitor 80 mg a day, Bumex 2 mg p.o. b.i.d., calcitriol 0.25 mg daily, Colace 100 mg p.o. b.i.d., Toprol-XL 25 mg daily, vitamin D 5000 units daily, iron 325 p.o. b.i.d., potassium 20 mEq daily, and Synthroid 112 mcg daily. PHYSICAL EXAMINATION: VITAL SIGNS: Temperature 36.3, pulse 62, respiratory rate 18, blood pressure 125/83, and satting 97% on 1 liter. GENERAL: Awake, alert, and oriented x3. EYES: No scleral icterus. ENT: Moist mucous membranes. NECK: Supple. PULMONARY: Decreased breath sounds at the bases with some occasional rales. CARDIAC: Distant heart sounds. ABDOMEN: Bowel sounds positive. Soft, nontender, and nondistended. EXTREMITIES: No clubbing, cyanosis or edema. NEUROLOGICALLY: Nonfocal. DERMATOLOGIC: No rash or ulcers noted. LABORATORIES: Sodium level is 134, potassium is 3.4, chloride is 98, bicarbonate is 27, BUN is 47, creatinine is 2.51, glucose 120, calcium is 8.9 and mag is 2. White count is 11, H&H 10 and 35, and platelet count is 192. Flu negative. Chest x-ray shows pulmonary vascular congestion. IMPRESSION AND PLAN: 1. End-stage renal disease. We will attempt 1 liter fluid removal today as blood pressure tolerates on a 4K bath given the fact that the potassium levels are in the 3s, on a potassium supplement. 2. Anemia of chronic kidney disease. Hemoglobin levels are in the 10s and we will hold on Procrit at this time. 3. Renal osteodystrophy. No phosphate binders at this time. We will follow the patient as an outpatient and adjust binders accordingly depending on phosphorus levels. 4. Dialysis. The patient was seen on dialysis. Blood pressure is stable, tolerating it well. The patient inquired about going home. We will defer to primary hospitalist. Okay from renal perspective to go home once medically cleared by primary hospitalist. I appreciate the consultation. MARIIA
--- NOTE | 2017-07-02 11:16 | Progress Note ---
Internal Med Progress Note Date of Service: Jul 02, 2017. Provider Documentation: SUBJECTIVE: Seen and examined at bedside Currently getting dialysis States had 3 loose BMs today Complains of cough, nausea and mild SOB Reports a bad coughing spell overnight Denies chest pain, dizziness, abdominal pain OBJECTIVE: Vital Signs-as noted below Physical Exam: General Appearance:Thin, no apparent distress Head: normocephalic, Atraumatic Eyes: normal inspection, EOMI, PERRL Neck: supple, Trachea midline Respiratory/Chest: Decreased breath sounds, B/L wheezes/Rhonchi Cardiovascular: S1, S2, +systolic murmur Abdomen/GI:Soft, Non tender, Bowel sounds present Extremities/Musculoskeletal:normal inspection, no edema Neurologic/Psych:AAOX3, grossly no focal neurological deficits Skin: normal color, warm Lab data as noted below. ASSESSMENT & PLAN: Complicated bronchitis Advanced COPD per prior CT Patient denies history of COPD Failed outpatient treatment Omnicef Flu screen:negative Continue Doxycycline, Prednisone, Nebs Will add Ceftriaxone today Sputum culture:Contamination On home oxygen 1L at baseline Will need PFTs as outpatient Repeat CXR: Pulmonary vascular congestion. Improvement as compared to the prior study. May need Inhalers upon DC Pulmonary Toilet Repeat CXR tomorrow Diarrhea: Will consider to check for C.diff if diarrhea reoccurs Hold Stool softeners for now Hypokalemia/Hypomagnesemia: Replace and monitor Chronic ESRD: Chronic Oxygen dependency: on 1L at baseline Dialysis on TTS Appreciate Nephrology help H/O atrial fibrillation: Rate controlled Continue amiodarone, Metoprolol On Eliquis for anticoagulation HTN: Stable Continue diuretics, BB HLP: Continue statin. Hypothyroidism: Continue Synthroid Restless legs syndrome: Continue Requip H/O chronic combined systolic and diastolic heart failure: No signs of volume overload on exam on Bumex Monitor daily weight PVD Presumed Ischemic Heart disease Could not get cardiac cath in the past secondary to severe PVD Continue ASA, stains,metoprolol Anemia OF chronic kidney disease: continue Iron supplements DVT Px: On eliquis Code Status: Full code Disposition: Expect to discharge home with Home Health when stable Vital Signs: Date Time Temp Pulse Resp B/P (MAP) Pulse Ox O2 Delivery O2 Flow Rate FiO2 07/02/17 10:45 73 128/78 07/02/17 10:30 72 127/80 07/02/17 10:15 72 119/57 07/02/17 10:00 73 113/60 07/02/17 09:45 71 121/71 07/02/17 09:30 68 116/55 07/02/17 09:15 69 112/58 07/02/17 09:00 65 99/57 07/02/17 08:40 36.6 64 107/60 (76) 07/02/17 08:00 Nasal Cannula 1.0 07/02/17 07:56 36.3 62 18 125/83 (97) 97 Room Air 07/02/17 00:26 Nasal Cannula 1.0 07/01/17 23:49 36.6 61 20 102/64 (77) 98 Room Air 07/01/17 21:33 Nasal Cannula 1.0 07/01/17 16:00 Nasal Cannula 1.0 07/01/17 15:08 36.7 63 18 110/71 (84) 96 Nasal Cannula 2.0 Lab Results: Results Past 24 Hours Test 07/02/17 06:55 Range/Units White Blood Count 11.43 4.8-10.8 K/uL Red Blood Count 3.44 4.2-5.4 M/uL Hemoglobin 10.5 12.0-16.0 g/dL Hematocrit 35.2 37-47 % Mean Corpuscular Volume 102.3 80-100 fL Mean Corpuscular Hemoglobin 30.5 25-34 pg Mean Corpuscular Hemoglobin Concent 29.8 32-36 g/dl RDW Standard Deviation 94.2 36.4-46.3 fL RDW Coefficient of Variation 25.3 11.5-14.5 % Platelet Count 192 130-400 K/uL Mean Platelet Volume 12.1 7.4-10.4 fL Sodium Level 134 136-145 mmol/L Potassium Level 3.4 3.5-5.1 mmol/L Chloride Level 98 98-107 mmol/L Carbon Dioxide Level 27 21-32 mmol/L Anion Gap 9.0 3-11 mmol/L Blood Urea Nitrogen 47 7-18 mg/dl Creatinine 2.51 0.60-1.20 mg/dl Est Creatinine Clear Calc Drug Dose 13.9 ml/min Estimated GFR () 20.1 Estimated GFR (Non- 17.4 BUN/Creatinine Ratio 18.8 10-20 Random Glucose 120 70-99 mg/dl Calcium Level 8.9 8.5-10.1 mg/dl Magnesium Level 2.0 1.8-2.4 mg/dl
[2017-07-02] MEDS: CEFTRIAXONE SOD INJ 1 GM in DEXTROSE 5% ADD-VANTAGE 50ML 50 ML IV SCH ×2 (12:00→13:30)
[2017-07-02] MEDS: METOPROLOL SUCC 25MG EXT REL TAB PO SCH (12:22)
[2017-07-02] MEDS: ATORVASTATIN 40 MG TAB PO SCH (12:22)
[2017-07-02] MEDS: DOXYCYCLINE HYCLATE 100 MG CAP PO SCH ×2 (12:23→18:02)
[2017-07-02] MEDS: FERROUS SULFATE 325 MG TAB PO SCH ×2 (12:23→21:09)
[2017-07-02] MEDS: CALCITRIOL 0.25 MCG CAP PO SCH (12:23)
[2017-07-02] MEDS: BUMETANIDE 1 MG TAB PO SCH (12:24)
[2017-07-02] MEDS: CHOLECALCIFEROL 1000 INTER.UNIT TAB PO SCH (12:24)
[2017-07-02] MEDS: AMIODARONE 200 MG TAB PO SCH (12:25)
[2017-07-02] MEDS: ASPIRIN 81 MG ECTAB PO SCH (12:25)
[2017-07-02] MEDS: LEVOTHYROXINE 112 MCG TAB PO SCH (12:44)
[2017-07-02] MEDS: LACTOBACILLUS ACIDOPHILUS (FLORANEX) TAB PO SCH ×2 (12:55→18:01)
[2017-07-02] MEDS: ALBUT/IPRATROP 3MG/0.5MG NEB 3 ML VIAL INH SCH ×2 (14:02→20:16)
--- NOTE | 2017-07-02 15:31 | DIAGNOSTIC IMAGING REPORT ---
CHEST ONE VIEW PORTABLE CLINICAL HISTORY: COPD. Pneumonia. Congestive failure. COMPARISON STUDY: 07/01/2017 FINDINGS: The heart is enlarged. There is a right internal jugular dual-lumen central venous catheter. There are increasing bilateral pulmonary airspace opacities, likely representing progressive pulmonary edema. A superimposed infectious process cannot be excluded. Trace bilateral pleural effusions are suspected.[ IMPRESSION: Worsening congestive failure and pulmonary edema pattern Electronically signed by: Jayant Velarde M.D. 07/02/2017 3:29 PM Dictated Date/Time: 07/02/2017 3:29 PM
[2017-07-02] MEDS ORDERED: BUMETANIDE IV 2 MG in SYRINGE 0 ML IV ONE (16:30)
[2017-07-02] MEDS: ROPINIROLE HCL 5 MG TAB PO SCH (21:10)
[2017-07-03] VITALS (8 sets, daily range): BP systolic 88–113; BP diastolic 47–72; PULSE 71–87; TEMP 36.3–36.7; O2SAT 91–97
[2017-07-03] MEDS: ALBUT/IPRATROP 3MG/0.5MG NEB 3 ML VIAL INH SCH ×4 (02:02→19:30)
[2017-07-03] MEDS: LEVOTHYROXINE 112 MCG TAB PO SCH (05:54)
[2017-07-03] MEDS: DOXYCYCLINE HYCLATE 100 MG CAP PO SCH ×2 (05:54→17:35)
--- NOTE | 2017-07-03 07:28 | DIAGNOSTIC IMAGING REPORT ---
CHEST ONE VIEW PORTABLE CLINICAL HISTORY: Cough, SOB dyspnea COMPARISON STUDY: 07/02/2017 FINDINGS: Slightly improved components of congestive failure and or pulmonary edema. The central catheter remains in the superior vena cava. Diaphragms smooth. Mild improvement in aeration both hemithoraces. IMPRESSION: Improving pulmonary edema and/or congestive failure The above report was generated using voice recognition software. It may contain grammatical, syntax or spelling errors. Electronically signed by: Cesar Arango M.D. 07/03/2017 7:27 AM Dictated Date/Time: 07/03/2017 7:26 AM
[2017-07-03] MEDS: ATORVASTATIN 40 MG TAB PO SCH (07:37)
[2017-07-03] MEDS: ASPIRIN 81 MG ECTAB PO SCH (07:37)
[2017-07-03] MEDS: CALCITRIOL 0.25 MCG CAP PO SCH (07:37)
[2017-07-03] MEDS: AMIODARONE 200 MG TAB PO SCH (07:37)
[2017-07-03] MEDS: CHOLECALCIFEROL 1000 INTER.UNIT TAB PO SCH (07:37)
[2017-07-03] MEDS: POTASSIUM CHLORIDE 20 MEQ TABCR PO SCH (07:38)
[2017-07-03] MEDS: APIXABAN 2.5 MG TAB PO SCH ×2 (07:38→20:29)
[2017-07-03] MEDS: BUMETANIDE 1 MG TAB PO SCH ×2 (07:39→17:35)
[2017-07-03] MEDS: METOPROLOL SUCC 25MG EXT REL TAB PO SCH (07:39)
[2017-07-03] MEDS: LACTOBACILLUS ACIDOPHILUS (FLORANEX) TAB PO SCH ×3 (07:40→17:34)
[2017-07-03 07:42] LABS: HEMATOCRIT 30.2 % (37-47); HEMOGLOBIN 9.5 g/dL (12.0-16.0); MEAN CELL VOLUME 98.7 fL (80-100); MEAN CORPUSCULAR HGB CONC 31.5 g/dl (32-36); MEAN PLATELET VOLUME 11.7 fL (7.4-10.4); PLATELET COUNT 166 K/uL (130-400); RED CELL DISTRIBUTION WIDTH CV 24.5 % (11.5-14.5); RED CELL DISTRIBUTION WIDTH SD 89.8 fL (36.4-46.3); WHITE BLOOD COUNT 8.21 K/uL (4.8-10.8)
[2017-07-03] MEDS: FERROUS SULFATE 325 MG TAB PO SCH ×2 (07:43→20:29)
[2017-07-03 08:24] LABS: CALCIUM 8.8 mg/dl (8.5-10.1); CREATININE 1.76 mg/dl (0.60-1.20); POTASSIUM 3.8 mmol/L (3.5-5.1)
[2017-07-03] MEDS: CEFTRIAXONE SOD INJ 1 GM in DEXTROSE 5% ADD-VANTAGE 50ML 50 ML IV SCH (11:54)
--- NOTE | 2017-07-03 14:10 | Progress Note ---
Internal Med Progress Note Date of Service: Jul 03, 2017. Provider Documentation: SUBJECTIVE: The patient was seen and examined Much better today Denies any more Chest p[ain and SOB is better OBJECTIVE: Vital Signs-as noted below Exam: General-no distress at rest Eyes-normal ENT-normal Neck-supple Lungs-Decreased breath sound bilaterally Minimal wheezing bilaterally Heart-Regular Abdomen-Benign Extremities-Trace edema bilaterally Neuro-AAOx3 Generally weak Lab data as noted below. ASSESSMENT & PLAN: Complicated bronchitis Advanced COPD per prior CT Patient denies history of COPD-Explained clearly to the patient and educated about COPD Failed outpatient treatment Omnicef Flu screen:negative Continue Doxycycline, Prednisone, Nebs Ceftriaxone added on 07/02/17 Sputum culture:Contamination On home oxygen 1L at baseline Will need PFTs as outpatient Repeat CXR: Pulmonary vascular congestion. Improvement as compared to the prior study. Will need Inhalers upon DC Pulmonary Toilet Repeat CXR tomorrow -mildly congested Received 1 dose of IV Bumex yesterday Much better today Diarrhea with Hypokalemia/Hypomagnesemia: Will consider to check for C.diff if diarrhea reoccurs Hold Stool softeners for now Will send Stool for C Diff Replace electrolytes and monitor Chronic ESRD: Chronic Oxygen dependency: on 1L at baseline Dialysis on TTS Appreciate Nephrology help HD tomorrow d/w [employer] H/O atrial fibrillation: Rate controlled Continue amiodarone, Metoprolol On Eliquis for anticoagulation HTN: Stable Continue diuretics, BB HLP: Continue statin. Hypothyroidism: Continue Synthroid Restless legs syndrome: Continue Requip No acute issue H/O chronic combined systolic and diastolic heart failure: No signs of volume overload on exam on Bumex Monitor daily weight PVD Presumed Ischemic Heart disease Could not get cardiac cath in the past secondary to severe PVD Continue ASA, stains,metoprolol Anemia OF chronic kidney disease: continue Iron supplements DVT Px: On eliquis Code Status: Full code Disposition: Expect to discharge home with Home Health when stable Vital Signs: Date Time Temp Pulse Resp B/P (MAP) Pulse Ox O2 Delivery O2 Flow Rate FiO2 07/03/17 08:00 Nasal Cannula 2.0 07/03/17 07:14 71 16 96 Nasal Cannula 2.0 07/03/17 07:10 36.4 73 18 113/72 (86) 96 Nasal Cannula 2.0 07/03/17 02:02 74 16 92 Nasal Cannula 2.0 07/03/17 00:25 36.7 73 20 88/47 (61) 91 Nasal Cannula 2.0 07/02/17 23:30 Nasal Cannula 2.0 07/02/17 20:16 71 16 91 Nasal Cannula 2.0 07/02/17 16:00 90 Nasal Cannula 2.0 07/02/17 14:54 37.0 86 18 116/78 (91) 90 Nasal Cannula 2.0 Lab Results: Results Past 24 Hours Test 07/02/17 14:09 07/03/17 06:59 Range/Units Troponin I < 0.015 0-0.045 ng/ml White Blood Count 8.21 4.8-10.8 K/uL Red Blood Count 3.06 4.2-5.4 M/uL Hemoglobin 9.5 12.0-16.0 g/dL Hematocrit 30.2 37-47 % Mean Corpuscular Volume 98.7 80-100 fL Mean Corpuscular Hemoglobin 31.0 25-34 pg Mean Corpuscular Hemoglobin Concent 31.5 32-36 g/dl RDW Standard Deviation 89.8 36.4-46.3 fL RDW Coefficient of Variation 24.5 11.5-14.5 % Platelet Count 166 130-400 K/uL Mean Platelet Volume 11.7 7.4-10.4 fL Sodium Level 134 136-145 mmol/L Potassium Level 3.8 3.5-5.1 mmol/L Chloride Level 100 98-107 mmol/L Carbon Dioxide Level 26 21-32 mmol/L Anion Gap 8.0 3-11 mmol/L Blood Urea Nitrogen 31 7-18 mg/dl Creatinine 1.76 0.60-1.20 mg/dl Est Creatinine Clear Calc Drug Dose 19.8 ml/min Estimated GFR () 30.9 Estimated GFR (Non- 26.7 BUN/Creatinine Ratio 17.7 10-20 Random Glucose 103 70-99 mg/dl Calcium Level 8.8 8.5-10.1 mg/dl Magnesium Level 1.8 1.8-2.4 mg/dl
[2017-07-03] MEDS: ROPINIROLE HCL 5 MG TAB PO SCH (20:30)
[2017-07-04] VITALS (19 sets, daily range): BP systolic 97–128; BP diastolic 55–78; PULSE 63–80; TEMP 36.4–36.6; O2SAT 93–99
[2017-07-04] MEDS: ALBUT/IPRATROP 3MG/0.5MG NEB 3 ML VIAL INH SCH ×3 (01:48→14:12)
[2017-07-04] MEDS: LEVOTHYROXINE 112 MCG TAB PO SCH (06:12)
[2017-07-04] MEDS: DOXYCYCLINE HYCLATE 100 MG CAP PO SCH ×2 (06:12→16:59)
[2017-07-04 08:21] LABS: BASO % 0.1 %; BASO ABS # 0.01 K/uL (0-0.2); EOS % 0.1 %; EOS ABS # 0.01 K/uL (0-0.5); HEMATOCRIT 31.3 % (37-47); HEMOGLOBIN 9.9 g/dL (12.0-16.0); IG# 0.04 K/uL (0.00-0.02); LYMPH % 9.1 %; LYMPH ABS # 0.86 K/uL (1.2-3.4); MEAN CELL VOLUME 98.4 fL (80-100); MEAN CORPUSCULAR HEMOGLOBIN 31.1 pg (25-34); MEAN CORPUSCULAR HGB CONC 31.6 g/dl (32-36); MEAN PLATELET VOLUME 11.4 fL (7.4-10.4); MONO % 7.1 %; MONO ABS # 0.67 K/uL (0.11-0.59); NEUT % 83.2 %; NEUT ABS # 7.91 K/uL (1.4-6.5); PLATELET COUNT 198 K/uL (130-400); RED CELL DISTRIBUTION WIDTH CV 24.3 % (11.5-14.5); RED CELL DISTRIBUTION WIDTH SD 89.2 fL (36.4-46.3)
[2017-07-04] MEDS: FERROUS SULFATE 325 MG TAB PO SCH (08:21)
[2017-07-04] MEDS: APIXABAN 2.5 MG TAB PO SCH (08:22)
[2017-07-04] MEDS: CHOLECALCIFEROL 1000 INTER.UNIT TAB PO SCH (08:23)
[2017-07-04] MEDS: ASPIRIN 81 MG ECTAB PO SCH (08:23)
[2017-07-04] MEDS: ATORVASTATIN 40 MG TAB PO SCH (08:24)
[2017-07-04] MEDS: CALCITRIOL 0.25 MCG CAP PO SCH (08:24)
[2017-07-04] MEDS: LACTOBACILLUS ACIDOPHILUS (FLORANEX) TAB PO SCH ×2 (08:24→12:50)
[2017-07-04] MEDS: POTASSIUM CHLORIDE 20 MEQ TABCR PO SCH (08:25)
[2017-07-04 09:01] LABS: CALCIUM 8.9 mg/dl (8.5-10.1); CREATININE 1.99 mg/dl (0.60-1.20); POTASSIUM 2.9 mmol/L (3.5-5.1)
[2017-07-04] MEDS ORDERED: POTASSIUM CHLORIDE 10 MEQ TABCR PO ONE (09:45)
--- NOTE | 2017-07-04 12:05 | Clinical Documentation Query ---
CLINICAL DOCUMENTATION QUERY 82-y/o female with SOB and cough. Per recent progress notes this patient is being diagnosed with COPD. H&P stated this patient as being in exacerbation and lung exam revealed occasional wheezes. Query #1/2 In your clinical opinion is this patient being managed for: ( + ) COPD "exacerbation" with "acute" bronchits ( ) Not Agree ( ) Other explanation of clinical findings (Please Explain) ( ) Unable to determine (Please Define) ( ) Need to Discuss Already there The medical record reflects the following clinical findings, treatment, and risk factors. Clinical Indicators: As above. Treatment: O2, Duonebs, Tessalon Perles, IV Solumedrol Risk Factors: Age, Bronchitis and COPD Query #2/2 In your clinical opinion is this patient being managed for: ( + ) Acute on chronic systolic CHF in setting of ESRD and COPD exacerbation treated with Diuretics and Dialysis ( ) Not Agree ( ) Other explanation of clinical findings (Please Explain) ( ) Unable to determine (Please Define) ( ) Need to Discuss The medical record reflects the following clinical findings, treatment, and risk factors. Clinical Indicators: Rales to bases per Nephrology, CXR showing pulmonary vascular congestion that improved with treatment. Treatment: dialysis Risk Factors: ESRD, underlying bronchitis and COPD Please clarify and document your clinical opinion in the progress notes and discharge summary. Terms such as "probable", "suspected", "likely", "questionable", "possible", or "still to be ruled out" are acceptable. IF IN AGREEMENT, YOU MUST DOCUMENT ABOVE DIAGNOSTIC STATEMENT IN DAILY PROGRESS NOTES AND DISCHARGE SUMMARY. This document is not part of the patient's record. Thank You, Dayron Guardado, DESI [phone]
--- NOTE | 2017-07-04 12:17 | Progress Note ---
Internal Med Progress Note Date of Service: Jul 04, 2017. Provider Documentation: SUBJECTIVE: The patient was seen and examined Much better today Denies any more Chest pain and SOB is better S/P Dialysis Much better to be discharged OBJECTIVE: Vital Signs-as noted below Exam: General-no distress at rest Eyes-normal ENT-normal Neck-supple Lungs-Decreased breath sound bilaterally Minimal wheezing bilaterally Heart-Regular Abdomen-Benign Extremities-Trace edema bilaterally Neuro-AAOx3 Generally weak Lab data as noted below. ASSESSMENT & PLAN: COPD exacerbation with Complicated bronchitis Advanced COPD per prior CT Patient denies history of COPD-Explained clearly to the patient and educated about COPD Failed outpatient treatment Omnicef Flu screen:negative Continue Doxycycline, Prednisone, Nebs Ceftriaxone added on 07/02/17 Sputum culture:Contamination On home oxygen 1L at baseline Will need PFTs as outpatient Repeat CXR: Pulmonary vascular congestion. Improvement as compared to the prior study. Will need Inhalers upon DC Pulmonary Toilet Repeat CXR tomorrow -mildly congested Received 1 dose of IV Bumex yesterday Much better today Diarrhea with Hypokalemia/Hypomagnesemia: Will consider to check for C.diff if diarrhea reoccurs Hold Stool softeners for now Will send Stool for C Diff Replace electrolytes and monitor Check PRP at 2 PM Chronic ESRD: Chronic Oxygen dependency: on 1L at baseline Dialysis on TTS Appreciate Nephrology help HD tomorrow d/w [employer] H/O atrial fibrillation: Rate controlled Continue amiodarone, Metoprolol On Eliquis for anticoagulation HTN: Stable Continue diuretics, BB HLP: Continue statin. Hypothyroidism: Continue Synthroid Restless legs syndrome: Continue Requip No acute issue H/O chronic combined systolic and diastolic heart failure with Acute Exacerbation on Bumex and received IV dose and Dialysis Clinically better PVD Presumed Ischemic Heart disease Could not get cardiac cath in the past secondary to severe PVD Continue ASA, stains,metoprolol Anemia OF chronic kidney disease: continue Iron supplements DVT Px: On eliquis Code Status: Full code Disposition: Expect to discharge home with Home Health when stable Vital Signs: Date Time Temp Pulse Resp B/P (MAP) Pulse Ox O2 Delivery O2 Flow Rate FiO2 07/04/17 14:12 78 16 99 Nasal Cannula 1.0 07/04/17 12:31 36.6 68 120/72 (88) 07/04/17 12:15 70 118/72 07/04/17 12:00 80 114/55 07/04/17 11:45 70 126/65 07/04/17 11:30 70 126/78 07/04/17 11:15 69 119/75 07/04/17 11:00 71 128/76 07/04/17 10:45 71 120/76 07/04/17 10:30 70 127/78 07/04/17 10:00 71 110/63 07/04/17 09:45 71 111/69 07/04/17 09:30 71 97/60 07/04/17 09:20 36.6 64 113/71 (85) 07/04/17 08:00 Nasal Cannula 1.0 07/04/17 07:29 36.6 63 18 117/72 (87) 99 2.0 07/04/17 07:12 64 16 98 Nasal Cannula 1.0 07/04/17 01:48 74 16 96 Nasal Cannula 1.0 07/03/17 23:25 Nasal Cannula 1.0 07/03/17 22:31 36.6 87 16 88/60 (69) 92 Nasal Cannula 1.0 07/03/17 19:12 76 16 96 Nasal Cannula 1.0 07/03/17 16:10 Nasal Cannula 1.0 07/03/17 15:51 36.3 76 18 103/70 (81) 94 Nasal Cannula 1.0 Lab Results: Results Past 24 Hours Test 07/04/17 07:53 07/04/17 14:02 Range/Units White Blood Count 9.50 4.8-10.8 K/uL Red Blood Count 3.18 4.2-5.4 M/uL Hemoglobin 9.9 12.0-16.0 g/dL Hematocrit 31.3 37-47 % Mean Corpuscular Volume 98.4 80-100 fL Mean Corpuscular Hemoglobin 31.1 25-34 pg Mean Corpuscular Hemoglobin Concent 31.6 32-36 g/dl Platelet Count 198 130-400 K/uL Mean Platelet Volume 11.4 7.4-10.4 fL Neutrophils (%) (Auto) 83.2 % Lymphocytes (%) (Auto) 9.1 % Monocytes (%) (Auto) 7.1 % Eosinophils (%) (Auto) 0.1 % Basophils (%) (Auto) 0.1 % Neutrophils # (Auto) 7.91 1.4-6.5 K/uL Lymphocytes # (Auto) 0.86 1.2-3.4 K/uL Monocytes # (Auto) 0.67 0.11-0.59 K/uL Eosinophils # (Auto) 0.01 0-0.5 K/uL Basophils # (Auto) 0.01 0-0.2 K/uL RDW Standard Deviation 89.2 36.4-46.3 fL RDW Coefficient of Variation 24.3 11.5-14.5 % Immature Granulocyte % (Auto) 0.4 % Immature Granulocyte # (Auto) 0.04 0.00-0.02 K/uL Large Platelets 1+ Sodium Level 135 133 136-145 mmol/L Potassium Level 2.9 4.1 3.5-5.1 mmol/L Chloride Level 98 100 98-107 mmol/L Carbon Dioxide Level 27 27 21-32 mmol/L Anion Gap 10.0 6.0 3-11 mmol/L Blood Urea Nitrogen 38 14 7-18 mg/dl Creatinine 1.99 1.10 0.60-1.20 mg/dl Est Creatinine Clear Calc Drug Dose 17.5 31.7 ml/min Estimated GFR () 26.6 54.5 Estimated GFR (Non- 23.0 47.0 BUN/Creatinine Ratio 19.2 12.4 10-20 Random Glucose 84 136 70-99 mg/dl Calcium Level 8.9 8.1 8.5-10.1 mg/dl
[2017-07-04] MEDS: CEFTRIAXONE SOD INJ 1 GM in DEXTROSE 5% ADD-VANTAGE 50ML 50 ML IV SCH (12:50)
[2017-07-04] MEDS: BUMETANIDE 1 MG TAB PO SCH (12:50)
[2017-07-04] MEDS: METOPROLOL SUCC 25MG EXT REL TAB PO SCH (12:51)
[2017-07-04] MEDS: AMIODARONE 200 MG TAB PO SCH (12:51)
[2017-07-04 14:39] LABS: CALCIUM 8.1 mg/dl (8.5-10.1); CREATININE 1.1 mg/dl (0.60-1.20); POTASSIUM 4.1 mmol/L (3.5-5.1)
[2017-07-04] MEDS ORDERED: PRVHFAIN INH (15:01)
[2017-07-04] MEDS ORDERED: DXY100 PO (15:01)
[2017-07-04] MEDS ORDERED: PRED10TA PO (15:01)
[2017-07-04] MEDS ORDERED: IPRASOL4 INH (15:01)
--- NOTE | 2017-07-04 15:03 | Discharge Instructions ---
Discharge Instructions Date of Service Jul 04, 2017. Admission Reason for Admission: CHF Discharge Discharge Diagnosis / Problem: COPD exacerbation,Bronchitis Discharge Goals Goal(s): Prevent Disease Progression Activity Recommendations Activity Limitations: resume your previous activity . Instructions / Follow-Up Instructions / Follow-Up Please make an appointment with your PCP in 1 week.Continue Dialysis Current Hospital Diet Patient's current hospital diet: Renal Diet Discharge Diet Recommended Diet: Renal Diet Pending Studies Studies pending at discharge: no Medical Emergencies . Who to Call and When: Medical Emergencies: If at any time you feel your situation is an emergency, please call 911 immediately. . Non-Emergent Contact Non-Emergency issues call your: Primary Care Provider . Past History Medical & Surgical History: (1) ESRD needing dialysis (2) SOB (shortness of breath) (3) COPD exacerbation . "Provider Documentation" section prepared by Shankar Finnegan. . VTE Core Measure Inpt VTE Proph given/why not?: Other Anticoagulation
--- NOTE | 2017-07-04 16:28 | Nephrology Progress Note ---
Nephrology Progress Note Date of Service: Jul 04, 2017. Subjective 82 yo female with esrd who dialyzes t-h-s at the [facility]. had dialysis today. continues to have cough but would like to go home. tolerated dialysis well today. Objective Date Time Temp Pulse Resp B/P (MAP) Pulse Ox O2 Delivery O2 Flow Rate FiO2 07/04/17 16:00 Nasal Cannula 1.0 07/04/17 15:43 36.4 76 18 93 Nasal Cannula 07/04/17 15:37 36.4 76 18 105/66 (79) 93 Nasal Cannula 1.0 07/04/17 14:12 78 16 99 Nasal Cannula 1.0 07/04/17 12:31 36.6 68 120/72 (88) 07/04/17 12:15 70 118/72 07/04/17 12:00 80 114/55 07/04/17 11:45 70 126/65 07/04/17 11:30 70 126/78 07/04/17 11:15 69 119/75 07/04/17 11:00 71 128/76 07/04/17 10:45 71 120/76 07/04/17 10:30 70 127/78 07/04/17 10:00 71 110/63 07/04/17 09:45 71 111/69 07/04/17 09:30 71 97/60 07/04/17 09:20 36.6 64 113/71 (85) 07/04/17 08:00 Nasal Cannula 1.0 07/04/17 07:29 36.6 63 18 117/72 (87) 99 2.0 07/04/17 07:12 64 16 98 Nasal Cannula 1.0 07/04/17 01:48 74 16 96 Nasal Cannula 1.0 07/03/17 23:25 Nasal Cannula 1.0 07/03/17 22:31 36.6 87 16 88/60 (69) 92 Nasal Cannula 1.0 07/03/17 19:12 76 16 96 Nasal Cannula 1.0 Physical Exam: General-aaox3 Eyes-no scleral icterus ENT-mmm Neck-supple Lungs-decreased at bases Heart-rrr Abdomen-bs+ s/nt/nd Extremities-no c/c/e Neuro-nonfocal Current Inpatient Medications Medications (Trade) Dose Ordered Sig/Lashae Route Start Time Stop Time Status Last Admin Dose Admin Doxycycline Hyclate (Vibramycin Cap) 100 mg BID@0700,1800 PO 06/30/17 18:00 07/07/17 06:59 07/04/17 06:12 100 MG Prednisone (PredniSONE TAB) 40 mg DAILY PO 07/01/17 09:00 07/06/17 08:59 07/04/17 08:21 40 MG Acetaminophen (Tylenol Tab) 650 mg Q4H PRN PO 06/30/17 04:15 07/30/17 04:14 Amiodarone HCl (Cordarone Tab) 200 mg DAILY PO 06/30/17 09:00 07/30/17 08:59 07/04/17 12:51 200 MG Apixaban (Eliquis Tab) 2.5 mg BID PO 06/30/17 21:00 07/30/17 20:59 07/04/17 08:22 2.5 MG Aspirin (Ecotrin Tab) 81 mg DAILY PO 06/30/17 09:00 07/30/17 08:59 07/04/17 08:23 81 MG Atorvastatin Calcium (Lipitor Tab) 80 mg DAILY PO 06/30/17 09:00 07/30/17 08:59 07/04/17 08:24 80 MG Bumetanide (Bumex Tab) 2 mg BID17 PO 06/30/17 09:00 07/30/17 08:59 Future hold 07/04/17 12:50 2 MG Calcitriol (Rocaltrol Cap) 0.25 mcg DAILY PO 06/30/17 09:00 07/30/17 08:59 07/04/17 08:24 0.25 MCG Docusate Sodium (coLACE CAP) 100 mg BID PO 06/30/17 09:00 07/30/17 08:59 Future Hold 06/30/17 10:11 100 MG Levothyroxine Sodium (Synthroid Tab) 112 mcg DAILYBB PO 06/30/17 06:30 07/30/17 06:29 07/04/17 06:12 112 MCG Metoprolol Succinate (Toprol Xl Tab) 25 mg DAILY PO 06/30/17 09:00 07/30/17 08:59 07/04/17 12:51 25 MG Oxycodone HCl (Roxicodone Immediate Rel Tab) 5 mg Q4H PRN PO 06/30/17 04:15 07/14/17 04:14 Ropinirole HCl (Requip Tab) 0.5 mg HS PO 06/30/17 21:00 07/30/17 20:59 07/03/17 20:30 0.5 MG Cholecalciferol (Vitamin D Tab) 5,000 inter.unit DAILY PO 06/30/17 09:00 07/30/17 08:59 07/04/17 08:23 5,000 INTER.UNIT Ferrous Sulfate (Feosol Tab) 325 mg BID PO 06/30/17 09:00 07/30/17 08:59 07/04/17 08:21 325 MG Potassium Chloride (Klor-Con Tab) 20 meq DAILY PO 06/30/17 09:00 07/30/17 08:59 07/04/17 08:25 20 MEQ Prochlorperazine Edisylate 5 mg/ Syringe 5 ml @ 5 mls/min Q6H PRN IV 06/30/17 04:30 07/30/17 04:29 07/01/17 08:15 5 MLS/MIN Benzonatate (Tessalon Perles Cap) 100 mg Q8H PRN PO 06/30/17 04:30 07/30/17 04:29 07/02/17 06:15 100 MG Miscellaneous (Iv Fluids Completed) 1 ea PRN PRN N/A 06/30/17 06:45 06/30/18 06:44 Lactobacillus Acidophilus (Floranex Tab) 4 tab TIDM PO 07/02/17 12:00 08/01/17 11:59 07/04/17 12:50 4 TAB Ceftriaxone Sodium 1 gm/ Dextrose 50 ml @ 100 mls/hr Q24H IV 07/02/17 12:00 07/09/17 11:59 07/04/17 12:50 100 MLS/HR Albuterol/ Ipratropium (Duoneb) 3 ml Q6R INH 07/02/17 15:00 08/01/17 14:59 07/04/17 14:12 3 ML Last 24 Hours Test 07/04/17 07:53 07/04/17 14:02 White Blood Count 9.50 K/uL Red Blood Count 3.18 M/uL Hemoglobin 9.9 g/dL Hematocrit 31.3 % Mean Corpuscular Volume 98.4 fL Mean Corpuscular Hemoglobin 31.1 pg Mean Corpuscular Hemoglobin Concent 31.6 g/dl Platelet Count 198 K/uL Mean Platelet Volume 11.4 fL Neutrophils (%) (Auto) 83.2 % Lymphocytes (%) (Auto) 9.1 % Monocytes (%) (Auto) 7.1 % Eosinophils (%) (Auto) 0.1 % Basophils (%) (Auto) 0.1 % Neutrophils # (Auto) 7.91 K/uL Lymphocytes # (Auto) 0.86 K/uL Monocytes # (Auto) 0.67 K/uL Eosinophils # (Auto) 0.01 K/uL Basophils # (Auto) 0.01 K/uL RDW Standard Deviation 89.2 fL RDW Coefficient of Variation 24.3 % Immature Granulocyte % (Auto) 0.4 % Immature Granulocyte # (Auto) 0.04 K/uL Large Platelets 1+ Sodium Level 135 mmol/L 133 mmol/L Potassium Level 2.9 mmol/L 4.1 mmol/L Chloride Level 98 mmol/L 100 mmol/L Carbon Dioxide Level 27 mmol/L 27 mmol/L Anion Gap 10.0 mmol/L 6.0 mmol/L Blood Urea Nitrogen 38 mg/dl 14 mg/dl Creatinine 1.99 mg/dl 1.10 mg/dl Est Creatinine Clear Calc Drug Dose 17.5 ml/min 31.7 ml/min Estimated GFR () 26.6 54.5 Estimated GFR (Non- 23.0 47.0 BUN/Creatinine Ratio 19.2 12.4 Random Glucose 84 mg/dl 136 mg/dl Calcium Level 8.9 mg/dl 8.1 mg/dl Assessment & Plan ESRD-pt urinated a lot last night-continue dialysis t-h-s. dialyzed today. ok from renal perspective to go home. breathing easier. decreased at bases. chronic cough which is improving. hypokalemia-k was low and dialyzed on a 4k bath. giving potassium supplementation. k better this afternoon.
--- NOTE | 2017-07-04 17:41 | Discharge Summary ---
Discharge Summary Date of Service Jul 04, 2017. Discharge Summary Admission Date: Jul 02, 2017 at 13:56 Discharge Date: Jul 04, 2017 Discharge Disposition: Home with services Principal Diagnosis: COPD exacerbation,Bronchitis,ESRD on HD Secondary Diagnoses/Problems: Please see H&P and Hospital progress note Consultations: Nephrology Medication Reconciliation New Medications: Albuterol (Ventolin Hfa) 60 Puffs/5400 Mcg Aers 2 PUFFS INH Q6HWA for Wheezing, #1 Prednisone Tab (Prednisone) 10 Mg Tab 10 MG PO UD for 15 Days, #30 TAB 3 po daily for 5 days ,2 po daily for 5 days and then 1 po daily for 5 days Doxycycline Hyclate (Doxycycline Hyclate) 100 Mg Cap 100 MG PO BID@0700,1800 for 4 Days, #8 CAP Ipratropium-Albuterol (Duoneb) 3 Ml Nebu 3 ML INH Q6R PRN for Wheezing for 10 Days, #30 Continued Medications: Acetaminophen (Tylenol) 325 Mg Tab 325 MG PO DIRECTED PRN for Pain or Fever, TAB Amiodarone Hcl (Cordarone) 200 Mg Tab 200 MG PO DAILY, TAB Apixaban (Eliquis) 2.5 Mg Tab 2.5 MG PO BID, TAB Aspirin (Ecotrin Low Strength) 81 Mg Tab 81 MG PO DAILY for 30 Days, #30 TAB 3 Refills Atorvastatin (Lipitor) 80 Mg Tab 80 MG PO DAILY, TAB Bumetanide (Bumex) 2 Mg Tab 2 MG PO BID, TAB Calcitriol (Rocaltrol Cap) 0.25 Mcg Cap 0.25 MCG PO DAILY, CAP Cholecalciferol (D-5000) 5,000 Unit Tab 5000 UNITS PO DAILY for 30 Days, TAB 3 Refills Docusate Sodium (Docusate Sodium) 100 Mg Cap 100 MG PO BID for 7 Days, #14 CAP Ferrous Sulfate (Kp Ferrous Sulfate) 325 Mg Tab 325 MG PO BID for 30 Days, #60 TAB 3 Refills Home O2 Therapy (Oxygen) Gas 1 LITER NA HS, BTL Levothyroxine Sodium (Levothyroxine Sodium) 112 Mcg Tab 112 MCG PO DAILY for 90 Days, #90 TAB 3 Refills take in am at least 30 min. prior to breakfast or other meals Metoprolol Succ (Toprol Xl) (Toprol-Xl) 25 Mg Tabcr 25 MG PO DAILY, #30 TAB Nitroglycerin (Nitrostat) 0.4 Mg Tab 0.4 MG UT PRN for chest pain, BTL place 0.4mg under the tongue every 5 minutes as needed for chest pain x 3 Oxycodone Ir (Roxicodone Ir) 5 Mg Tab 5 MG PO Q4H PRN for Severe Pain, TAB Potassium Chloride Microencaps (Potassium Chloride Er) 20 Meq Tab 20 MEQ PO DAILY for 90 Days, #90 TAB 3 Refills Pyridoxine (Vitamin B6) 100 Mg Tab 50 MG PO DAILY, TAB Ropinirole (Requip) 0.5 Mg Tab 0.5 MG PO HS, TAB Discontinued Medications: Cefdinir (Omnicef) 300 Mg Cap 300 MG PO Q2D, CAP Admission Information HPI (per Admitting provider): DATE OF ADMISSION: 06/30/2017 PRIMARY CARE PHYSICIAN: Dr. Mcdowell CHIEF COMPLAINT: Shortness of breath, cough. HISTORY OF PRESENT ILLNESS: History obtained from the patient and records. Medical history significant for chronic systolic heart failure secondary to EF of 45%-49% from a 2D echo in April 2017, CAD, PVD status post surgery, HTN, end-stage renal disease on hemodialysis, colon cancer status post surgery, past tobacco abuse, chronic anemia (baseline hemoglobin of 9-10). Recent confinement last month for end-stage renal disease - dialysis subsequently initiated. A few days ago, patient was seen at PCP's office complaining of nonproductive cough. Impression was bronchitis. Patient prescribed cefdinir. Had chills, worsening cough productive of yellow sputum, increasing shortness of breath Despite 2 doses off prescribed antibiotic. No aspiration. No unusual fluid retention/weight since dialysis yesterday. Patient evaluated at [facility]. Transferred to [facility] due to pulmonary congestion on CXR and potential need for emergent dialysis. MEDICAL HISTORY: As above. A 2D echo from April 2017 showed diffuse hypokinesis, EF 45-49%, moderate RV systolic dysfunction, moderate MR, TR, moderate pulmonary hypertension. SURGERIES: She has had vascular procedures orders, bowel resection, appendectomy, cholecystectomy, cataract surgery, hysterectomy. HOME MEDICATIONS: Include metoprolol, cefdinir, docusate sodium, Percocet, acetaminophen, potassium chloride, Bumex, ferrous sulfate, cholecalciferol, nitroglycerin, levothyroxine, amiodarone, Lipitor, Eliquis, Rocaltrol, Requip, aspirin. ALLERGIES: PENICILLIN, AND SULFA. FAMILY HISTORY: Leukemia, throat cancer, breast cancer. PERSONAL AND SOCIAL HISTORY: Past tobacco abuse, no alcohol intake. Retired cook. REVIEW OF SYSTEMS: As per HPI. All 10 systems reviewed. All other ROS negative. PHYSICAL EXAMINATION: VITAL SIGNS: Blood pressure was noted to be 96/60, pulse rate 64, RR 18, temperature 36.6, sats 94 on room air. GENERAL: Noted to be hyposthenic. No respiratory distress. Occasional coughing. SKIN: Pallor, warm. HEENT: Pale palpebral conjuctivae. No ptosis. Dry mucosa. Nasal cannula in place. NECK: Supple, nontender. CHEST: Occasional wheeze. Decreased breath sounds. HEART: Regular rate and rhythm. Systolic murmur. ABDOMEN: Soft, nontender. EXTREMITIES: No edema. No tenderness. No gross deformity. NEUROLOGIC: Coherent. No gross focality. LABORATORY AND DIAGNOSTIC STUDIES: From [facility] 06/29/17 Hemoglobin 10.6, hematocrit 32, white cell count 9.4, platelets 145. Sodium 139, potassium 3.7, chloride 110, CO2 28, BUN 22, creatinine 1.6, glucose 124. Lactate was 1.2. Troponin negative. EKG, as per my interpretation, rate 60, normal sinus rhythm, left axis deviation , no ischemia. Chest x-ray read from [place], pulmonary vascular congestion. ASSESSMENT: 1. Complicated bronchitis. Possible COPD exacerbation (Emphysematous lungs on past CT imaging. Pulmonary hypertension on 2-D echo; no previous diagnosis of chronic lung disease) No sepsis. Failed outpatient treatment. Rule out flu. 2. Chronic systolic heart failure/ESRD on HD cardiorenal syndrome some congestion on CXR done at [place] [facility] yesterday Patient denies unusual fluid retention though. 3. Hypertension, blood pressure had been on the lower side. 4. hx CAD/PVD sp surgery 5. Atrial fibrillation, normal sinus rhythm, on apixaban . 6. Colon cancer, status post surgery. 7. Chronic anemia secondary to chronic kidney disease. 8. Past tobacco abuse. PLAN: Observation [facility] Flu PCR swab Doxycycline, nebs, steroids. Continue home diuretics. Nephrology consult if patient still in house by Saturday07/02/17 for dialysis management PT OT eval Outpatient PFTs, patient may benefit from home inhalers DVT prophylaxis, Apixaban. Full code. Hospital Course COPD exacerbation with Complicated bronchitis Advanced COPD per prior CT Patient denies history of COPD-Explained clearly to the patient and educated about COPD Failed outpatient treatment Omnicef Flu screen:negative Continue Doxycycline, Prednisone, Nebs Ceftriaxone added on 07/02/17 Sputum culture:Contamination On home oxygen 1L at baseline Will need PFTs as outpatient Repeat CXR: Pulmonary vascular congestion. Improvement as compared to the prior study. Will need Inhalers upon DC Pulmonary Toilet Repeat CXR tomorrow -mildly congested Received 1 dose of IV Bumex yesterday Much better today Diarrhea with Hypokalemia/Hypomagnesemia: Will consider to check for C.diff if diarrhea reoccurs Hold Stool softeners for now Will send Stool for C Diff Replace electrolytes and monitor Check PRP at 2 PM Chronic ESRD: Chronic Oxygen dependency: on 1L at baseline Dialysis on TTS Appreciate Nephrology help HD tomorrow d/w [employer] H/O atrial fibrillation: Rate controlled Continue amiodarone, Metoprolol On Eliquis for anticoagulation HTN: Stable Continue diuretics, BB HLP: Continue statin. Hypothyroidism: Continue Synthroid Restless legs syndrome: Continue Requip No acute issue H/O chronic combined systolic and diastolic heart failure with Acute Exacerbation on Bumex and received IV dose and Dialysis Clinically better PVD Presumed Ischemic Heart disease Could not get cardiac cath in the past secondary to severe PVD Continue ASA, stains,metoprolol Anemia OF chronic kidney disease: continue Iron supplements DVT Px: On eliquis Code Status: Full code Disposition: Expect to discharge home with Home Health when stable Total time spent on discharge = 35 minutes This includes examination of the patient, discharge planning, medication reconciliation, and communication with other providers. Discharge Instructions Date of Service Jul 04, 2017. Admission Reason for Admission: CHF Discharge Discharge Diagnosis / Problem: COPD exacerbation,Bronchitis Discharge Goals Goal(s): Prevent Disease Progression Activity Recommendations Activity Limitations: resume your previous activity . Instructions / Follow-Up Instructions / Follow-Up Please make an appointment with your PCP in 1 week.Continue Dialysis Current Hospital Diet Patient's current hospital diet: Renal Diet Discharge Diet Recommended Diet: Renal Diet Pending Studies Studies pending at discharge: no Medical Emergencies . Who to Call and When: Medical Emergencies: If at any time you feel your situation is an emergency, please call 911 immediately. . Non-Emergent Contact Non-Emergency issues call your: Primary Care Provider . Past History Medical & Surgical History: (1) ESRD needing dialysis (2) SOB (shortness of breath) (3) COPD exacerbation . "Provider Documentation" section prepared by Shankar Finnegan. . VTE Core Measure Inpt VTE Proph given/why not?: Other Anticoagulation <Electronically signed by Shankar Finnegan M.D.> Signed: 07/04/17 [id number]
== END 2017-07-04 18:01 | disposition home health service (06) | DRG 291 ==
LOC: INTOOBSV 02:42 → C.MSICU 02:42 → ENRESERV 04:04 → C.MS2W 04:25 → OBSVTOIN 07-02 13:56
PROVIDERS: ADMIT Internal Medicine; ATTEND Internal Medicine
DX: I13.2 Hypertensive heart and chronic kidney disease with heart failure and with stage 5 chronic kidney disease, or end stage renal disease (principal); N18.6 End stage renal disease; I50.42 Chronic combined systolic (congestive) and diastolic (congestive) heart failure; J44.1 Chronic obstructive pulmonary disease with (acute) exacerbation; J44.0 Chronic obstructive pulmonary disease with (acute) lower respiratory infection; J40 Bronchitis, not specified as acute or chronic; I25.10 Atherosclerotic heart disease of native coronary artery without angina pectoris; E83.42 Hypomagnesemia; I48.91 Unspecified atrial fibrillation; D63.1 Anemia in chronic kidney disease; E87.6 Hypokalemia; E03.9 Hypothyroidism, unspecified; R19.7 Diarrhea, unspecified; G25.81 Restless legs syndrome; Z79.01 Long term (current) use of anticoagulants; Z79.82 Long term (current) use of aspirin; Z79.899 Other long term (current) drug therapy; Z85.038 Personal history of other malignant neoplasm of large intestine; Z99.2 Dependence on renal dialysis; Z99.81 Dependence on supplemental oxygen; Z88.0 Allergy status to penicillin; Z88.2 Allergy status to sulfonamides; Z98.890 Other specified postprocedural states; Z80.3 Family history of malignant neoplasm of breast; Z80.6 Family history of leukemia; Z80.8 Family history of malignant neoplasm of other organs or systems